=== PATIENT | male | born 1960 | race Caucasian/White ===

== ENCOUNTER 2017-03-21 18:12 | Emergency (ER) | payer MEDICARE, MEDICAID ==
[2017-03-21] MEDS ORDERED: IPRATROPIUM/ALBUTEROL 0.5-2.5 MG/3 ML AMPUL NEB SCH (19:45)
--- NOTE | 2017-03-21 19:45 | ER Document Report ---
ED Medical Screen (RME) - General Chief Complaint: Breathing Difficulty Stated Complaint: DIFFICULTY BREATHING Time Seen by Provider: 03/21/17 19:42 Notes: 57-year-old male with past medical history as recorded who presents today stating 10 days of some shortness of breath, mostly with exertion. Patient states some "congestion" in the chest. Patient states some chest discomfort over the last week and a half. He states baseline 1+ pitting edema to the legs. He denies any nausea, vomiting, or fevers. Patient does have a history of COPD. Patient states the shortness of breath is actually improved over the last 24 hours. Patient no longer smokes and is not on any home oxygen TRAVEL OUTSIDE OF THE [place] IN LAST 30 DAYS: No - Related Data Allergies/Adverse Reactions: Penicillins Allergy (Verified 03/21/17 19:21) Past Medical History Pulmonary Medical History: Reports: Hx COPD Denies: Hx Tuberculosis Renal/ Medical History: Denies: Hx Peritoneal Dialysis Past Surgical History: Reports: Hx Tonsillectomy - Immunizations Hx Diphtheria, Pertussis, Tetanus Vaccination: No - unk Physical Exam - Vital signs Vitals: Temp Pulse Resp BP Pulse Ox 97.5 F 104 H 20 113/86 H 99 03/21/17 18:46 03/21/17 18:46 03/21/17 18:46 03/21/17 18:46 03/21/17 18:46 Course - Vital Signs Vital signs: Temp Pulse Resp BP Pulse Ox 97.5 F 104 H 20 113/86 H 99 03/21/17 18:46 03/21/17 18:46 03/21/17 18:46 03/21/17 18:46 03/21/17 18:46
[2017-03-21 20:31] LABS: ABSOLUTE BASOPHILS # (AUTO) 0.1 10^3/uL (0.0-0.2); ABSOLUTE EOSINOPHILS # (AUTO) 0.1 10^3/uL (0.0-0.6); ABSOLUTE LYMPHOCYTES (AUTO) 1.3 10^3/uL (0.5-4.7); ABSOLUTE MONOCYTES (AUTO) 0.3 10^3/uL (0.1-1.4); ABSOLUTE NEUT (AUTO) 4.7 10^3/uL (1.7-8.2); BASOPHILS % (AUTO) 1.3 % (0-2); EOSINOPHILS % (AUTO) 1.8 % (0-6); HEMATOCRIT 39.7 % (37.9-51.0); HGB HCT DIFFERENCE -0.7; MEAN CORPUSCULAR HEMOGLOBIN 28.6 pg (27.0-33.4); MEAN CORPUSCULAR HGB CONC 32.7 g/dL (32.0-36.0); MEAN CORPUSCULAR VOLUME 88 fl (80-97); MONOCYTES % (AUTO) 5.1 % (3-13); RED BLOOD COUNT 4.54 10^6/uL (4.35-5.55); RED CELL DISTRIBUTION WIDTH 15.1 % (11.5-14.0); SEGMENTED NEUTROPHILS % (AUTO) 71.8 % (42-78); WHITE BLOOD COUNT 6.6 10^3/uL (4.0-10.5)
[2017-03-21 20:53] LABS: ANION GAP 15 (5-19); BLOOD UREA NITROGEN 16 mg/dL (7-20); CALCIUM 10.1 mg/dL (8.4-10.2); CARBON DIOXIDE 24 mmol/L (22-30); CHLORIDE 104 mmol/L (98-107); CREATININE RESULT 1.23 mg/dL (0.52-1.25); GLUCOSE 109 mg/dL (75-110); POTASSIUM 4.5 mmol/L (3.6-5.0)
[2017-03-21 21:03] LABS: TROPONIN I < 0.012 ng/mL
[2017-03-21] MEDS ORDERED: IPRATROPIUM/ALBUTEROL 0.5-2.5 MG/3 ML AMPUL NEB ONE (23:20)
[2017-03-21] MEDS ORDERED: PREDNISONE 20 MG TABLET PO ONE (23:43)
--- NOTE | 2017-03-21 23:49 | ER Document Report ---
ED General - General Chief Complaint: Breathing Difficulty Stated Complaint: DIFFICULTY BREATHING Time Seen by Provider: 03/21/17 19:42 Notes: Patient is a 57-year-old male with past medical history of COPD who presents with 3 days of shortness of breath. States that the symptoms of action been better today than they were 2 days ago. He has been using his inhalers at home with moderate improvement of symptoms. He notes that exertion tends to worsen his symptoms. He denies any associated chest pain, nausea, vomiting, diaphoresis or pain radiating into the arms, jaw or back. He has a history of similar symptoms in the past and has had COPD exacerbations. He has not seen his primary care doctor regarding today's concerns. He denies any increased sputum production, fever, chills or altered mental status. He denies any prior history of CHF although notes that he has chronic lower extremity edema. TRAVEL OUTSIDE OF THE [place] IN LAST 30 DAYS: No - Related Data Allergies/Adverse Reactions: Penicillins Allergy (Verified 03/21/17 19:21) Past Medical History - General Information source: Patient - Social History Smoking Status: Former Smoker Frequency of alcohol use: None Drug Abuse: None Lives with: Alone Family History: CAD, DM, Malignancy Patient has suicidal ideation: No Patient has homicidal ideation: No Pulmonary Medical History: Reports: Hx COPD Denies: Hx Tuberculosis Renal/ Medical History: Denies: Hx Peritoneal Dialysis Past Surgical History: Reports: Hx Tonsillectomy - Immunizations Hx Diphtheria, Pertussis, Tetanus Vaccination: No - unk Review of Systems - Review of Systems Notes: Constitutional: Negative for fever. HENT: Negative for sore throat. Eyes: Negative for visual changes. Cardiovascular: Negative for chest pain. Respiratory: Positive for shortness of breath. Gastrointestinal: Negative for abdominal pain, vomiting or diarrhea. Genitourinary: Negative for dysuria. Musculoskeletal: Negative for back pain. Skin: Negative for rash. Neurological: Negative for headaches, weakness or numbness. 10 point ROS negative except as marked above and in HPI. Physical Exam - Vital signs Vitals: Temp Pulse Resp BP Pulse Ox 97.5 F 104 H 20 113/86 H 99 03/21/17 18:46 03/21/17 18:46 03/21/17 18:46 03/21/17 18:46 03/21/17 18:46 Interpretation: Tachycardic Notes: PHYSICAL EXAMINATION: GENERAL: Well-appearing, well-nourished and in no acute distress. HEAD: Atraumatic, normocephalic. EYES: Pupils equal round and reactive to light, extraocular movements intact, sclera anicteric, conjunctiva are normal. ENT: nares patent, oropharynx clear without exudates. Moist mucous membranes. NECK: Normal range of motion, supple without lymphadenopathy LUNGS: Breath sounds clear to auscultation bilaterally and equal. No wheezes rales or rhonchi. HEART: Regular rate and rhythm without murmurs ABDOMEN: Soft, nontender, normoactive bowel sounds. No guarding, no rebound. No masses appreciated. EXTREMITIES: Normal range of motion, trace edema in the bilateral lower extremity as well as equal and symmetric. No cyanosis. NEUROLOGICAL: No focal neurological deficits. Moves all extremities spontaneously and on command. PSYCH: Normal mood, normal affect. SKIN: Warm, Dry, normal turgor, no rashes or lesions noted. Course - Re-evaluation Re-evalutation: 03/21/17 23:43 Patient presents with a mild exacerbation of their baseline COPD. Mild wheezing at time of presentation but vitals do not show significant hypoxemia or tachypnea. No retractions. Patient did clinically improve after receiving nebulizers here in the emergency department. Chest x-ray without evidence of an acute pneumonia. Laboratories do not show acute kidney injury or significant leukocytosis. Patient able to ambulate without any respiratory distress. Based on patient's overall reassuring assessment, I believe they are stable for outpatient management with steroids. Patient has nebulizers at home. I do not suspect an acute alternative pathology at this time based on history and exam including acute pulmonary embolus, ACS, pneumothorax, or aortic dissection. Patient did have appropriate BMP sent in triage which is elevated without an old for comparison. Do not believe that this is the cause of his symptoms today as he has no evidence of pulmonary edema or significant cardiac enlargement on chest x-ray, has no diminished breath sounds, no significant peripheral edema. He has also had complete resolution of his symptoms after receiving a nebulizer. However, I will refer to cardiology for an outpatient echocardiogram as patient has no known prior history of congestive failure. At this time will discharge with return precautions and follow-up recommendations. Verbal discharge instructions given a the bedside and opportunity for questions given. Medication warnings reviewed. Patient is in agreement with this plan and has verbalized understanding of return precautions and the need for primary care follow-up in the next 24-72 hours. - Vital Signs Vital signs: Temp Pulse Resp BP Pulse Ox 97.5 F 104 H 20 113/86 H 99 03/21/17 18:46 03/21/17 18:46 03/21/17 18:46 03/21/17 18:46 03/21/17 18:46 - Laboratory Result Diagrams: 03/21/17 19:50 03/21/17 19:50 Laboratory results interpreted by me: 03/21/17 03/21/17 19:50 19:50 Hgb 13.0 L RDW 15.1 H NT-Pro-B Natriuret Pep 6260 H - Diagnostic Test Radiology reviewed: Image reviewed, Reports reviewed Radiology results interpreted by me: 03/21/17 23:44 Chest x-ray: No pulmonary edema Discharge - Discharge Clinical Impression: Shortness of breath, COPD exacerbation Condition: Good Disposition: HOME, SELF-CARE Additional Instructions: You were seen for a COPD exacerbation. Your symptoms improved with treatment here in the emergency department. However, it is very important that you return to the emergency department immediately if you began to have worsening difficulty breathing that does not respond to your normal home nebulizers. You are also being sent home on a five-day course of steroids that you should start taking tomorrow. Please also follow closely with your primary care physician. You should return to emergency department if you develop fever greater than 101, persistent cough, persistent vomiting, pass out, or any other symptoms that are concerning to you. Please also follow up with the bread racker for an outpatient ultrasound of the heart as one of your laboratories today suggest you may have a component of heart failure. Prescriptions: Prednisone [Deltasone 20 mg Tablet] 3 tab PO DAILY 5 Days Referrals: EMMANUEL PEREZ MD [ACTIVE STAFF] - Follow up as needed
[2017-03-22 00:27] VITALS: BP 117/99
== END 2017-03-22 00:36 | disposition home or self-care (01) ==
LOC: ER 18:12
DX: R06.02 Shortness of breath (principal); J44.1 Chronic obstructive pulmonary disease with (acute) exacerbation; Z87.891 Personal history of nicotine dependence
CPT/HCPCS: 99285; 36415; 85025; 80048; 84484; 83880; 71020; A9270; J7512

== ENCOUNTER 2017-04-07 12:45 | Emergency (ER) | payer MEDICARE, MEDICAID ==
[2017-04-07] MEDS ORDERED: ALBUTEROL SULFATE 0.083% NEB 2.5 MG/3 ML AMPUL NEB SCH (13:30)
--- NOTE | 2017-04-07 13:35 | ER Document Report ---
ED Medical Screen (E) - General Chief Complaint: Shortness Of Breath Stated Complaint: SHORTNESS OF BREATH Time Seen by Provider: 04/07/17 13:27 Mode of Arrival: Ambulatory Notes: 57 yo male presents to ed for shortness of breath, weakness, insomnia since he ran out of his medication from his last visit. States he is not able to sleep more than an hour at a times. He states he is tired and weak all the time. States he has not follow up with primary md yet because he was getting the run around, but has [facility] Monday at 13 :15. I examined this patient in [facility] and started treatment. He will be seen by another provide in the ed for his treatment. TRAVEL OUTSIDE OF THE [place] IN LAST 30 DAYS: No - Related Data Allergies/Adverse Reactions: Penicillins Allergy (Verified 04/07/17 12:49) Past Medical History Pulmonary Medical History: Reports: Hx COPD Denies: Hx Tuberculosis Renal/ Medical History: Denies: Hx Peritoneal Dialysis Past Surgical History: Reports: Hx Tonsillectomy - Immunizations Hx Diphtheria, Pertussis, Tetanus Vaccination: No - unk Physical Exam - Vital signs Vitals: Temp Pulse Resp BP Pulse Ox 97.8 F 114 H 22 H 132/97 H 97 04/07/17 12:49 04/07/17 12:49 04/07/17 12:49 04/07/17 12:49 04/07/17 12:49 Course - Vital Signs Vital signs: Temp Pulse Resp BP Pulse Ox 97.8 F 114 H 22 H 132/97 H 97 04/07/17 12:49 04/07/17 12:49 04/07/17 12:49 04/07/17 12:49 04/07/17 12:49
--- NOTE | 2017-04-07 14:17 | RADIOLOGY REPORT (SQ) ---
EXAM DESCRIPTION: CHEST PA/LAT COMPLETED DATE/TIME: 04/07/2017 1:49 pm REASON FOR STUDY: short of breath pale diaphoretic hx copd COMPARISON: 03/21/2017 EXAM PARAMETERS: NUMBER OF VIEWS: two views TECHNIQUE: Digital Frontal and Lateral radiographic views of the chest acquired. RADIATION DOSE: NA LIMITATIONS: none FINDINGS: LUNGS AND PLEURA: Interstitial changes are present. The perihilar markings are prominent. No localized pneumonia is present. There is mild blunting of the right costophrenic angle. MEDIASTINUM AND HILAR STRUCTURES: No masses or contour abnormalities. HEART AND VASCULAR STRUCTURES: Heart normal size. No evidence for failure. BONES: No acute findings. HARDWARE: None in the chest. OTHER: No other significant finding. IMPRESSION: Chronic lung changes versus viral syndrome. No localized pneumonia is present. TECHNICAL DOCUMENTATION: JOB ID: [id number] [employer]- All Rights Reserved
[2017-04-07] MEDS ORDERED: IPRATROPIUM/ALBUTEROL 0.5-2.5 MG/3 ML AMPUL NEB ONE (14:21)
[2017-04-07 14:32] LABS: ABSOLUTE BASOPHILS # (AUTO) 0.1 10^3/uL (0.0-0.2); ABSOLUTE LYMPHOCYTES (AUTO) 1.5 10^3/uL (0.5-4.7); ABSOLUTE MONOCYTES (AUTO) 0.5 10^3/uL (0.1-1.4); ABSOLUTE NEUT (AUTO) 4.7 10^3/uL (1.7-8.2); EOSINOPHILS % (AUTO) 0.6 % (0-6); HEMATOCRIT 39.3 % (37.9-51.0); HEMOGLOBIN 12.8 g/dL (13.5-17.0); HGB HCT DIFFERENCE -0.9; LYMPHOCYTES % (AUTO) 21.4 % (13-45); MEAN CORPUSCULAR HEMOGLOBIN 27.7 pg (27.0-33.4); MEAN CORPUSCULAR HGB CONC 32.5 g/dL (32.0-36.0); MEAN CORPUSCULAR VOLUME 85 fl (80-97); MONOCYTES % (AUTO) 7.4 % (3-13); RED CELL DISTRIBUTION WIDTH 15.7 % (11.5-14.0); SEGMENTED NEUTROPHILS % (AUTO) 68.6 % (42-78); WHITE BLOOD COUNT 6.9 10^3/uL (4.0-10.5)
[2017-04-07 14:56] LABS: ALANINE AMINOTRANSFERASE 65 U/L (21-72); ALBUMIN 3.8 g/dL (3.5-5.0); ALKALINE PHOSPHATASE 98 U/L (38-126); ANION GAP 14 (5-19); ASPARTATE AMINO TRANSFERASE 47 U/L (17-59); BILIRUBIN,DIRECT 0.5 mg/dL (0.0-0.4); BILIRUBIN,TOTAL 1.6 mg/dL (0.2-1.3); BLOOD UREA NITROGEN 19 mg/dL (7-20); CALCIUM 10.5 mg/dL (8.4-10.2); CARBON DIOXIDE 20 mmol/L (22-30); CHLORIDE 108 mmol/L (98-107); CREATINE KINASE 50 U/L (55-170); CREATININE RESULT 1.14 mg/dL (0.52-1.25); GLUCOSE 102 mg/dL (75-110); SODIUM 141.8 mmol/L (137-145); TOTAL PROTEIN 7.1 g/dL (6.3-8.2)
--- NOTE | 2017-04-07 14:57 | ER Document Report ---
ED General - General Chief Complaint: Shortness Of Breath Stated Complaint: SHORTNESS OF BREATH Time Seen by Provider: 04/07/17 13:27 Mode of Arrival: Ambulatory Information source: Patient Notes: 57-year-old male history of COPD who is run out of his medications presents with complaints of generalized weakness. Denies any chest pain, notes that he has had insomnia ever since running out of his medications. Patient has not been able to follow-up with primary care physician but states she will do so shortly. Patient denies any fevers or chills denies any change in his shortness of breath notes that has been constant for months TRAVEL OUTSIDE OF THE [place] IN LAST 30 DAYS: No - HPI Onset: Other Onset/Duration: Persistent Quality of pain: No pain Severity: Mild Pain Level: Denies Associated symptoms: Shortness of breath, Weakness Exacerbated by: Denies Relieved by: Denies Similar symptoms previously: Yes Recently seen / treated by doctor: Yes - Related Data Allergies/Adverse Reactions: Penicillins Allergy (Verified 04/07/17 12:49) Past Medical History - Social History Smoking Status: Former Smoker Cigarette use (# per day): No Chew tobacco use (# tins/day): No Smoking Education Provided: No Frequency of alcohol use: Rare Drug Abuse: None Family History: CAD, DM, Malignancy Patient has suicidal ideation: No Patient has homicidal ideation: No Pulmonary Medical History: Reports: Hx COPD Denies: Hx Tuberculosis Renal/ Medical History: Denies: Hx Peritoneal Dialysis Past Surgical History: Reports: Hx Tonsillectomy - Immunizations Hx Diphtheria, Pertussis, Tetanus Vaccination: No - unk Review of Systems - Review of Systems Notes: REVIEW OF SYSTEMS: CONSTITUTIONAL : Denies fever, chills, or sweats. Denies recent illness. EENT: Denies eye, ear, throat, or mouth pain or symptoms. Denies nasal or sinus congestion or discharge. Denies throat, tongue, or mouth swelling or difficulty swallowing. CARDIOVASCULAR: Denies chest pain. Denies palpitations or racing or irregular heart beat. Denies ankle edema. RESPIRATORY: Shortness of breath GASTROINTESTINAL: Denies abdominal pain or distention. Denies nausea, vomiting , or diarrhea. Denies blood in vomitus, stools, or per rectum. Denies black, tarry stools. Denies constipation. GENITOURINARY: Denies difficulty urinating, painful urination, burning, frequency, blood in urine, or discharge. MUSCULOSKELETAL: Denies back or neck pain or stiffness. Denies joint pain or swelling. SKIN: Denies rash, lesions or sores. HEMATOLOGIC : Denies easy bruising or bleeding. LYMPHATIC: Denies swollen, enlarged glands. NEUROLOGICAL: Generalized weakness PSYCHIATRIC: Denies anxiety or stress. Denies depression, suicidal ideation, or homicidal ideation. Admits to insomnia ALL OTHER SYSTEMS REVIEWED AND NEGATIVE. Dictation was performed using [employer] voice recognition software PHYSICAL EXAMINATION: GENERAL: Well-appearing, well-nourished and in no acute distress. Poor hygiene HEAD: Atraumatic, normocephalic. EYES: Pupils equal round and reactive to light, extraocular movements intact, sclera anicteric, conjunctiva are normal. ENT: Nares patent, oropharynx clear without exudates. Moist mucous membranes. NECK: Normal range of motion, supple without lymphadenopathy LUNGS: Breath sounds clear to auscultation bilaterally and equal. No wheezes rales or rhonchi. HEART: Regular rate and rhythm without murmurs ABDOMEN: Soft, nontender, nondistended abdomen. No guarding, no rebound. No masses appreciated. Musculoskeletal: Normal range of motion, no pitting or edema. No cyanosis. NEUROLOGICAL: Cranial nerves grossly intact. Normal speech, normal gait. Normal sensory, motor exams PSYCH: Normal mood, normal affect. SKIN: Warm, Dry, normal turgor, no rashes or lesions noted. Physical Exam - Vital signs Vitals: Temp Pulse Resp BP Pulse Ox 97.8 F 114 H 22 H 132/97 H 97 04/07/17 12:49 04/07/17 12:49 04/07/17 12:49 04/07/17 12:49 04/07/17 12:49 Course - Re-evaluation Re-evalutation: 04/07/17 14:56 It appears no significant distress, he is currently receiving breathing treatments which is making him slightly tachycardic and tachypneic, lab work imaging is pending at this time patient otherwise has no specific complaints 04/07/17 16:18 04/07/17 16:34 CTA of the chest notes only a small effusion, patient was made aware of this. Otherwise he appears well, does require follow-up with pulmonology and cardiology After performing a Medical Screening Examination, I estimate there is LOW risk for RUPTURED ESOPHAGUS, PNEUMOTHORAX, PULMONARY EMBOLISM, ACUTE CORONARY SYNDROME, OR THORACIC AORTIC DISSECTION, thus I consider the discharge disposition reasonable. I have reevaluated this patient multiple times and no significant life threatening changes are noted. The patient and I have discussed the diagnosis and risks, and we agree with discharging home with close follow-up. We also discussed returning to the Emergency Department immediately if new or worsening symptoms occur. We have discussed the symptoms which are most concerning (e.g., bloody sputum, worsening pain or shortness of breath) that necessitate immediate return. - Vital Signs Vital signs: Temp Pulse Resp BP Pulse Ox 97.8 F 114 H 28 H 136/114 H 85 L 04/07/17 12:49 04/07/17 12:49 04/07/17 16:00 04/07/17 16:01 04/07/17 16:01 - Laboratory Result Diagrams: 04/07/17 14:15 04/07/17 14:15 Laboratory results interpreted by me: 04/07/17 04/07/17 14:15 14:15 Hgb 12.8 L RDW 15.7 H Chloride 108 H Carbon Dioxide 20 L Calcium 10.5 H Total Bilirubin 1.6 H Direct Bilirubin 0.5 H Creatine Kinase 50 L - Diagnostic Test Radiology reviewed: Image reviewed, Reports reviewed - Fusion noted - EKG Interpretation by Me EKG shows normal: Sinus rhythm, [place], Intervals, QRS Complexes, ST-T Waves - not specific st changed in V3-V5 Discharge - Discharge Clinical Impression: COPD exacerbation, Pleural effusion Condition: Stable Disposition: HOME, SELF-CARE Instructions: Chronic Obstructive Lung Disease ([facility]), Pleural Effusion ([facility]) Prescriptions: Prednisone [Deltasone 20 mg Tablet] 3 tab PO DAILY 5 Days Referrals: CECE MASON MD [Primary Care Provider] - Follow up as needed JAY ESTH MD [ACTIVE STAFF] - Follow up tomorrow JODIE PAUL MD [ACTIVE STAFF] - Follow up tomorrow
[2017-04-07 15:08] LABS: CREATINE KINASE MB 0.65 ng/mL (<4.55)
[2017-04-07 15:19] LABS: TROPONIN I < 0.012 ng/mL
--- NOTE | 2017-04-07 16:06 | RADIOLOGY REPORT (SQ) ---
EXAM DESCRIPTION: CTA CHEST COMPLETED DATE/TIME: 04/07/2017 3:42 pm REASON FOR STUDY: sob COMPARISON: None. TECHNIQUE: CT scan of the chest performed using helical scanning technique with dynamic intravenous contrast injection. Images reviewed with lung, soft tissue and bone windows. Reconstructed coronal and sagittal MPR images reviewed. Additional 3 dimensional post-processing performed to develop Maximal Intensity Projection images (ID P). All images stored on PACS. All CT scanners at this facility use dose modulation, iterative reconstruction, and/or weight based d osing when appropriate to reduce radiation dose to as low as reasonably achievable (ALARA). [facility]: Dose Right [facility]: CareDose [facility]: Dose Right [facility]: Teradose 4D [facility]: Verastem CONTRAST TYPE AND DOSE: 78 mL Isovue 370- low osmolar. RENAL FUNCTION: BUN 19 creatinine 1.1 RADIATION DOSE: 36.19 mGy. LIMITATIONS: Motion. FINDINGS: LUNGS AND PLEURA: Diffuse interlobular septal thickening. Ground-glass attenuation in the lower lungs. No focal airspace disease. Trace right pleural effusion volume estimated less than 50 0 cc. AORTA AND GREAT VESSELS: No aneurysm or dissection. HEART: Cardiomegaly. No pericardial effusion. PULMONARY ARTERIES: No emboli visualized in the main pulmonary arteries or the segmental branches. HILAR AND MEDIASTINAL STRUCTURES: Small mediastinal nodes measuring up to about [address]. HARDWARE: None in the chest. UPPER ABDOMEN: No significant findings. Limited exam. THYROID AND OTHER SOFT TISSUES: No masses. No adenopathy. BONES: Compression fracture T11 approximately 50% height loss appears chronic. No significant retrop ulsion. 3D MIPS: Confirm above findings. OTHER: No other significant finding. IMPRESSION: 1. No PE. 2. Diffuse interstitial changes. Small right pleural effusion. Etiology could be inflammatory, card iogenic or noncardiogenic edema, or atypical infection. Clinical correlation is needed. TECHNICAL DOCUMENTATION: JOB ID: [id number] Quality ID # [id number]: Final reports with documentation of one or more dose reduction techniques (e.g., Au tomated exposure control, adjustment of the mA and/or kV according to patient size, use of iterative reconstruction technique) 2010 [employer]- All Rights Reserved
[2017-04-07 16:37] VITALS: BP 128/88
--- NOTE | 2017-04-07 17:02 | EKG REPORT ---
SEVERITY:- ABNORMAL ECG - SINUS TACHYCARDIA LEFT ATRIAL ABNORMALITY LEFT AXIS DEVIATION CONSIDER ANTEROSEPTAL INFARCT BORDERLINE PROLONGED QT INTERVAL LVH : Confirmed by: Argelia Dodge 07-Apr-2017 17:02:29
== END 2017-04-07 16:37 | disposition home or self-care (01) ==
LOC: ER 12:45
DX: J44.1 Chronic obstructive pulmonary disease with (acute) exacerbation (principal); J90 Pleural effusion, not elsewhere classified; R06.02 Shortness of breath; Z87.891 Personal history of nicotine dependence
CPT/HCPCS: 93005; 94640; 99285; 36415; 82553; 82550; 85025; 80053; 84484; 71020; 71275; 93010; A9270 ×2; J7620

== ENCOUNTER 2017-04-26 11:23 | Inpatient (IN) | payer MEDICARE, MEDICAID ==
[2017-04-26 12:16] LABS: ABSOLUTE LYMPHOCYTES (AUTO) 0.9 10^3/uL (0.5-4.7); ABSOLUTE MONOCYTES (AUTO) 1.1 10^3/uL (0.1-1.4); ABSOLUTE NEUT (AUTO) 11.4 10^3/uL (1.7-8.2); BASOPHILS % (AUTO) 0.4 % (0-2); HEMATOCRIT 40.6 % (37.9-51.0); HEMOGLOBIN 12.9 g/dL (13.5-17.0); HGB HCT DIFFERENCE -1.9; LYMPHOCYTES % (AUTO) 6.8 % (13-45); MEAN CORPUSCULAR HEMOGLOBIN 26.6 pg (27.0-33.4); MEAN CORPUSCULAR HGB CONC 31.9 g/dL (32.0-36.0); MEAN CORPUSCULAR VOLUME 84 fl (80-97); MONOCYTES % (AUTO) 8.4 % (3-13); RED BLOOD COUNT 4.86 10^6/uL (4.35-5.55); RED CELL DISTRIBUTION WIDTH 17.3 % (11.5-14.0); SEGMENTED NEUTROPHILS % (AUTO) 84.4 % (42-78); WHITE BLOOD COUNT 13.5 10^3/uL (4.0-10.5)
[2017-04-26 12:17] LABS: VENOUS BLOOD BASE EXCESS -0.8 mmol/L; VENOUS BLOOD HCO3 22.6 mmol/L (20-32); VENOUS BLOOD PCO2 33.6 mmHg (35-63); VENOUS BLOOD PH 7.45 (7.30-7.42)
[2017-04-26 12:22] LABS: AMORPHOUS SEDIMENT,URINE TRACE /HPF; APPEARANCE,URINE CLOUDY; BILIRUBIN,URINE SMALL (NEGATIVE); GLUCOSE, URINE NEGATIVE (NEGATIVE); KETONES,URINE TRACE mg/dL (NEGATIVE); LEUKOCYTE ESTERASE,URINE NEGATIVE (NEGATIVE); NITRITE,URINE NEGATIVE (NEGATIVE); PROTEIN,URINE >=500 mg/dL (NEGATIVE); URINE SPECIFIC GRAVITY 1.027
[2017-04-26] MEDS ORDERED: NORMAL SALINE 1000 ML 1,000 ML IV ONE (12:24)
[2017-04-26 12:36] LABS: PROTHROMBIN TIME 16.7 SEC (11.4-15.4)
[2017-04-26 12:40] LABS: ALANINE AMINOTRANSFERASE 79 U/L (21-72); ALBUMIN 3.3 g/dL (3.5-5.0); ALKALINE PHOSPHATASE 154 U/L (38-126); ANION GAP 17 (5-19); ASPARTATE AMINO TRANSFERASE 28 U/L (17-59); BILIRUBIN,DIRECT 1.1 mg/dL (0.0-0.4); BILIRUBIN,TOTAL 2.7 mg/dL (0.2-1.3); BLOOD UREA NITROGEN 15 mg/dL (7-20); CALCIUM 8.5 mg/dL (8.4-10.2); CARBON DIOXIDE 21 mmol/L (22-30); CHLORIDE 102 mmol/L (98-107); CREATININE RESULT 1.26 mg/dL (0.52-1.25); GLUCOSE 104 mg/dL (75-110); POTASSIUM 3.6 mmol/L (3.6-5.0); SODIUM 139.7 mmol/L (137-145); TOTAL PROTEIN 6.7 g/dL (6.3-8.2)
[2017-04-26] MEDS ORDERED: CEFTRIAXONE 1 GM/D5W RTU 50 ML IV ONE (12:40)
--- NOTE | 2017-04-26 12:54 | RADIOLOGY REPORT (SQ) ---
EXAM DESCRIPTION: CHEST PA/LAT COMPLETED DATE/TIME: 04/26/2017 12:25 pm REASON FOR STUDY: pna COMPARISON: 04/07/2017 EXAM PARAMETERS: NUMBER OF VIEWS: two views TECHNIQUE: Digital Frontal and Lateral radiographic views of the chest acquired. RADIATION DOSE: NA LIMITATIONS: none FINDINGS: LUNGS AND PLEURA: There is increased opacification in the right lower lobe. There is a ri ght pleural effusion. MEDIASTINUM AND HILAR STRUCTURES: No masses or contour abnormalities. HEART AND VASCULAR STRUCTURES: Cardiomegaly. No evidence of failure. BONES: No acute findings. HARDWARE: None in the chest. OTHER: No other significant finding. IMPRESSION: 1. Right lower lobe pneumonia with a small right pleural effusion. 2. Cardiomegaly without CHF. TECHNICAL DOCUMENTATION: JOB ID: [id number] [employer]- All Rights Reserved
[2017-04-26] MEDS ORDERED: AZITHROMYCIN INJ 500 MG VIAL IV ONE (13:12)
[2017-04-26] MEDS ORDERED: FUROSEMIDE INJ/PF 40 MG/4 ML SDV IV ONE (13:17)
[2017-04-26] MEDS ORDERED: ALBUTEROL SULFATE 0.083% NEB 2.5 MG/3 ML AMPUL NEB ONE (13:27)
--- NOTE | 2017-04-26 13:29 | ER Document Report ---
ED General - General Chief Complaint: Shortness Of Breath Stated Complaint: SHORTNESS OF BREATH Time Seen by Provider: 04/26/17 11:29 TRAVEL OUTSIDE OF THE [place] IN LAST 30 DAYS: No - HPI Patient complains to provider of: Shortness of breath Notes: Patient coming in for shortness of breath. Patient states for the last 5 week he has not felt very well. Patient was seen proximal and 5 weeks ago had CTA at that time showed pleural effusion concern for possible atypical infection. Patient was given steroids no antibiotics. Patient states history of COPD that denies a history of CHF. Patient states productive cough patient went to urgent care was found to have a fever greater than 100.4 and is transferred to the ER for further evaluation. Denies any recent travel denies any PE history. Denies any chest pain abdominal pain. - Related Data Allergies/Adverse Reactions: Penicillins Allergy (Verified 04/07/17 12:49) Home Medications: Current Home Medications Albuterol Sulfate [Proair HFA] 1 puff IH ASDIR PRN 04/26/17 [History] Budesonide/Formoterol Fumarate [Symbicort Hfa 160-4.5 Mcg Inhaler 6 gm] 2 puff IH Q12 04/26/17 [History] Guaifenesin [Mucinex] 600 mg PO DAILY 04/26/17 [History] Tiotropium [place] [Spiriva Handihaler 18 mcg/dose (30 Dose)] 1 cap IH DAILY [History] Past Medical History - Social History Smoking Status: Never Smoker Chew tobacco use (# tins/day): No Frequency of alcohol use: None Drug Abuse: None Family History: CAD, DM, Malignancy Pulmonary Medical History: Reports: Hx COPD Denies: Hx Tuberculosis Renal/ Medical History: Denies: Hx Peritoneal Dialysis Past Surgical History: Reports: Hx Tonsillectomy - Immunizations Hx Diphtheria, Pertussis, Tetanus Vaccination: No - unk Review of Systems - Review of Systems Constitutional: No symptoms reported EENT: No symptoms reported Cardiovascular: No symptoms reported Respiratory: Short of breath, Sputum Gastrointestinal: No symptoms reported Genitourinary: No symptoms reported Male Genitourinary: No symptoms reported Musculoskeletal: No symptoms reported Skin: No symptoms reported Hematologic/Lymphatic: No symptoms reported Neurological/Psychological: No symptoms reported -: Yes All other systems reviewed and negative Physical Exam - Vital signs Vitals: Temp Pulse Resp BP Pulse Ox 98.2 F 118 H 18 120/83 99 04/26/17 11:31 04/26/17 11:31 04/26/17 11:31 04/26/17 11:31 04/26/17 11:31 Interpretation: Tachycardic, Tachypneic, Febrile - General General appearance: Appears well, Alert - HEENT Head: Normocephalic, Atraumatic Eyes: Normal Pupils: PERRL - Respiratory Respiratory status: Respiratory distress - Mild tachypnea, Tachypnea Chest status: Nontender Breath sounds: Rhonchi Chest palpation: Normal - Cardiovascular Rhythm: Tachycardia Heart sounds: Normal auscultation Murmur: No - Abdominal Inspection: Normal Distension: No distension Bowel sounds: Normal Tenderness: Nontender Organomegaly: No organomegaly - Back Back: Normal, Nontender - Extremities General upper extremity: Normal inspection, Nontender, Normal color, Normal ROM , Normal temperature General lower extremity: Normal inspection, Nontender, Normal color, Normal ROM , Normal temperature, Normal weight bearing. No: Hugo's sign - Neurological Neuro grossly intact: Yes Cognition: Normal Orientation: AAOx4 Jay Coma Scale Eye Opening: Spontaneous Yunior Coma Scale Verbal: Oriented Yunior Coma Scale Motor: Obeys Commands Jay Coma Scale Total: 15 Speech: Normal Motor strength normal: LUE, RUE, LLE, RLE Sensory: Normal - Psychological Associated symptoms: Normal affect, Normal mood - Skin Skin Temperature: Warm Skin Moisture: Dry Skin Color: Normal Course - Re-evaluation Re-evalutation: 04/26/17 15:03 Patient coming in for evaluation shortness of breath. Chest x-ray shows pleural effusion right lower lobe pneumonia. Due to the past CTA showing atypical infection of the start patient on Rocephin and azithromycin. Patient also has bilateral 2+ pitting edema in his legs although still denies a history of CHF. Patient's BNP is elevated from previous visit from 6000 to about 10, 000. Patient continued to have difficulty breathing after breathing treatment was found sleeping no signs of hypoxia for the past the patient on oxygen Lasix was also given. More likely patient is having acute COPD exacerbation more likely underlying CHF possible right-sided failure along with pneumonia. Discussed with the hospitalist will place the patient IMCU. - Vital Signs Vital signs: Temp Pulse Resp BP Pulse Ox 98.2 F 118 H 18 120/83 99 04/26/17 11:31 04/26/17 11:31 04/26/17 11:35 04/26/17 11:31 04/26/17 11:31 - Laboratory Result Diagrams: 04/26/17 12:00 04/26/17 12:00 Laboratory results interpreted by me: 04/26/17 04/26/17 04/26/17 12:00 12:00 12:00 WBC 13.5 H Hgb 12.9 L MCH 26.6 L MCHC 31.9 L RDW 17.3 H Seg Neutrophils % 84.4 H Lymphocytes % 6.8 L Absolute Neutrophils 11.4 H PT 16.7 H VBG pH VBG pCO2 Carbon Dioxide 21 L Creatinine 1.26 H Est GFR (Non-Af Amer) 59 L Total Bilirubin 2.7 H Direct Bilirubin 1.1 H ALT 79 H Alkaline Phosphatase 154 H NT-Pro-B Natriuret Pep Albumin 3.3 L Urine Protein Urine Ketones Urine Blood Urine Bilirubin Urine Urobilinogen 04/26/17 04/26/17 04/26/17 12:00 12:00 12:00 WBC Hgb MCH MCHC RDW Seg Neutrophils % Lymphocytes % Absolute Neutrophils PT VBG pH 7.45 H VBG pCO2 33.6 L Carbon Dioxide Creatinine Est GFR (Non-Af Amer) Total Bilirubin Direct Bilirubin ALT Alkaline Phosphatase NT-Pro-B Natriuret Pep 21707 H Albumin Urine Protein >=500 H Urine Ketones TRACE H Urine Blood SMALL H Urine Bilirubin SMALL H Urine Urobilinogen 4.0 H Critical Care Note - Critical Care Note Total time excluding time spent on procedures (mins): 35 Comments: Multiple evaluations due to mild to moderate respiratory distress. Discharge - Discharge Clinical Impression: Pleural effusion, COPD exacerbation, SIRS (systemic inflammatory response syndrome) Pneumonia Qualifiers: Pneumonia type: due to unspecified organism Laterality: right Lung location: lower lobe of lung Qualified Code(s): J18.1 - Lobar pneumonia, unspecified organism Congestive heart failure Qualifiers: Congestive heart failure type: unspecified congestive heart failure type Congestive heart failure chronicity: unspecified congestive heart failure chronicity Qualified Code(s): I50.9 - Heart failure, unspecified Condition: Good Disposition: ADMITTED INPATIENT Admitting Provider: Hospitalist - [facility] Unit Admitted: [facility]
[2017-04-26] MEDS ORDERED: ACETAMINOPHEN 325 MG TABLET PO PRN (14:15)
[2017-04-26] MEDS ORDERED: ONDANSETRON HCL INJ/PF 4 MG/2 ML SDV IV PRN (14:15)
[2017-04-26] MEDS ORDERED: ONDANSETRON 4 MG TAB.RAPDIS PO PRN (14:15)
--- NOTE | 2017-04-26 14:47 | PDOC H&P ---
History of Present Illness Admission Date/PCP: 04/26/17 13:45 CECE MASON MD Patient complains of: Cough and shortness of breath History of Present Illness: ZEENAT MENDES JR is a 57 year old male presents with a 5 week history of cough and shortness of breath. He had a nonproductive cough. He also over the last several weeks has had increasing weight, orthopnea, PND as well as some low -grade fevers. The patient is found to have a right lower lobe pneumonia today on chest x-ray and has an acute COPD on exam with expiratory wheezes. Denies any chest pain. He denies having any previous cardiac history although he does have a family history of cardiac disease. Past Medical History Cardiac Medical History: Reports: None Pulmonary Medical History: Reports: Chronic Obstructive Pulmonary Disease (COPD) Denies: Tuberculosis EENT Medical History: Reports: None Neurological Medical History: Reports: None Endocrine Medical History: Reports: None Renal/ Medical History: Reports: None Malignancy Medical History: Reports: None GI Medical History: Reports: None Musculoskeltal Medical History: Reports: None Psychiatric Medical History: Reports: None Infectious Medical History: Reports: None Past Surgical History Past Surgical History: Reports: Tonsillectomy Social History Information Source: Patient Lives with: Alone Smoking Status: Former Smoker - Quit 4 years ago Frequency of Alcohol Use: Rare Hx Recreational Drug Use: Yes - Last used 2 1/2 mos ago Drugs: Marijuana Hx Prescription Drug Abuse: No - Advance Directive Resuscitation Status: Do Not Resuscitate Surrogate healthcare decision maker:: Does not identify anyone to be a surrogate Family History Family History: CAD, DM, Malignancy Family History: Mother had brain cancer and diabetes. Father at age 42 from a brain aneurysm as well as coronary artery disease Parental Family History Reviewed: Yes Children Family History Reviewed: No Sibling(s) Family History Reviewed.: No Medication/Allergy Allergies/Adverse Reactions: Penicillins Allergy (Verified 04/07/17 12:49) Review of Systems Constitutional: PRESENT: fever(s), weight gain. ABSENT: chills, headache(s) Eyes: ABSENT: visual disturbances Ears: ABSENT: hearing changes Cardiovascular: PRESENT: dyspnea on exertion, edema, orthropnea. ABSENT: chest pain, palpitations Respiratory: PRESENT: cough, dyspnea. ABSENT: hemoptysis, sputum Gastrointestinal: ABSENT: abdominal pain, constipation, diarrhea, hematemesis, hematochezia, nausea, vomiting Genitourinary: ABSENT: dysuria, hematuria Musculoskeletal: ABSENT: joint swelling Integumentary: ABSENT: rash, wounds Neurological: ABSENT: abnormal gait, abnormal speech, confusion, dizziness, focal weakness, syncope Psychiatric: ABSENT: anxiety, depression Endocrine: ABSENT: cold intolerance, heat intolerance, polydipsia, polyuria Hematologic/Lymphatic: ABSENT: easy bleeding, easy bruising Physical Exam Vital Signs: Temp Pulse Resp BP Pulse Ox 98.2 F 118 H 18 120/83 99 04/26/17 11:31 04/26/17 11:31 04/26/17 11:35 04/26/17 11:31 04/26/17 11:31 General appearance: PRESENT: no acute distress, well-developed, well-nourished Head exam: PRESENT: atraumatic, normocephalic Eye exam: PRESENT: conjunctiva pink, EOMI, PERRLA. ABSENT: scleral icterus Ear exam: PRESENT: normal external ear exam Mouth exam: PRESENT: moist, tongue midline Neck exam: ABSENT: carotid bruit, JVD, lymphadenopathy, thyromegaly Respiratory exam: PRESENT: wheezes - Expiratory wheeze. ABSENT: rales, rhonchi Cardiovascular exam: PRESENT: tachycardia. ABSENT: diastolic murmur, rubs, systolic murmur Vascular exam: PRESENT: normal capillary refill GI/Abdominal exam: PRESENT: normal bowel sounds, soft. ABSENT: distended, guarding, mass, organolmegaly, rebound, tenderness Rectal exam: PRESENT: deferred Extremities exam: PRESENT: pedal edema, +1 edema. ABSENT: calf tenderness, clubbing Neurological exam: PRESENT: alert, awake, oriented to person, oriented to place , oriented to time, oriented to situation, CN II-XII grossly intact. ABSENT: motor sensory deficit Psychiatric exam: PRESENT: appropriate affect Skin exam: PRESENT: dry, intact, warm. ABSENT: cyanosis, rash Results Impressions: Chest X-Ray 04/26/17 11:32 IMPRESSION: 1. Right lower lobe pneumonia with a small right pleural effusion. 2. Cardiomegaly without CHF. Assessment & Plan - Diagnosis (1) Pneumonia Qualifiers: Pneumonia type: due to unspecified organism Laterality: right Lung location: lower lobe of lung Qualified Code(s): J18.1 - Lobar pneumonia, unspecified organism Is this a current diagnosis for this admission?: YesPlan: Has community-acquired pneumonia probable gram-positive cocci. Will treat with Rocephin and Zithromax. Sputum and blood cultures have been obtained. (2) COPD exacerbation Is this a current diagnosis for this admission?: YesPlan: Quit smoking 4 years ago. He has a COPD exacerbation made worse with pneumonia. Will give IV Solu-Medrol, nebulizers and antibiotics. (3) Congestive heart failure Is this a current diagnosis for this admission?: YesPlan: Patient has no previous history of congestive heart failure however he has orthopnea, PND, weight gain and lower extremity edema. All of this is suggestive of congestive heart failure and we will check an echocardiogram to confirm. - Time Time Spent: 50 to 70 Minutes - Inpatient Certification Medical Necessity: Need Close Monitoring Due to Risk of Patient Decompensation, Need for IV Antibiotics - Plan Summary Plan Summary: Admit as a regular inpatient as I anticipate this will require greater than 2 midnight stay because of his need for IV antibiotics and IV steroids.
[2017-04-26] MEDS ORDERED: ENOXAPARIN SODIUM INJ 40 MG/0.4 ML DISP.SYRIN SUBCUT ONE (16:30)
--- NOTE | 2017-04-26 17:02 | EKG REPORT ---
SEVERITY:- ABNORMAL ECG - SINUS TACHYCARDIA PROBABLE LEFT ATRIAL ABNORMALITY LEFT ANTERIOR FASCICULAR BLOCK CONSIDER ANTEROSEPTAL INFARCT NONSPECIFIC T ABNORMALITIES, LATERAL LEADS : Confirmed by: Sandi Alan MD 26-Apr-2017 17:01:41
[2017-04-26] MEDS: METHYLPREDNISOLONE INJ 40 MG/1 ML SDV IV SCH (22:48)
[2017-04-26] MEDS: IPRATROPIUM/ALBUTEROL 0.5-2.5 MG/3 ML AMPUL NEB PRN (23:42)
[2017-04-27] MEDS: METHYLPREDNISOLONE INJ 40 MG/1 ML SDV IV SCH ×3 (05:26→22:38)
[2017-04-27 05:28] LABS: HEMATOCRIT 36.2 % (37.9-51.0); HEMOGLOBIN 11.4 g/dL (13.5-17.0); MEAN CORPUSCULAR HEMOGLOBIN 26.3 pg (27.0-33.4); MEAN CORPUSCULAR HGB CONC 31.6 g/dL (32.0-36.0); MEAN CORPUSCULAR VOLUME 83 fl (80-97); RED BLOOD COUNT 4.35 10^6/uL (4.35-5.55); RED CELL DISTRIBUTION WIDTH 16.6 % (11.5-14.0); WHITE BLOOD COUNT 13.7 10^3/uL (4.0-10.5)
[2017-04-27 05:36] LABS: ANION GAP 13 (5-19); BLOOD UREA NITROGEN 21 mg/dL (7-20); CALCIUM 8.3 mg/dL (8.4-10.2); CARBON DIOXIDE 24 mmol/L (22-30); CHLORIDE 105 mmol/L (98-107); CREATININE RESULT 1.22 mg/dL (0.52-1.25); GLUCOSE 183 mg/dL (75-110); MAGNESIUM 2.1 mg/dL (1.6-2.3); POTASSIUM 3.7 mmol/L (3.6-5.0); SODIUM 141.7 mmol/L (137-145)
[2017-04-27 05:49] LABS: BAND NEUTROPHILS % (MANUAL) 1 % (3-5); BASOPHILS % (MANUAL) 0 % (0-2); EOSINOPHILS % (MANUAL) 0 % (0-6); LYMPHOCYTES % (MANUAL) 5 % (13-45); TOTAL CELLS COUNTED 100
[2017-04-27 05:50] LABS: TOXIC GRANULATION SLIGHT
[2017-04-27 05:51] LABS: ANISOCYTOSIS SLIGHT; BURR CELLS SLIGHT; HYPOCHROMASIA SLIGHT; OVALOCYTES SLIGHT; POIKILOCYTOSIS SLIGHT; POLYCHROMASIA SLIGHT; TEAR DROP CELLS SLIGHT; TOXIC VACUOLATION PRESENT
[2017-04-27] MEDS: ENOXAPARIN SODIUM INJ 40 MG/0.4 ML DISP.SYRIN SUBCUT SCH (09:46)
--- NOTE | 2017-04-27 12:53 | PDOC PROGRESS REPORT ---
Subjective Progress Note for:: 04/27/17 Subjective:: Reports that his breathing is much better today. Physical Exam Vital Signs: Temp Pulse Resp BP Pulse Ox 98.1 F 116 H 18 100/81 96 04/27/17 11:52 04/27/17 11:52 04/27/17 11:52 04/27/17 11:52 04/27/17 11:52 Intake & Output 04/26/17 04/27/17 04/28/17 06:59 06:59 06:59 Intake Total 2 618 Output Total 250 Balance -248 618 Weight 93 kg General appearance: PRESENT: no acute distress Eye exam: PRESENT: conjunctiva pink. ABSENT: scleral icterus Mouth exam: PRESENT: moist, tongue midline Neck exam: ABSENT: JVD Respiratory exam: PRESENT: clear to auscultation flex. ABSENT: rales, rhonchi, wheezes Cardiovascular exam: PRESENT: RRR. ABSENT: diastolic murmur, rubs, systolic murmur GI/Abdominal exam: PRESENT: normal bowel sounds, soft. ABSENT: distended, guarding, mass, organolmegaly, rebound, tenderness Extremities exam: ABSENT: calf tenderness, clubbing, pedal edema Neurological exam: PRESENT: alert, awake, oriented to person, oriented to place , oriented to time, oriented to situation, CN II-XII grossly intact. ABSENT: motor sensory deficit Psychiatric exam: PRESENT: appropriate affect Skin exam: PRESENT: dry, intact, warm. ABSENT: cyanosis, rash Results Laboratory Results: 04/27/17 04:32 04/27/17 04:32 04/27/17 04/27/17 04:32 04:32 WBC 13.7 H RBC 4.35 Hgb 11.4 L Hct 36.2 L MCV 83 MCH 26.3 L MCHC 31.6 L RDW 16.6 H Plt Count 293 Seg Neutrophils % Not Reportable Lymphocytes % Not Reportable Monocytes % Not Reportable Eosinophils % Not Reportable Basophils % Not Reportable Absolute Neutrophils Not Reportable Absolute Lymphocytes Not Reportable Absolute Monocytes Not Reportable Absolute Eosinophils Not Reportable Absolute Basophils Not Reportable Sodium 141.7 Potassium 3.7 Chloride 105 Carbon Dioxide 24 Anion Gap 13 BUN 21 H Creatinine 1.22 Est GFR ( Amer) > 60 Est GFR (Non-Af Amer) > 60 Glucose 183 H Calcium 8.3 L Magnesium 2.1 Impressions: Chest X-Ray 04/26/17 11:32 IMPRESSION: 1. Right lower lobe pneumonia with a small right pleural effusion. 2. Cardiomegaly without CHF. Assessment & Plan - Diagnosis (1) Pneumonia Qualifiers: Pneumonia type: due to unspecified organism Laterality: right Lung location: lower lobe of lung Qualified Code(s): J18.1 - Lobar pneumonia, unspecified organism Is this a current diagnosis for this admission?: YesPlan: Has community-acquired pneumonia probable gram-positive cocci. Will treat with Rocephin and Zithromax. Sputum and blood cultures have been obtained. (2) COPD exacerbation Is this a current diagnosis for this admission?: YesPlan: Quit smoking 4 years ago. He has a COPD exacerbation made worse with pneumonia. Will give IV Solu-Medrol, nebulizers and antibiotics. (3) Congestive heart failure Qualifiers: Congestive heart failure type: unspecified congestive heart failure type Congestive heart failure chronicity: unspecified congestive heart failure chronicity Qualified Code(s): I50.9 - Heart failure, unspecified Is this a current diagnosis for this admission?: YesPlan: Patient has no previous history of congestive heart failure however he has orthopnea, PND, weight gain and lower extremity edema. All of this is suggestive of congestive heart failure. Echocardiogram was done earlier today and we are awaiting the results - Time Time Spent with patient: 25-34 minutes - Inpatient Certification Medical Necessity: Need for IV Antibiotics - Plan Summary Plan Summary: If he continues to improve we can hopefully discharge home tomorrow.
--- NOTE | 2017-04-27 13:31 | XCELERA REPORT ---
[address] [address] Transthoracic Echocardiogram Report Name: ZEENAT MENDES JR Age: 57 yrs Gender: Male : 1960 Patient Status: Inpatient Patient Location: [id number] Study Date: 04/27/2017 08:49 AM Height: 68 in Weight: 204 lb BSA: 2.1 m2 Procedure: A complete two-dimensional transthoracic echocardiogram was performed (2D, M-mode, spectral and color flow Doppler). The study was technically difficult with many images being suboptimal in quality. Reason For Study: chf Ordering Physician: HILLARY COTTON Performed By: Laureen Ignacio Interpretation Summary The study was technically difficult with many images being suboptimal in quality. Left ventricular systolic function is severely reduced. The Ejection Fraction estimate is 30-35% Doppler measurements suggest pseudonormalized left ventricular relaxation, which is associated with grade II/IV or mild to moderate diastolic dysfunction There is borderline concentric left ventricular hypertrophy. The left ventricle is mildly dilated. There is moderate to severe global hypokinesis of the left ventricle. The right ventricular systolic function is mildly reduced. The right ventricle is mildly dilated. The right atrium is borderline dilated. The left atrium is mildly dilated. There is a moderate amount of mitral regurgitation There is no mitral valve stenosis. There is a trace amount of aortic regurgitation There is no aortic valve stenosis There is a mild amount of tricuspid regurgitation There is mild pulmonary hypertension by echo Right ventricular systolic pressure is estimated to be elevated at 30- 40mmHg. The aortic root is not well visualized but is probably normal size. The inferior vena cava appeared normal and decreased > 50% with respiration (RAP 5-10 mmHg) There is no pericardial effusion. MMode/2D Measurements \T\ Calculations RVDd: 2.8 cm LVIDd: 5.6 cm FS: -4.0 % Ao root diam: 3.0 cm IVSd: 0.97 cm LVIDs: 5.8 cm EDV(Teich): 155.0 ml LVPWd: 1.00 cmESV(Teich): 169.7 mlAo root area: 7.0 cm2 EF(Teich): -9.5 % LA dimension: 4.1 cm LVOT diam: 2.0 cm LVOT area: 3.3 cm2 Doppler Measurements \T\ Calculations MV E max andrés: MV P1/2t max andrés: Ao V2 max: LV V1 max P.3 cm/sec 95.3 cm/sec 91.7 cm/sec 1.9 mmHg MV P1/2t: 42.1 msec Ao max PG: LV V1 max: MVA(P1/2t): 5.2 cm2 3.4 mmHg 69.4 cm/sec MV dec slope: PATTI(V,D): 2.5 cm2 LV dP/dt: 662.4 cm/sec2 454.0 mmHg/s TV V2 max: PA V2 max: TR max andrés: 298.7 cm/sec 44.4 cm/sec 256.5 cm/sec TV max PG: PA max P.79 mmHg TR max P.3 mmHg 26.3 mmHg Left Ventricle The left ventricle is mildly dilated. There is borderline concentric left ventricular hypertrophy. Left ventricular systolic function is severely reduced. The Ejection Fraction estimate is 30-35%. Doppler measurements suggest pseudonormalized left ventricular relaxation, which is associated with grade II/IV or mild to moderate diastolic dysfunction. There is moderate to severe global hypokinesis of the left ventricle. Right Ventricle The right ventricle is mildly dilated. The right ventricular systolic function is mildly reduced. Atria The right atrium is borderline dilated. The left atrium is mildly dilated. Interarterial septum not well visualized and not well dopplered. Cannot comment on ASD/PFO presence. Mitral Valve The mitral valve leaflets are sclerotic and show some degree of functional abnormality. There is mild mitral annular calcification. There is no mitral valve stenosis. There is a moderate amount of mitral regurgitation. Aortic Valve The aortic valve is not well visualized secondary to technical limitations. There is no aortic valve stenosis. There is a trace amount of aortic regurgitation. Tricuspid Valve The tricuspid valve is not well visualized, but is grossly normal. There is no tricuspid stenosis. There is a mild amount of tricuspid regurgitation. There is mild pulmonary hypertension by echo. Right ventricular systolic pressure is estimated to be elevated at 30-40mmHg. Pulmonic Valve The pulmonic valve is not well visualized. Great Vessels The aortic root is not well visualized but is probably normal size. The inferior vena cava appeared normal and decreased > 50% with respiration (RAP 5-10 mmHg). Effusions There is no pericardial effusion. : HILLARY COTTON Shyamal
[2017-04-27] MEDS: CEFTRIAXONE 1 GM/D5W RTU 50 ML IV SCH (14:52)
[2017-04-27] MEDS: AZITHROMYCIN 500 MG in DEXTROSE 5%-WATER 250 ML IV SCH (15:30)
[2017-04-27] MEDS: IPRATROPIUM/ALBUTEROL 0.5-2.5 MG/3 ML AMPUL NEB PRN (19:59)
[2017-04-28 05:06] LABS: HEMATOCRIT 35.5 % (37.9-51.0); HEMOGLOBIN 11.4 g/dL (13.5-17.0); HGB HCT DIFFERENCE -1.3; MEAN CORPUSCULAR HEMOGLOBIN 26.7 pg (27.0-33.4); MEAN CORPUSCULAR VOLUME 83 fl (80-97); RED BLOOD COUNT 4.27 10^6/uL (4.35-5.55); WHITE BLOOD COUNT 18.7 10^3/uL (4.0-10.5)
[2017-04-28 05:27] LABS: ANION GAP 15 (5-19); BLOOD UREA NITROGEN 32 mg/dL (7-20); CALCIUM 8.7 mg/dL (8.4-10.2); CARBON DIOXIDE 21 mmol/L (22-30); CHLORIDE 105 mmol/L (98-107); CREATININE RESULT 1.12 mg/dL (0.52-1.25); GLUCOSE 189 mg/dL (75-110); POTASSIUM 3.6 mmol/L (3.6-5.0)
[2017-04-28 05:31] LABS: BAND NEUTROPHILS % (MANUAL) 1 % (3-5); BASOPHILS % (MANUAL) 0 % (0-2); EOSINOPHILS % (MANUAL) 0 % (0-6); LYMPHOCYTES % (MANUAL) 5 % (13-45); TOTAL CELLS COUNTED 100
[2017-04-28 05:32] LABS: OVALOCYTES SLIGHT
[2017-04-28 05:33] LABS: ANISOCYTOSIS 1+; POIKILOCYTOSIS SLIGHT
[2017-04-28] MEDS: METHYLPREDNISOLONE INJ 40 MG/1 ML SDV IV SCH ×3 (06:23→21:34)
[2017-04-28] MEDS: ENOXAPARIN SODIUM INJ 40 MG/0.4 ML DISP.SYRIN SUBCUT SCH (10:39)
[2017-04-28] MEDS: IPRATROPIUM/ALBUTEROL 0.5-2.5 MG/3 ML AMPUL NEB PRN (12:18)
[2017-04-28] MEDS: CEFTRIAXONE 1 GM/D5W RTU 50 ML IV SCH (12:36)
[2017-04-28] MEDS: AZITHROMYCIN 500 MG in DEXTROSE 5%-WATER 250 ML IV SCH (13:20)
--- NOTE | 2017-04-28 13:46 | PDOC PROGRESS REPORT ---
Subjective Progress Note for:: 04/28/17 Subjective:: Complains of wheezing this morning Physical Exam Vital Signs: Temp Pulse Resp BP Pulse Ox 97.7 F 116 H 18 114/88 H 97 04/28/17 03:16 04/28/17 12:18 04/28/17 12:18 04/28/17 03:16 04/28/17 12:18 Intake & Output 04/27/17 04/28/17 04/29/17 06:59 06:59 06:59 Intake Total 2 2163 400 Output Total 250 500 Balance -248 1663 400 Weight 93 kg 94.3 kg General appearance: PRESENT: no acute distress Eye exam: PRESENT: conjunctiva pink. ABSENT: scleral icterus Mouth exam: PRESENT: moist, tongue midline Neck exam: ABSENT: JVD Respiratory exam: PRESENT: wheezes - Scattered bilateral expiratory wheezes. ABSENT: rales, rhonchi Cardiovascular exam: PRESENT: RRR. ABSENT: diastolic murmur, rubs, systolic murmur GI/Abdominal exam: PRESENT: normal bowel sounds, soft. ABSENT: distended, guarding, mass, organolmegaly, rebound, tenderness Extremities exam: ABSENT: calf tenderness, clubbing, pedal edema Neurological exam: PRESENT: alert, awake, oriented to person, oriented to place , oriented to time, oriented to situation, CN II-XII grossly intact. ABSENT: motor sensory deficit Psychiatric exam: PRESENT: appropriate affect Skin exam: PRESENT: dry, intact, warm. ABSENT: cyanosis, rash Results Laboratory Results: 04/28/17 04:37 04/28/17 04:37 04/28/17 04/28/17 04:37 04:37 WBC 18.7 H RBC 4.27 L Hgb 11.4 L Hct 35.5 L MCV 83 MCH 26.7 L MCHC 32.0 RDW 17.0 H Plt Count 344 Seg Neutrophils % Not Reportable Lymphocytes % Not Reportable Monocytes % Not Reportable Eosinophils % Not Reportable Basophils % Not Reportable Absolute Neutrophils Not Reportable Absolute Lymphocytes Not Reportable Absolute Monocytes Not Reportable Absolute Eosinophils Not Reportable Absolute Basophils Not Reportable Sodium 141.0 Potassium 3.6 Chloride 105 Carbon Dioxide 21 L Anion Gap 15 BUN 32 H Creatinine 1.12 Est GFR ( Amer) > 60 Est GFR (Non-Af Amer) > 60 Glucose 189 H Calcium 8.7 Impressions: Chest X-Ray 04/26/17 11:32 IMPRESSION: 1. Right lower lobe pneumonia with a small right pleural effusion. 2. Cardiomegaly without CHF. Assessment & Plan - Diagnosis (1) Pneumonia Qualifiers: Pneumonia type: due to unspecified organism Laterality: right Lung location: lower lobe of lung Qualified Code(s): J18.1 - Lobar pneumonia, unspecified organism Is this a current diagnosis for this admission?: YesPlan: Has community-acquired pneumonia probable gram-positive cocci. Will treat with Rocephin and Zithromax. Sputum and blood cultures have been obtained. And blood cultures are growing out gram-positive cocci (2) COPD exacerbation Is this a current diagnosis for this admission?: YesPlan: Quit smoking 4 years ago. He has a COPD exacerbation made worse with pneumonia. Will continue IV Solu-Medrol, nebulizers and antibiotics. (3) Congestive heart failure Qualifiers: Congestive heart failure type: unspecified congestive heart failure type Congestive heart failure chronicity: unspecified congestive heart failure chronicity Qualified Code(s): I50.9 - Heart failure, unspecified Is this a current diagnosis for this admission?: YesPlan: Patient has no previous history of congestive heart failure however he has orthopnea, PND, weight gain and lower extremity edema. All of this is suggestive of congestive heart failure. Echocardiogram was done a systolic ejection fraction of 35% - Time Time Spent with patient: 25-34 minutes - Inpatient Certification Medical Necessity: Need Close Monitoring Due to Risk of Patient Decompensation
[2017-04-29 05:01] LABS: ANION GAP 13 (5-19); BLOOD UREA NITROGEN 31 mg/dL (7-20); CALCIUM 8.9 mg/dL (8.4-10.2); CARBON DIOXIDE 23 mmol/L (22-30); CHLORIDE 106 mmol/L (98-107); CREATININE RESULT 0.96 mg/dL (0.52-1.25); GLUCOSE 138 mg/dL (75-110); SODIUM 142.2 mmol/L (137-145)
[2017-04-29 05:08] LABS: HEMOGLOBIN 11.5 g/dL (13.5-17.0); HGB HCT DIFFERENCE -1.5; MEAN CORPUSCULAR HEMOGLOBIN 26.2 pg (27.0-33.4); MEAN CORPUSCULAR HGB CONC 31.9 g/dL (32.0-36.0); MEAN CORPUSCULAR VOLUME 82 fl (80-97); RED BLOOD COUNT 4.38 10^6/uL (4.35-5.55); RED CELL DISTRIBUTION WIDTH 17.2 % (11.5-14.0); WHITE BLOOD COUNT 15.7 10^3/uL (4.0-10.5)
[2017-04-29] MEDS: METHYLPREDNISOLONE INJ 40 MG/1 ML SDV IV SCH (05:11)
[2017-04-29 06:25] LABS: BASOPHILS % (MANUAL) 0 % (0-2); EOSINOPHILS % (MANUAL) 0 % (0-6); LYMPHOCYTES % (MANUAL) 4 % (13-45); TOTAL CELLS COUNTED 100
[2017-04-29 06:28] LABS: ANISOCYTOSIS 1+; OVALOCYTES 1+; POIKILOCYTOSIS 1+; TARGET CELLS 1+; TOXIC GRANULATION SLIGHT
[2017-04-29] MEDS: ENOXAPARIN SODIUM INJ 40 MG/0.4 ML DISP.SYRIN SUBCUT SCH (09:15)
[2017-04-29] MEDS ORDERED: METOPROLOL SUCCINATE 25 MG TAB.SR.24H PO SCH (10:00)
[2017-04-29 10:59] VITALS: BP 105/77
--- NOTE | 2017-04-29 11:31 | PDOC DISCHARGE SUMMARY ---
General - Admit/Disc Date/PCP Admission Date/Primary Care Provider: 04/26/17 14:16 CECE MASON MD Discharge Date: 04/29/17 - Discharge Diagnosis (1) Pneumonia Is this a current diagnosis for this admission?: Yes (2) COPD exacerbation Is this a current diagnosis for this admission?: Yes (3) Congestive heart failure Is this a current diagnosis for this admission?: YesSummary: chronic systolic congestive heart failure - Additional Information Resuscitation Status: Do Not Resuscitate Discharge Diet: Cardiac Discharge Activity: Activity As Tolerated, Balance Activity w/Rest, Weigh Daily Home Medications: Albuterol Sulfate [Proair HFA] 1 puff IH ASDIR PRN 04/26/17 Budesonide/Formoterol Fumarate [Symbicort HFA 160-4.5 mcg Inhaler 6 gm] 2 puff IH Q12 04/26/17 Guaifenesin [Mucinex] 600 mg PO DAILY 04/26/17 Tiotropium [place] [Spiriva Handihaler 18 mcg/dose (30 Dose)] 1 cap IH DAILY Cefuroxime Axetil [Ceftin 500 mg Tablet] 1 tab PO BID #14 tablet 04/29/17 Furosemide [Lasix 20 mg Tablet] 20 mg PO QAM #30 tablet 04/29/17 Metoprolol Succinate [Toprol Xl 25 mg Tab.sr] 25 mg PO DAILY #30 tab.sr.24h Prednisone 10 mg PO DAILY #39 tablet 04/29/17 History of Present Illness History of Present Illness: ZEENAT MENDES JR is a 57 year old male presents with a 5 week history of cough and shortness of breath. He had a nonproductive cough. He also over the last several weeks has had increasing weight, orthopnea, PND as well as some low -grade fevers. The patient is found to have a right lower lobe pneumonia today on chest x-ray and has an acute COPD on exam with expiratory wheezes. Denies any chest pain. He denies having any previous cardiac history although he does have a family history of cardiac disease. Hospital Course Hospital Course: 57-year-old gentleman who presented with shortness of breath as well as productive cough and wheezing consistent with an acute COPD exacerbation and pneumonia. Patient also had symptoms that were suggestive of congestive heart failure with along with orthopnea and PND. The patient had an echocardiogram that did show him to have an ejection fraction of 35%. The patient was treated for the acute COPD exacerbation and pneumonia with Rocephin and Zithromax. Patient also received IV steroids. Patient had complete resolution of his shortness of breath and did not receive any IV diuretics. [place] that his congestive heart failure most likely is more chronic in nature although he has no recollection of any cardiac history. The patient improved well enough that he was changed to p.o. antibiotics. He is sent home on a beta-evie because he has had some problems with tachycardia. He also has been started on Lasix. He is not started on an DIAMOND inhibitor yet since his beta-evie is new and will need to see how his blood pressure will tolerated. He can be started on an DIAMOND inhibitor as an outpatient if his pressure remains high enough. Physical Exam Vital Signs: Temp Pulse Resp BP Pulse Ox 97.9 F 122 H 19 105/77 98 04/29/17 10:58 04/29/17 10:58 04/29/17 10:58 04/29/17 10:58 04/29/17 10:58 Intake & Output 04/28/17 04/29/17 04/30/17 06:59 06:59 06:59 Intake Total 2163 1769 Output Total 500 Balance 1663 1769 Weight 94.3 kg 94.5 kg General appearance: PRESENT: no acute distress Eye exam: PRESENT: conjunctiva pink. ABSENT: scleral icterus Mouth exam: PRESENT: moist, tongue midline Neck exam: ABSENT: JVD Respiratory exam: PRESENT: clear to auscultation flex. ABSENT: rales, rhonchi, wheezes Cardiovascular exam: PRESENT: RRR. ABSENT: diastolic murmur, rubs, systolic murmur GI/Abdominal exam: PRESENT: normal bowel sounds, soft. ABSENT: distended, guarding, mass, organolmegaly, rebound, tenderness Extremities exam: ABSENT: calf tenderness, clubbing, pedal edema Neurological exam: PRESENT: alert, awake, oriented to person, oriented to place , oriented to time, oriented to situation, CN II-XII grossly intact. ABSENT: motor sensory deficit Psychiatric exam: PRESENT: appropriate affect Skin exam: PRESENT: dry, intact, warm. ABSENT: cyanosis, rash Results Laboratory Results: 04/29/17 03:56 04/29/17 03:56 04/29/17 04/29/17 03:56 03:56 WBC 15.7 H RBC 4.38 Hgb 11.5 L Hct 36.0 L MCV 82 MCH 26.2 L MCHC 31.9 L RDW 17.2 H Plt Count 384 Seg Neutrophils % Not Reportable Lymphocytes % Not Reportable Monocytes % Not Reportable Eosinophils % Not Reportable Basophils % Not Reportable Absolute Neutrophils Not Reportable Absolute Lymphocytes Not Reportable Absolute Monocytes Not Reportable Absolute Eosinophils Not Reportable Absolute Basophils Not Reportable Sodium 142.2 Potassium 4.0 Chloride 106 Carbon Dioxide 23 Anion Gap 13 BUN 31 H Creatinine 0.96 Est GFR ( Amer) > 60 Est GFR (Non-Af Amer) > 60 Glucose 138 H Calcium 8.9 Impressions: Chest X-Ray 04/26/17 11:32 IMPRESSION: 1. Right lower lobe pneumonia with a small right pleural effusion. 2. Cardiomegaly without CHF. Qualifiers PATEINT BEING DISCHARGED WITH ANY OF THE FOLLOWING DIAGNOSIS?: Heart Failure HF Pt being discharged on ACEI for LVEF less than 40%?: No Reason(s) for not prescribing ACEI:: Procedure Contraindicated HF Pt being discharged on ARBS for LVEF less than 40%?: No Reason(s) for not prescribing ARBS:: Procedure Contraindicated HF Pt discharged on evidence-based Beta Evie:: Yes Plan Discharge Plan: Patient is discharged home. Will follow up with primary care in 2 weeks. Need to follow-up with cardiology in 1-2 weeks Time Spent: Greater than 30 Minutes
== END 2017-04-29 11:32 | disposition home or self-care (01) | DRG 190 ==
LOC: ER 11:23 → UNDOADMIN 13:45 → EH 13:45 → 3W 22:22
PROVIDERS: ADMIT Internal Medicine; ATTEND Internal Medicine
DX: J44.0 Chronic obstructive pulmonary disease with (acute) lower respiratory infection (principal); J18.9 Pneumonia, unspecified organism; I50.32 Chronic diastolic (congestive) heart failure; J44.1 Chronic obstructive pulmonary disease with (acute) exacerbation; Z66 Do not resuscitate; Z82.49 Family history of ischemic heart disease and other diseases of the circulatory system; Z83.3 Family history of diabetes mellitus; Z87.891 Personal history of nicotine dependence; Z80.8 Family history of malignant neoplasm of other organs or systems
CPT/HCPCS: 36415; 71020; 80048; 80053; 81001; 82803; 83605; 83690; 83735; 83880; 85025; 85610; 87040; 87070; 87077; 87086; 87186; 87205; 93005; 93010; 93306; 94640; 96360; 99291; J0456; J0696; J1650; J1940; J2920; J7060; J7620

== ENCOUNTER 2017-05-03 09:22 | Inpatient (IN) | payer MEDICARE, MEDICAID ==
[2017-05-03] MEDS ORDERED: PREDNISONE 20 MG TABLET PO ONE (10:16)
[2017-05-03] MEDS ORDERED: IPRATROPIUM/ALBUTEROL 0.5-2.5 MG/3 ML AMPUL NEB ONE (10:16)
--- NOTE | 2017-05-03 10:18 | ER Document Report ---
ED Medical Screen (RME) - General Chief Complaint: Shortness Of Breath Stated Complaint: SHORTNESS OF BREATH Time Seen by Provider: 05/03/17 10:16 Notes: Patient is a 57-year-old male, PMHx CHF, COPD, presents with increasing shortness of breath over the past 4 days since he was discharged from the the hospital after a COPD exacerbation. He is also noticing increased bilateral leg swelling since then. He took 20 mg prednisone and 20 mg Lasix this morning. Shortness of breath is worse on exertion. Patient with mild intermittent chest tightness also during exertion. Denies cough, fevers, hemoptysis, calf tenderness, numbness, tingling, back pain, nausea or vomiting. PE: Tachypneic, mild wheezing, tachycardic, 2+ B/L pitting edema in calves ( limited leg exam in Triage due to tight jeans) I have greeted and performed a rapid initial assessment of this patient. A comprehensive ED assessment and evaluation of the patient, analysis of test results and completion of the medical decision making process will be conducted by additional ED providers. TRAVEL OUTSIDE OF THE [place] IN LAST 30 DAYS: No - Related Data Allergies/Adverse Reactions: Penicillins Allergy (Verified 05/03/17 09:29) Past Medical History Pulmonary Medical History: Reports: Hx COPD Denies: Hx Tuberculosis Renal/ Medical History: Denies: Hx Peritoneal Dialysis Past Surgical History: Reports: Hx Tonsillectomy - Immunizations Hx Diphtheria, Pertussis, Tetanus Vaccination: No - unk Physical Exam - Vital signs Vitals: Temp Pulse Resp BP Pulse Ox 97.9 F 109 H 30 H 118/90 H 98 05/03/17 09:29 05/03/17 09:29 05/03/17 09:29 05/03/17 09:29 05/03/17 09:29 Course - Vital Signs Vital signs: Temp Pulse Resp BP Pulse Ox 97.9 F 109 H 30 H 118/90 H 98 05/03/17 09:29 05/03/17 09:29 05/03/17 09:29 05/03/17 09:29 05/03/17 09:29
--- NOTE | 2017-05-03 11:04 | RADIOLOGY REPORT (SQ) ---
EXAM DESCRIPTION: CHEST PA/LAT COMPLETED DATE/TIME: 05/03/2017 10:53 am REASON FOR STUDY: SOB COMPARISON: 04/26/2017 EXAM PARAMETERS: NUMBER OF VIEWS: two views TECHNIQUE: Digital Frontal and Lateral radiographic views of the chest acquired. RADIATION DOSE: NA LIMITATIONS: none FINDINGS: LUNGS AND PLEURA: There is a slightly improved appearance to the right base with slightly improved aeration. There is a dense infiltrate in the right upper lobe. The left lung is clear. MEDIASTINUM AND HILAR STRUCTURES: No masses or contour abnormalities. HEART AND VASCULAR STRUCTURES: Heart size is borderline. No evidence of shanthi CHF. BONES: No acute findings. HARDWARE: None in the chest. OTHER: No other significant finding. IMPRESSION: Right upper lobe pneumonia and residual right lower lobe pneumonia with apparent small r ight pleural effusion. TECHNICAL DOCUMENTATION: JOB ID: [id number] [employer]- All Rights Reserved
--- NOTE | 2017-05-03 11:16 | ER Document Report ---
ED General - General Chief Complaint: Shortness Of Breath Stated Complaint: SHORTNESS OF BREATH Time Seen by Provider: 05/03/17 10:16 TRAVEL OUTSIDE OF THE [place] IN LAST 30 DAYS: No - HPI Notes: Patient is a 57-year-old male with a history of COPD CHF who presents to the ED complaining of increased shortness of breath, chest heaviness, and lower extremity swelling along with dyspnea on exertion since his discharge from the hospital 4 days ago. Patient was admitted 1 week ago for right lower lobe pneumonia and acute exacerbation COPD. While in the hospital he was found to have an echocardiogram with 35% ejection fraction. He was given Rocephin and Zithromax along with IV steroids. He was discharged with Toprol 25 mg, Lasix 20 mg, cefuroxime 500 mg twice daily 1 week, and a prednisone taper. Yesterday he picked up scripts for Ventolin, Symbicort, Spiriva. He also received a prescription for ipratropium bromide via nebulizer. He was not started on DIAMOND inhibitor as they wanted a gradual addition pending his blood pressure over the next couple weeks. He was scheduled to see his primary care doctor today ([facility]) but came to the ED due to his worsening shortness of breath and lower extremity swelling. Patient states that he has corresponding PND, cough, and orthopnea. Denies any fever, nasal congestion/ discharge, sore throat, headaches, chest pain, syncope, palpitations, abdominal pain, nausea, vomiting, diarrhea, dysuria, hematuria, urinary retention, rash. - Related Data Allergies/Adverse Reactions: Penicillins Allergy (Verified 05/03/17 09:29) Past Medical History - Social History Smoking Status: Unknown if Ever Smoked Family History: CAD, DM, Malignancy Patient has suicidal ideation: No Patient has homicidal ideation: No Pulmonary Medical History: Reports: Hx COPD Denies: Hx Tuberculosis Renal/ Medical History: Denies: Hx Peritoneal Dialysis Past Surgical History: Reports: Hx Tonsillectomy - Immunizations Hx Diphtheria, Pertussis, Tetanus Vaccination: No - unk Review of Systems - Review of Systems Notes: REVIEW OF SYSTEMS: CONSTITUTIONAL : Denies fever, chills, or sweats. EENT: Denies eye, ear, throat, or mouth pain or symptoms. Denies nasal or sinus congestion or discharge. Denies throat, tongue, or mouth swelling or difficulty swallowing. CARDIOVASCULAR: see hpi RESPIRATORY: see hpi GASTROINTESTINAL: Denies abdominal pain or distention. Denies nausea, vomiting , or diarrhea. Denies blood in vomitus, stools, or per rectum. Denies black, tarry stools. Denies constipation. GENITOURINARY: Denies difficulty urinating, painful urination, burning, frequency, blood in urine, or discharge. MUSCULOSKELETAL: Denies back or neck pain or stiffness. Denies joint pain or swelling. SKIN: Denies rash, lesions or sores. NEUROLOGICAL: Denies confusion or altered mental status. Denies passing out or loss of consciousness. Denies dizziness or lightheadedness. Denies headache. Denies weakness or paralysis or loss of use of either side. Denies problems with gait or speech. Denies sensory loss, numbness, or tingling. Denies seizures. ALL OTHER SYSTEMS REVIEWED AND NEGATIVE. Dictation was performed using [employer] voice recognition software Physical Exam - Vital signs Vitals: Temp Pulse Resp BP Pulse Ox 97.9 F 109 H 30 H 118/90 H 98 05/03/17 09:29 05/03/17 09:29 05/03/17 09:29 05/03/17 09:29 05/03/17 09:29 Notes: PHYSICAL EXAMINATION: GENERAL: Well-appearing, well-nourished and in mild-mod respiratory distress. HEAD: Atraumatic, normocephalic. EYES: Pupils equal round and reactive to light, extraocular movements intact, sclera anicteric, conjunctiva are normal. ENT: EAC clear b/l. TM's intact b/l without erythema, fluid, or perforation. Nares patent and without discharge. oropharynx clear without exudates. No tonsilar hypertrophy or erythema. Moist mucous membranes. No sinus tenderness. NECK: Normal range of motion, supple without lymphadenopathy. No rigidity/ meningismus. LUNGS: Rhonchi b/l with min. wheezes throughout. Short breaths, 4-5 words at a time. Tachypneic. HEART: Tachycardic, regular rhythm without obvious murmurs, rubs, gallops. ABDOMEN: Soft, nontender, nondistended abdomen. No guarding, no rebound. No masses appreciated. Normal bowel sounds present. No CVA tenderness bilaterally. Musculoskeletal: FROM to passive/active. Strength 5+/5. Extremities: No cyanosis, clubbing. 2-3+ periph edema to LE's b/l prox to knees. Capillary refill less than 3 seconds. NEUROLOGICAL: Cranial nerves grossly intact. Normal speech, normal gait. Normal sensory, motor exams PSYCH: Normal mood, normal affect. SKIN: Warm, Dry, normal turgor, no rashes or lesions noted. Course - Re-evaluation Re-evalutation: 05/03/17 13:39 Pt is an afebrile, well-hydrated, 57yo male with h/o COPD, CHF, recent pneumonia , who presents with, via CXR, new onset RUL pneumonia with residual RLL with continued small rt pleural effusion. Pt is tachycardic, tachypneic, and in mild -mod respiratory distress. Pulse ox is 100% on 2L via NC. Duoneb provided today. He was given a total of 60mg Prednisone since this morning with 20mg prior to arrival. He also took Lasix 20mg this morning. Pt reports improvement in breathing s/p Duoneb, but continues to be tachypneic. lasix 20mg IV given today. CBC showed 17.1 WBC with left shift. Lactic acid 2.7H. BNP increased [place] March 2017 [place] 6260 [place] [address]. Vancomycin 1g given IV along with Levaquin 750mg PO. Reviewed case with Dr. Carmona who is in agreement and plan to admit. Reviewed case with Dr. Escamilla (Hospitalist) who accepted patient. Pt in agreement with being admitted. Low suspicion for ACS, Pneumothorax, pericarditis, PE, or dissection based on work up today. - Vital Signs Vital signs: Temp Pulse Resp BP Pulse Ox 97.9 F 109 H 34 H 135/115 H 100 05/03/17 09:29 05/03/17 09:29 05/03/17 12:01 05/03/17 12:01 05/03/17 12:01 - Laboratory Result Diagrams: 05/03/17 11:29 05/03/17 11:29 Laboratory results interpreted by me: 05/03/17 05/03/17 05/03/17 11:29 11:29 11:29 WBC 17.1 H Hgb 12.7 L MCH 25.8 L MCHC 30.9 L RDW 17.5 H Plt Count 588 H Seg Neuts % (Manual) 87 H Lymphocytes % (Manual) 6 L Abs Neuts (Manual) 14.9 H VBG pH BUN 31 H Glucose 176 H Lactic Acid Direct Bilirubin 0.7 H ALT 99 H Alkaline Phosphatase 213 H NT-Pro-B Natriuret Pep 75694 H Albumin 3.2 L Urine Protein Urine Blood 05/03/17 05/03/17 05/03/17 11:29 11:29 12:42 WBC Hgb MCH MCHC RDW Plt Count Seg Neuts % (Manual) Lymphocytes % (Manual) Abs Neuts (Manual) VBG pH 7.49 H BUN Glucose Lactic Acid 2.7 H Direct Bilirubin ALT Alkaline Phosphatase NT-Pro-B Natriuret Pep Albumin Urine Protein 100 H Urine Blood SMALL H Discharge - Discharge Clinical Impression: Pneumonia Qualifiers: Pneumonia type: due to unspecified organism Laterality: right Lung location: lower lobe of lung Qualified Code(s): J18.1 - Lobar pneumonia, unspecified organism Congestive heart failure Qualifiers: Congestive heart failure type: unspecified congestive heart failure type Congestive heart failure chronicity: unspecified congestive heart failure chronicity Qualified Code(s): I50.9 - Heart failure, unspecified COPD (chronic obstructive pulmonary disease) Qualifiers: COPD type: unspecified COPD Qualified Code(s): J44.9 - Chronic obstructive pulmonary disease, unspecified Admitting Provider: Hospitalist - Dr. Escamilla Unit Admitted: IMCU Referrals: SULTANA SOLOMON DO [Primary Care Provider] - Follow up as needed
[2017-05-03 11:57] LABS: HEMATOCRIT 41.2 % (37.9-51.0); HEMOGLOBIN 12.7 g/dL (13.5-17.0); HGB HCT DIFFERENCE -3.1; MEAN CORPUSCULAR HEMOGLOBIN 25.8 pg (27.0-33.4); MEAN CORPUSCULAR HGB CONC 30.9 g/dL (32.0-36.0); MEAN CORPUSCULAR VOLUME 84 fl (80-97); RED BLOOD COUNT 4.92 10^6/uL (4.35-5.55); RED CELL DISTRIBUTION WIDTH 17.5 % (11.5-14.0); WHITE BLOOD COUNT 17.1 10^3/uL (4.0-10.5)
[2017-05-03 11:58] LABS: VENOUS BLOOD BASE EXCESS 3.4 mmol/L; VENOUS BLOOD HCO3 26.5 mmol/L (20-32); VENOUS BLOOD PCO2 35.7 mmHg (35-63); VENOUS BLOOD PH 7.49 (7.30-7.42)
[2017-05-03 12:20] LABS: ALANINE AMINOTRANSFERASE 99 U/L (21-72); ALBUMIN 3.2 g/dL (3.5-5.0); ALKALINE PHOSPHATASE 213 U/L (38-126); ANION GAP 15 (5-19); ASPARTATE AMINO TRANSFERASE 50 U/L (17-59); BILIRUBIN,DIRECT 0.7 mg/dL (0.0-0.4); BILIRUBIN,TOTAL 1.2 mg/dL (0.2-1.3); BLOOD UREA NITROGEN 31 mg/dL (7-20); CALCIUM 9.2 mg/dL (8.4-10.2); CARBON DIOXIDE 25 mmol/L (22-30); CHLORIDE 103 mmol/L (98-107); CREATINE KINASE 74 U/L (55-170); CREATININE RESULT 0.93 mg/dL (0.52-1.25); GLUCOSE 176 mg/dL (75-110); POTASSIUM 4.7 mmol/L (3.6-5.0); SODIUM 143.3 mmol/L (137-145); TOTAL PROTEIN 6.8 g/dL (6.3-8.2)
[2017-05-03 12:26] LABS: BASOPHILS % (MANUAL) 0 % (0-2); EOSINOPHILS % (MANUAL) 0 % (0-6); LYMPHOCYTES % (MANUAL) 6 % (13-45); NUCLEATED RED BLOOD CELLS 3 /100 WBC (0); TOTAL CELLS COUNTED 100
[2017-05-03 12:27] LABS: ANISOCYTOSIS 1+; OVALOCYTES 1+; POIKILOCYTOSIS 1+; POLYCHROMASIA 1+; TARGET CELLS 1+
[2017-05-03] MEDS ORDERED: FUROSEMIDE INJ/PF 20 MG/2 ML SDV IV ONE (12:30)
[2017-05-03 12:31] LABS: TROPONIN I 0.025 ng/mL
[2017-05-03 13:26] LABS: APPEARANCE,URINE CLOUDY; BILIRUBIN,URINE NEGATIVE (NEGATIVE); GLUCOSE, URINE NEGATIVE (NEGATIVE); KETONES,URINE NEGATIVE (NEGATIVE); LEUKOCYTE ESTERASE,URINE NEGATIVE (NEGATIVE); NITRITE,URINE NEGATIVE (NEGATIVE); PROTEIN,URINE 100 mg/dL (NEGATIVE); URIC ACID CRYSTALS,URINE FEW /HPF; URINE SPECIFIC GRAVITY 1.019; UROBILINOGEN,URINE NEGATIVE mg/dL (<2.0)
[2017-05-03] MEDS ORDERED: LEVOFLOXACIN 750 MG TABLET PO ONE (13:30)
[2017-05-03] MEDS ORDERED: VANCOMYCIN HCL INJ 1000 MG VIAL IV ONE (13:30)
[2017-05-03] MEDS ORDERED: ONDANSETRON HCL INJ/PF 4 MG/2 ML SDV IV PRN (14:24)
[2017-05-03] MEDS ORDERED: ACETAMINOPHEN 325 MG TABLET PO PRN (14:24)
--- NOTE | 2017-05-03 14:45 | PDOC H&P ---
History of Present Illness Admission Date/PCP: 05/03/17 13:57 SULTANA SOLOMON DO Patient complains of: Shortness of breath History of Present Illness: ZEENAT MENDES JR is a 57 year old male, with history of CHF systolic dysfunction with ejection fraction of 30%, recently discharged from the hospital 4 days ago for a pneumonia and COPD exacerbation. Patient was discharged home on prednisone and antibiotic orally. Was doing fine up until about the night after discharge when the patient reports that the air conditioning at home was too cold, patient started to develop chills with associated shortness of breath and increasing cough and chest congestion. There is likewise associated wheezing. There is no chest pain or definite fever. No nausea or vomiting or sweating. Symptoms lingered on until earlier today symptoms seems to get worse together with increasing lower extremity edema. There is associated paroxysmal nocturnal dyspnea and the patient is unable to sleep well last night. He reports that he only slept for 3 hours. He went to the emergency room for evaluation. Chest x-ray shows infiltrate on the upper lobe. Patient was given antibiotics in the emergency room. Brain natruretic peptide was also noted to be high and 20 mg of intravenous Lasix was administered. Patient was then referred for admission. Past Medical History Past Medical History: Medication reconciliation pending verification from the patient's pharmacist Cardiac Medical History: Reports: Congestive Heart Failure Pulmonary Medical History: Reports: Chronic Obstructive Pulmonary Disease (COPD) Denies: Tuberculosis Past Surgical History Past Surgical History: Reports: Tonsillectomy Social History Information Source: Patient Smoking Status: Former Smoker Frequency of Alcohol Use: None Hx Recreational Drug Use: No Drugs: None Hx Prescription Drug Abuse: No Family History Family History: CAD, DM, Malignancy Parental Family History Reviewed: Yes Children Family History Reviewed: Yes Sibling(s) Family History Reviewed.: Yes Medication/Allergy Home Medications: Albuterol Sulfate [Proair HFA] 1 puff IH ASDIR PRN 04/26/17 Budesonide/Formoterol Fumarate [Symbicort HFA 160-4.5 mcg Inhaler 6 gm] 2 puff IH Q12 04/26/17 Guaifenesin [Mucinex] 600 mg PO DAILY 04/26/17 Tiotropium [place] [Spiriva Handihaler 18 mcg/dose (30 Dose)] 1 cap IH DAILY Cefuroxime Axetil [Ceftin 500 mg Tablet] 1 tab PO BID #14 tablet 04/29/17 Furosemide [Lasix 20 mg Tablet] 20 mg PO QAM #30 tablet 04/29/17 Metoprolol Succinate [Toprol Xl 25 mg Tab.sr] 25 mg PO DAILY #30 tab.sr.24h Prednisone 10 mg PO DAILY #39 tablet 04/29/17 Allergies/Adverse Reactions: Penicillins Allergy (Verified 05/03/17 09:29) Review of Systems Constitutional: PRESENT: chills, weight gain - Unquantified. ABSENT: fever(s), headache(s), night sweats, weight loss Eyes: ABSENT: visual disturbances Ears: ABSENT: hearing changes Nose, Mouth, and Throat: ABSENT: mouth pain, sore throat Cardiovascular: PRESENT: dyspnea on exertion, edema, orthropnea. ABSENT: chest pain, palpitations Respiratory: PRESENT: cough, dyspnea, sputum - [place]. ABSENT: hemoptysis Gastrointestinal: ABSENT: abdominal pain, constipation, diarrhea, hematemesis, hematochezia, melena, nausea, vomiting Genitourinary: ABSENT: difficulty urinating, dysuria, hematuria Musculoskeletal: ABSENT: joint swelling Integumentary: ABSENT: pruritus, rash, wounds Neurological: ABSENT: abnormal gait, abnormal speech, confusion, dizziness, focal weakness, syncope Psychiatric: ABSENT: anxiety, depression, homidical ideation, suicidal ideation Endocrine: ABSENT: cold intolerance, heat intolerance, polydipsia, polyuria Hematologic/Lymphatic: ABSENT: easy bleeding, easy bruising Physical Exam Vital Signs: Temp Pulse Resp BP Pulse Ox 97.9 F 109 H 16 124/112 H 96 05/03/17 09:29 05/03/17 09:29 05/03/17 14:01 05/03/17 14:01 05/03/17 14:01 General appearance: PRESENT: no acute distress, obese, other - On nasal cannula oxygen, speaks in complete sentences with minimal interruption Head exam: PRESENT: atraumatic, normocephalic Eye exam: PRESENT: conjunctiva pink, EOMI, PERRLA. ABSENT: scleral icterus Ear exam: PRESENT: normal external ear exam. ABSENT: drainage Mouth exam: PRESENT: moist, neck supple, tongue midline Throat exam: ABSENT: post pharyngeal erythema, tonsillar erythema Neck exam: PRESENT: JVD. ABSENT: carotid bruit, lymphadenopathy, thyromegaly Respiratory exam: PRESENT: rales - Lower lung funk bilateral more on the right. ABSENT: rhonchi, wheezes Cardiovascular exam: PRESENT: RRR, +S1, +S2. ABSENT: diastolic murmur, gallop, rubs, systolic murmur Pulses: PRESENT: normal dorsalis pedis pul Vascular exam: PRESENT: normal capillary refill GI/Abdominal exam: PRESENT: normal bowel sounds, soft. ABSENT: distended, guarding, mass, organolmegaly, rebound, tenderness Rectal exam: PRESENT: deferred Extremities exam: PRESENT: +2 edema. ABSENT: calf tenderness, clubbing Neurological exam: PRESENT: alert, awake, oriented to person, oriented to place , oriented to time, oriented to situation, CN II-XII grossly intact. ABSENT: motor sensory deficit Psychiatric exam: PRESENT: appropriate affect, normal mood. ABSENT: homicidal ideation, suicidal ideation Skin exam: PRESENT: dry, intact, warm. ABSENT: cyanosis, rash Results Impressions: Chest X-Ray 05/03/17 10:01 IMPRESSION: Right upper lobe pneumonia and residual right lower lobe pneumonia with apparent small right pleural effusion. Assessment & Plan - Diagnosis (1) Congestive heart failure Qualifiers: Congestive heart failure type: systolic Congestive heart failure chronicity: acute on chronic Qualified Code(s): I50.23 - Acute on chronic systolic (congestive) heart failure Is this a current diagnosis for this admission?: Yes (2) COPD (chronic obstructive pulmonary disease) Qualifiers: COPD type: unspecified COPD Qualified Code(s): J44.9 - Chronic obstructive pulmonary disease, unspecified Is this a current diagnosis for this admission?: Yes (3) Pneumonia Qualifiers: Pneumonia type: due to unspecified organism Laterality: right Lung location: lower lobe of lung Qualified Code(s): J18.1 - Lobar pneumonia, unspecified organism Is this a current diagnosis for this admission?: Yes (4) Elevated lactic acid level Is this a current diagnosis for this admission?: Yes (5) Abnormal liver function test Is this a current diagnosis for this admission?: Yes - Time Time Spent: 50 to 70 Minutes - Inpatient Certification Based on my medical assessment, after consideration of the patient's comorbidities, presenting symptoms, or acuity I expect that the services needed warrant INPATIENT care.: Yes I certify that my determination is in accordance with my understanding of Medicare's requirements for reasonable and necessary INPATIENT services [42 CFR 412.3e].: Yes Medical Necessity: Significant Comorbidiites Make Outpatient Treatment Too Risky , Need Close Monitoring Due to Risk of Patient Decompensation, Need For Continuous Telemetry Monitoring, Risk of Complication if Not Cared For in Hospital, Risk of Diagnosis Which Will Require Inpatient Eval/Care/Monitoring Post Hospital Care: D/C Food Service Coordinator Documentation - Plan Summary Plan Summary: The patient will be admitted to [facility]. We will monitor input and output as well as electrolytes. In the meantime I will continue the patient's steroids and antibiotic. We will recheck lactic acid level in the morning. In the meantime I think the patient has heart failure more than increasing pneumonia. We will begin intravenous diuretic with Lasix with addition of Zaroxolyn. He already had a recent echocardiogram showing an ejection fraction of 30%. I will begin low-dose DIAMOND inhibitor and continue beta-quirino. DVT prophylaxis with Lovenox will be placed. Further testing depends on the initial evaluations outlined above.
[2017-05-03] MEDS ORDERED: ENOXAPARIN SODIUM INJ 40 MG/0.4 ML DISP.SYRIN SUBCUT ONE ×2 (15:00→19:00)
[2017-05-03 15:44] LABS: THYROID STIMULATING HORMONE 0.47 uIU/mL (0.47-4.68)
[2017-05-03] MEDS: FUROSEMIDE INJ/PF 40 MG/4 ML SDV IV SCH (18:05)
[2017-05-03] MEDS: METOLAZONE 2.5 MG TABLET PO SCH (18:05)
[2017-05-03 18:53] LABS: CREATINE KINASE MB 0.82 ng/mL (<4.55); TROPONIN I 0.026 ng/mL
--- NOTE | 2017-05-03 21:21 | EKG REPORT ---
SEVERITY:- ABNORMAL ECG - SINUS TACHYCARDIA LEFT ATRIAL ABNORMALITY BORDERLINE LEFT AXIS DEVIATION CONSIDER ANTEROSEPTAL INFARCT NONSPECIFIC T ABNORMALITIES, LATERAL LEADS BORDERLINE PROLONGED QT INTERVAL : Confirmed by: Argelia Dodge 03-May-2017 21:21:02
[2017-05-03] MEDS: BUDESONIDE/FORMOTEROL 160-4.5 MCG 60 PUFF/6 GM MDI IH SCH (22:00)
[2017-05-04 00:12] LABS: CREATINE KINASE MB 1.01 ng/mL (<4.55); TROPONIN I 0.03 ng/mL
[2017-05-04] MEDS: FUROSEMIDE INJ/PF 40 MG/4 ML SDV IV SCH ×2 (05:54→18:44)
[2017-05-04] MEDS: METOLAZONE 2.5 MG TABLET PO SCH ×2 (05:54→18:44)
[2017-05-04] MEDS: LANSOPRAZOLE 30 MG TAB.RAP.DR PO SCH (05:54)
[2017-05-04 05:58] LABS: ANION GAP 12 (5-19); BLOOD UREA NITROGEN 31 mg/dL (7-20); CALCIUM 8.7 mg/dL (8.4-10.2); CARBON DIOXIDE 26 mmol/L (22-30); CHLORIDE 103 mmol/L (98-107); CREATINE KINASE 41 U/L (55-170); CREATININE RESULT 0.91 mg/dL (0.52-1.25); GLUCOSE 164 mg/dL (75-110); POTASSIUM 4.1 mmol/L (3.6-5.0)
[2017-05-04 05:59] LABS: ABSOLUTE LYMPHOCYTES (AUTO) 1.1 10^3/uL (0.5-4.7); ABSOLUTE MONOCYTES (AUTO) 1.3 10^3/uL (0.1-1.4); ABSOLUTE NEUT (AUTO) 16.2 10^3/uL (1.7-8.2); BASOPHILS % (AUTO) 0.1 % (0-2); EOSINOPHILS % (AUTO) 0.1 % (0-6); HEMATOCRIT 37.1 % (37.9-51.0); HEMOGLOBIN 11.9 g/dL (13.5-17.0); HGB HCT DIFFERENCE -1.4; LYMPHOCYTES % (AUTO) 6.1 % (13-45); MEAN CORPUSCULAR HEMOGLOBIN 26.3 pg (27.0-33.4); MEAN CORPUSCULAR HGB CONC 32.2 g/dL (32.0-36.0); MEAN CORPUSCULAR VOLUME 82 fl (80-97); MONOCYTES % (AUTO) 6.9 % (3-13); RED BLOOD COUNT 4.54 10^6/uL (4.35-5.55); RED CELL DISTRIBUTION WIDTH 17.8 % (11.5-14.0); SEGMENTED NEUTROPHILS % (AUTO) 86.8 % (42-78)
[2017-05-04 06:05] LABS: WHITE BLOOD COUNT 18.7 10^3/uL (4.0-10.5)
[2017-05-04 06:10] LABS: CREATINE KINASE MB 0.99 ng/mL (<4.55); TROPONIN I 0.032 ng/mL
[2017-05-04] MEDS ORDERED: METOPROLOL SUCCINATE 25 MG TAB.SR.24H PO SCH (10:00)
[2017-05-04] MEDS: DOCUSATE SODIUM 100 MG CAPSULE PO SCH (10:07)
[2017-05-04] MEDS: LISINOPRIL 5 MG TABLET PO SCH (10:07)
[2017-05-04] MEDS: PREDNISONE 20 MG TABLET PO SCH (10:08)
[2017-05-04] MEDS: ASPIRIN 81 MG TABLET, ENT COATED PO SCH (10:08)
[2017-05-04] MEDS: LEVOFLOXACIN 750 MG TABLET PO SCH (10:09)
[2017-05-04] MEDS: BUDESONIDE/FORMOTEROL 160-4.5 MCG 60 PUFF/6 GM MDI IH SCH ×2 (10:11→23:08)
[2017-05-04] MEDS: TIOTROPIUM BROMIDE DPI 5 CAP/KIT (18 MCG/CAP) IH SCH (10:11)
[2017-05-04] MEDS: ENOXAPARIN SODIUM INJ 40 MG/0.4 ML DISP.SYRIN SUBCUT SCH (10:11)
--- NOTE | 2017-05-04 12:33 | PDOC PROGRESS REPORT ---
Subjective Progress Note for:: 05/04/17 Subjective:: Feeling much better this morning. No paroxysmal nocturnal dyspnea nor orthopnea. Minimal coughing. No chest pain, nausea or vomiting, chills or fever. Denies any diarrhea. Denies any pleurisy. Physical Exam Vital Signs: Temp Pulse Resp BP Pulse Ox 98.1 F 107 H 16 128/86 H 97 05/04/17 11:44 05/04/17 11:44 05/04/17 11:44 05/04/17 11:44 05/04/17 11:44 Pulse Oximeter Continuous Start: 05/03/17 14: 25 Freq: RTQ4 Status: Active Document 05/04/17 08:48 JDR (Rec: 05/04/17 08:48 [email or web address] [email or web address]) Pulse Oximetry Assessment Oxygen Saturation (92-100) 95 Oxygen Flow Rate (L/min) 2 Oxygen Delivery Method Nasal Cannula Equipment Usage Equipment in Use Continuous SpO2 Machine # 7 Intake & Output 05/03/17 05/04/17 05/05/17 06:59 06:59 06:59 Intake Total 753 Output Total 1750 Balance -997 Weight 92.7 kg General appearance: PRESENT: no acute distress, cooperative Head exam: PRESENT: normocephalic Eye exam: PRESENT: EOMI Mouth exam: PRESENT: moist, neck supple Neck exam: ABSENT: JVD Respiratory exam: PRESENT: clear to auscultation flex - Anteriorly, rales - Posteriorly in the lower lung funk. ABSENT: rhonchi, wheezes Cardiovascular exam: PRESENT: RRR. ABSENT: gallop GI/Abdominal exam: PRESENT: soft. ABSENT: distended, tenderness Extremities exam: PRESENT: other - Trace edema Neurological exam: PRESENT: alert, awake, oriented to situation Skin exam: PRESENT: dry, warm. ABSENT: cyanosis Results Laboratory Results: 05/04/17 05:32 05/04/17 05:32 05/04/17 05/04/17 05/04/17 05:32 05:32 05:32 WBC 18.7 H RBC 4.54 Hgb 11.9 L Hct 37.1 L MCV 82 MCH 26.3 L MCHC 32.2 RDW 17.8 H Plt Count 634 H Seg Neutrophils % 86.8 H Lymphocytes % 6.1 L Monocytes % 6.9 Eosinophils % 0.1 Basophils % 0.1 Absolute Neutrophils 16.2 H Absolute Lymphocytes 1.1 Absolute Monocytes 1.3 Absolute Eosinophils 0.0 Absolute Basophils 0.0 Sodium 141.0 Potassium 4.1 Chloride 103 Carbon Dioxide 26 Anion Gap 12 BUN 31 H Creatinine 0.91 Est GFR ( Amer) > 60 Est GFR (Non-Af Amer) > 60 Glucose 164 H Lactic Acid 1.6 Calcium 8.7 05/03/17 05/03/17 05/03/17 17:28 17:28 23:37 Creatine Kinase 58 48 L CK-MB (CK-2) 0.82 Troponin I 0.026 05/03/17 05/04/17 05/04/17 23:37 05:32 05:32 Creatine Kinase 41 L CK-MB (CK-2) 1.01 0.99 Troponin I 0.030 0.032 Impressions: Chest X-Ray 05/03/17 10:01 IMPRESSION: Right upper lobe pneumonia and residual right lower lobe pneumonia with apparent small right pleural effusion. Assessment & Plan - Diagnosis (1) Congestive heart failure Qualifiers: Congestive heart failure type: systolic Congestive heart failure chronicity: acute on chronic Qualified Code(s): I50.23 - Acute on chronic systolic (congestive) heart failure Is this a current diagnosis for this admission?: Yes (2) COPD (chronic obstructive pulmonary disease) Qualifiers: COPD type: unspecified COPD Qualified Code(s): J44.9 - Chronic obstructive pulmonary disease, unspecified Is this a current diagnosis for this admission?: Yes (3) Pneumonia Qualifiers: Pneumonia type: due to unspecified organism Laterality: right Lung location: lower lobe of lung Qualified Code(s): J18.1 - Lobar pneumonia, unspecified organism Is this a current diagnosis for this admission?: Yes (4) Elevated lactic acid level Is this a current diagnosis for this admission?: Yes (5) Abnormal liver function test Is this a current diagnosis for this admission?: Yes - Time Time Spent with patient: 25-34 minutes - Plan Summary Plan Summary: We are going to repeat chest x-ray in the morning. Elevated WBC likely steroid- induced. I will keep the patient on oral antibiotic. Begin physical therapy. Continue intravenous Lasix. Recheck electrolytes and creatinine in the morning.
[2017-05-04] MEDS ORDERED: METOPROLOL SUCCINATE 25 MG TAB.SR.24H PO ONE (12:45)
[2017-05-05] MEDS: METOLAZONE 2.5 MG TABLET PO SCH (05:11)
[2017-05-05] MEDS: LANSOPRAZOLE 30 MG TAB.RAP.DR PO SCH (05:11)
[2017-05-05] MEDS: FUROSEMIDE INJ/PF 40 MG/4 ML SDV IV SCH ×2 (05:11→17:14)
[2017-05-05 07:13] LABS: HEMATOCRIT 40.6 % (37.9-51.0); HEMOGLOBIN 12.4 g/dL (13.5-17.0); HGB HCT DIFFERENCE -3.4; MEAN CORPUSCULAR HEMOGLOBIN 25.3 pg (27.0-33.4); MEAN CORPUSCULAR HGB CONC 30.6 g/dL (32.0-36.0); MEAN CORPUSCULAR VOLUME 82 fl (80-97); RED BLOOD COUNT 4.93 10^6/uL (4.35-5.55); WHITE BLOOD COUNT 18.2 10^3/uL (4.0-10.5)
[2017-05-05 07:35] LABS: ANION GAP 12 (5-19); BLOOD UREA NITROGEN 34 mg/dL (7-20); CALCIUM 9.6 mg/dL (8.4-10.2); CARBON DIOXIDE 34 mmol/L (22-30); CHLORIDE 94 mmol/L (98-107); GLUCOSE 108 mg/dL (75-110); POTASSIUM 4.1 mmol/L (3.6-5.0); SODIUM 139.9 mmol/L (137-145)
--- NOTE | 2017-05-05 09:17 | RADIOLOGY REPORT (SQ) ---
EXAM DESCRIPTION: CHEST SINGLE VIEW COMPLETED DATE/TIME: 05/05/2017 8:42 am REASON FOR STUDY: CHF COMPARISON: CT angio chest 04/07/2017 Chest films 03/21/2017, 05/03/2017 EXAM PARAMETERS: NUMBER OF VIEWS: One view. TECHNIQUE: Single frontal radiographic view of the chest acquired. RADIATION DOSE: NA LIMITATIONS: None. FINDINGS: LUNGS AND PLEURA: Dense masslike consolidation of right upper lobe. Dense right middle/lower lobe consolidation worrisome for pneumonia. Small parapneumonic pleural eff usion on the right. Left lung clear. No left pleural effusion. No right or left pneumothorax MEDIASTINUM AND HILAR STRUCTURES: No masses. Contour normal. HEART AND VASCULAR STRUCTURES: Heart normal in size. Normal vasculature. BONES: No acute findings. HARDWARE: None in the chest. OTHER: No other significant finding. IMPRESSION: No change in dense right upper lobe and right middle/lower lobe consolidation. TECHNICAL DOCUMENTATION: JOB ID: [id number]
[2017-05-05] MEDS: TIOTROPIUM BROMIDE DPI 5 CAP/KIT (18 MCG/CAP) IH SCH (10:44)
[2017-05-05] MEDS: DOCUSATE SODIUM 100 MG CAPSULE PO SCH (10:45)
[2017-05-05] MEDS: LISINOPRIL 5 MG TABLET PO SCH (10:45)
[2017-05-05] MEDS: PREDNISONE 20 MG TABLET PO SCH (10:45)
[2017-05-05] MEDS: METOPROLOL SUCCINATE 50 MG TAB.SR.24H PO SCH (10:45)
[2017-05-05] MEDS: LEVOFLOXACIN 750 MG TABLET PO SCH (10:45)
[2017-05-05] MEDS: BUDESONIDE/FORMOTEROL 160-4.5 MCG 60 PUFF/6 GM MDI IH SCH ×2 (10:46→21:12)
[2017-05-05] MEDS: ASPIRIN 81 MG TABLET, ENT COATED PO SCH (10:46)
[2017-05-05] MEDS: ENOXAPARIN SODIUM INJ 40 MG/0.4 ML DISP.SYRIN SUBCUT SCH (10:47)
--- NOTE | 2017-05-05 13:07 | PDOC PROGRESS REPORT ---
Subjective Progress Note for:: 05/05/17 Subjective:: Patient continues to feel better. No PND orthopnea. No nausea vomiting chills or fever. No diarrhea. Lower extremity edema much better as well. Physical Exam Vital Signs: Temp Pulse Resp BP Pulse Ox 97.3 F 97 20 98/72 L 97 05/05/17 11:36 05/05/17 11:36 05/05/17 11:36 05/05/17 11:36 05/05/17 12:00 Pulse Oximeter Continuous Start: 05/03/17 14: 25 Freq: RTQ4 Status: Active Document 05/05/17 12:00 [facility] (Rec: 05/05/17 12:07 CW [email or web address]) Pulse Oximetry Assessment Oxygen Saturation (92-100) 97 Oxygen Flow Rate (L/min) 3 Oxygen Delivery Method Nasal Cannula Equipment Usage Equipment in Use Continuous SpO2 Machine # [id number] Intake & Output 05/04/17 05/05/17 05/06/17 06:59 06:59 06:59 Intake Total 753 539 Output Total 1750 900 Balance -997 -361 Weight 92.7 kg 92.7 kg General appearance: PRESENT: no acute distress, cooperative Head exam: PRESENT: normocephalic Eye exam: PRESENT: EOMI Mouth exam: PRESENT: moist, neck supple Neck exam: ABSENT: JVD Respiratory exam: PRESENT: crackles - Lower lung funk, unlabored. ABSENT: rhonchi, wheezes Cardiovascular exam: PRESENT: RRR. ABSENT: gallop GI/Abdominal exam: PRESENT: normal bowel sounds, soft. ABSENT: distended Extremities exam: PRESENT: +1 edema - Improved Neurological exam: PRESENT: alert, awake, oriented to situation Skin exam: PRESENT: dry, warm. ABSENT: cyanosis Results Laboratory Results: 05/05/17 05:50 05/05/17 05:50 05/05/17 05/05/17 05:50 05:50 WBC 18.2 H RBC 4.93 Hgb 12.4 L Hct 40.6 MCV 82 MCH 25.3 L MCHC 30.6 L RDW 18.0 H Plt Count 564 H Sodium 139.9 Potassium 4.1 Chloride 94 L Carbon Dioxide 34 H Anion Gap 12 BUN 34 H Creatinine 1.10 Est GFR ( Amer) > 60 Est GFR (Non-Af Amer) > 60 Glucose 108 Calcium 9.6 05/03/17 05/03/17 05/03/17 17:28 17:28 23:37 Creatine Kinase 58 48 L CK-MB (CK-2) 0.82 Troponin I 0.026 05/03/17 05/04/17 05/04/17 23:37 05:32 05:32 Creatine Kinase 41 L CK-MB (CK-2) 1.01 0.99 Troponin I 0.030 0.032 Impressions: Chest X-Ray 05/05/17 06:00 IMPRESSION: No change in dense right upper lobe and right middle/lower lobe consolidation. Assessment & Plan - Diagnosis (1) Congestive heart failure Qualifiers: Congestive heart failure type: systolic Congestive heart failure chronicity: acute on chronic Qualified Code(s): I50.23 - Acute on chronic systolic (congestive) heart failure Is this a current diagnosis for this admission?: Yes (2) COPD (chronic obstructive pulmonary disease) Qualifiers: COPD type: unspecified COPD Qualified Code(s): J44.9 - Chronic obstructive pulmonary disease, unspecified Is this a current diagnosis for this admission?: Yes (3) Pneumonia Qualifiers: Pneumonia type: due to unspecified organism Laterality: right Lung location: lower lobe of lung Qualified Code(s): J18.1 - Lobar pneumonia, unspecified organism Is this a current diagnosis for this admission?: Yes (4) Elevated lactic acid level Is this a current diagnosis for this admission?: Yes (5) Abnormal liver function test Is this a current diagnosis for this admission?: Yes - Time Time Spent with patient: 25-34 minutes - Plan Summary Plan Summary: Patient clinically improved. Chest x-ray revealed unchanged infiltrate. We will add clindamycin and check CT scan of the chest to check for loculation. In the meantime, we will decrease steroids and discontinue Zaroxolyn. Continue Lasix for now intravenously.
--- NOTE | 2017-05-05 14:26 | RADIOLOGY REPORT (SQ) ---
EXAM DESCRIPTION: CT CHEST WITH COMPLETED DATE/TIME: 05/05/2017 2:09 pm REASON FOR STUDY: Abnormal chest xray. Loculated effusion. COMPARISON: 04/07/2017 TECHNIQUE: CT scan of the chest performed using helical scanning technique with dynamic intravenous contrast injection. Images reviewed with lung, soft tissue and bone windows. Reconstructed coronal and sagittal MPR images reviewed. All images stored on PACS. All CT scanners at this facility use dose modulation, iterative reconstruction, and/or weight based d osing when appropriate to reduce radiation dose to as low as reasonably achievable (ALARA). [facility]: Dose Right [facility]: CareDose [facility]: Dose Right [facility]: Teradose 4D [facility]: Alekto CONTRAST TYPE AND DOSE: contrast/concentration: Isovue 370.00 mg/ml; Total Contrast Delivered: 80.0 ml; Total Saline Delivered: 34.8 ml RENAL FUNCTION: Creatinine 1.1 BUN 34 RADIATION DOSE: Up-to-date CT equipment and radiation dose reduction techniques were employed. CTDIv ol: 9.5 mGy. DLP: 395 mGy-cm. . LIMITATIONS: None. FINDINGS: LUNGS AND PLEURA: Dense right upper lobe and middle lobe infiltrates are present. There i s a large right pleural effusion. Compressive atelectasis is present in the right lower lobe. Infil trate versus atelectasis in the right lower lobe. HILAR AND MEDIASTINAL STRUCTURES: No identified masses or abnormal nodes. HEART AND VASCULAR STRUCTURES: No aneurysm or dissection. No central pulmonary emboli. No pericardi al effusion. HARDWARE: None in the chest. UPPER ABDOMEN: No significant findings. Limited exam. THYROID AND OTHER SOFT TISSUES: No masses. No adenopathy. BONES: Compression changes are present at T11 OTHER: No other significant finding. IMPRESSION: 1. Multicentric pneumonia in the right lung. 2. Large right pleural effusion. 3. Old compression changes are present at T11. TECHNICAL DOCUMENTATION: JOB ID: [id number] Quality ID # [id number]: Final reports with documentation of one or more dose reduction techniques (e.g., Au tomated exposure control, adjustment of the mA and/or kV according to patient size, use of iterative reconstruction technique) 2010 [employer]- All Rights Reserved
[2017-05-05] MEDS: CLINDAMYCIN HCL 150 MG CAPSULE PO SCH (17:13)
[2017-05-06] MEDS: CLINDAMYCIN HCL 150 MG CAPSULE PO SCH ×4 (00:47→17:46)
[2017-05-06] MEDS: FUROSEMIDE INJ/PF 40 MG/4 ML SDV IV SCH (05:30)
[2017-05-06] MEDS: LANSOPRAZOLE 30 MG TAB.RAP.DR PO SCH (05:30)
[2017-05-06 06:41] LABS: PROTHROMBIN TIME 14.8 SEC (11.4-15.4)
[2017-05-06 06:42] LABS: PARTIAL THROMBOPLASTIN TIME 27.7 SEC (23.5-35.8)
[2017-05-06] MEDS: BUDESONIDE/FORMOTEROL 160-4.5 MCG 60 PUFF/6 GM MDI IH SCH ×2 (09:27→21:52)
[2017-05-06] MEDS: LEVOFLOXACIN 750 MG TABLET PO SCH (09:28)
[2017-05-06] MEDS: LISINOPRIL 5 MG TABLET PO SCH (09:28)
[2017-05-06] MEDS: METOPROLOL SUCCINATE 50 MG TAB.SR.24H PO SCH (09:28)
[2017-05-06] MEDS: PREDNISONE 20 MG TABLET PO SCH (09:28)
[2017-05-06] MEDS: TIOTROPIUM BROMIDE DPI 5 CAP/KIT (18 MCG/CAP) IH SCH (09:29)
[2017-05-06] MEDS: DOCUSATE SODIUM 100 MG CAPSULE PO SCH (09:31)
[2017-05-06] MEDS: ENOXAPARIN SODIUM INJ 40 MG/0.4 ML DISP.SYRIN SUBCUT SCH (09:35)
[2017-05-06] MEDS: ASPIRIN 81 MG TABLET, ENT COATED PO SCH (09:35)
[2017-05-06] MEDS ORDERED: DIGOXIN INJ 0.5 MG/2 ML AMPULE ONE (10:08)
--- NOTE | 2017-05-06 11:41 | PDOC PROGRESS REPORT ---
Subjective Progress Note for:: 05/06/17 Subjective:: Patient feels a little lightheaded but denies having any chest pain or shortness of breath. No PND orthopnea. No nausea or vomiting. Patient has palpitation. There is no diarrhea no abdominal pain, no chills or fever. This morning staff reports atrial fibrillation with RVR and eventually the blood pressure dropped below 90 systolic. Physical Exam Vital Signs: Temp Pulse Resp BP Pulse Ox 97.9 F 67 18 88/62 L 96 05/06/17 09:55 05/06/17 09:55 05/06/17 09:55 05/06/17 09:55 05/06/17 09:55 Pulse Oximeter Continuous Start: 05/03/17 14: 25 Freq: RTQ4 Status: Active Document 05/06/17 03:38 STI (Rec: 05/06/17 03:38 STI [email or web address]) Pulse Oximetry Assessment Oxygen Saturation (92-100) 97 Oxygen Flow Rate (L/min) 3.0 Oxygen Delivery Method Nasal Cannula Fraction of Inspired Oxygen (FIO2) 32 Equipment Usage Equipment in Use Continuous SpO2 Machine # N-[id number] Intake & Output 05/05/17 05/06/17 05/07/17 06:59 06:59 06:59 Intake Total 539 719 Output Total 900 1650 Balance -361 -931 Weight 92.7 kg 82.8 kg General appearance: PRESENT: no acute distress, cooperative Eye exam: PRESENT: EOMI Mouth exam: PRESENT: moist, neck supple Neck exam: ABSENT: JVD Respiratory exam: PRESENT: clear to auscultation flex - Anteriorly bilateral. ABSENT: rhonchi, wheezes Cardiovascular exam: PRESENT: irregular rhythm, tachycardia GI/Abdominal exam: PRESENT: soft. ABSENT: distended, tenderness Extremities exam: PRESENT: other - Trace lower extremity edema bilateral Neurological exam: PRESENT: alert, awake, oriented to situation Skin exam: PRESENT: dry, warm. ABSENT: cyanosis Results Laboratory Results: 05/05/17 05:50 05/05/17 05:50 05/03/17 05/03/17 05/03/17 17:28 17:28 23:37 Creatine Kinase 58 48 L CK-MB (CK-2) 0.82 Troponin I 0.026 05/03/17 05/04/17 05/04/17 23:37 05:32 05:32 Creatine Kinase 41 L CK-MB (CK-2) 1.01 0.99 Troponin I 0.030 0.032 Impressions: Chest CT 05/05/17 00:00 IMPRESSION: 1. Multicentric pneumonia in the right lung. 2. Large right pleural effusion. 3. Old compression changes are present at T11. Chest X-Ray 05/05/17 06:00 IMPRESSION: No change in dense right upper lobe and right middle/lower lobe consolidation. Assessment & Plan - Diagnosis (1) Congestive heart failure Qualifiers: Congestive heart failure type: systolic Congestive heart failure chronicity: acute on chronic Qualified Code(s): I50.23 - Acute on chronic systolic (congestive) heart failure Is this a current diagnosis for this admission?: Yes (2) COPD (chronic obstructive pulmonary disease) Qualifiers: COPD type: unspecified COPD Qualified Code(s): J44.9 - Chronic obstructive pulmonary disease, unspecified Is this a current diagnosis for this admission?: Yes (3) Pneumonia Qualifiers: Pneumonia type: due to unspecified organism Laterality: right Lung location: lower lobe of lung Qualified Code(s): J18.1 - Lobar pneumonia, unspecified organism Is this a current diagnosis for this admission?: Yes (4) Elevated lactic acid level Is this a current diagnosis for this admission?: Yes (5) Abnormal liver function test Is this a current diagnosis for this admission?: Yes - Time Time Spent with patient: 25-34 minutes - Plan Summary Plan Summary: Normal saline bolus total of a liter, digoxin 0.25 mg IV once, continue beta- quirino. Consult cardiology for further evaluation and management. Continue inhaler and antibiotics. DC intravenous Lasix and switched to oral.
[2017-05-06] MEDS ORDERED: VERAPAMIL HCL INJ/PF 5 MG/2 ML SDV IV ONE ×2 (12:29→14:00)
[2017-05-06] MEDS ORDERED: DILTIAZEM HCL/D5W 125 ML IV PRN (12:38)
[2017-05-06] MEDS ORDERED: DILTIAZEM HCL/D5W 125 MG/125 ML RTUINJ IV ONE (12:40)
[2017-05-06] MEDS ORDERED: NORMAL SALINE 500 ML IV ONE (13:00)
--- NOTE | 2017-05-06 13:39 | EKG REPORT ---
SEVERITY:- ABNORMAL ECG - ATRIAL FIBRILLATION, V-RATE 101-188 PROBABLE RIGHT VENTRICULAR HYPERTROPHY LVH BY VOLTAGE : Confirmed by: Argelia Dodge 06-May-2017 13:38:53
--- NOTE | 2017-05-06 13:40 | EKG REPORT ---
SEVERITY:- ABNORMAL ECG - ATRIAL FIBRILLATION WITH RAPID V-RATE LEFT ANTERIOR FASCICULAR BLOCK CONSIDER LEFT VENTRICULAR HYPERTROPHY ANTERIOR Q WAVES, POSSIBLY DUE TO LVH : Confirmed by: Argelia Dodge 06-May-2017 13:39:10
[2017-05-06] MEDS ORDERED: MIDODRINE HCL 5 MG TABLET PO ONE (19:21)
--- NOTE | 2017-05-06 22:20 | EKG REPORT ---
SEVERITY:- ABNORMAL ECG - SINUS TACHYCARDIA LEFT ATRIAL ABNORMALITY PROBABLE ANTEROSEPTAL INFARCT, OLD LOW VOLTAGE QRS COMPLEX : Confirmed by: Argelia Dodge 06-May-2017 22:19:43
--- NOTE | 2017-05-06 22:28 | CONSULTATION REPORT E ---
Consultation Report NAME: ZEENAT MENDES : 1960 AGE: 57Y DATE: 05/06/2017 ROOM: 331 A TO: EMMANUEL PEREZ M.D. FROM: NADEEM CRUZ Requesting Physician REASON FOR CONSULTATION: The patient with supraventricular tachycardia with a narrow complex and irregular heart rate. The question is whether this is atrial fibrillation with a rapid ventricular response versus multifocal atrial tachycardia. Since the patient's prior rhythm strip chronic atrial mechanism. Also the consult is for the patient's hypotension. HISTORY OF PRESENT ILLNESS: The patient is a 57-year-old male with a history of congestive heart failure with acute on chronic systolic heart failure episodes with LV ejection fraction of 30% who was recently discharged from the hospital on 04/29, after being treated for pneumonia. He was discharged home on prednisone and antibiotics. The patient states since the day after he went home he started having increasing shortness of breath with PND, orthopnea, and with some mild leg edema. He had no chest pain. He said he was very weak. He was having cough and some wheezing but he was not able to cough up any sputum because he was very weak. He also had fever, chills, and rigors. The patient was admitted as acute exacerbation of COPD and pneumonia since the chest x-ray showed pneumonia on the right lung. The patient today went into a rapid irregular narrow complex SVT. The differential diagnosis as mentioned earlier is atrial fibrillation with rapid ventricular response versus multifocal atrial tachycardia. The patient was also hypotensive with a blood pressure of 88. He was given a fluid bolus and also given digoxin and subsequently the patient's blood pressure came up to 100. I gave the patient 5 mg of verapamil which did bring the heart rate down and it seemed that although I am not very sure that this was multifocal atrial tachycardia rather than atrial fibrillation. Subsequently a 12-lead EKG was very suspicious but could not be sure. I also started the patient on Cardizem at 2.5 mg per hour. The patient states at present he is much better but still has orthopnea and still has some episodes of PND. There are no chest pains, palpitations, or syncope or dizziness. He has no TIA or CVA symptoms. PAST MEDICAL HISTORY: Negative for hypertension. The patient states he has a history of coronary artery disease, history of remote [place] with no recent anginal symptoms. His cardiac workup is unknown, as the patient does not seem to know. He has no history of diabetes mellitus. He has a history of COPD. The patient quit smoking many years ago. Recent symptoms suggestive of pneumonia and also symptoms of acute on chronic systolic heart failure. He has no history of sleep apnea. No history of pulmonary embolism. The patient does have a cough but he is not able to bring up sputum due to weakness. The patient denies any chronic kidney disease. There is no history of thyroid disease. There is no history of GI bleed. PAST SURGICAL HISTORY: Positive for tonsillectomy when young. He also had his upper teeth removed. REVIEW OF SYSTEMS: CONSTITUTIONAL: Complains of generalized fatigue, malaise, and fever, chills, and rigors but the temperature is not exactly known, although the patient says that he had fever. HEAD: Denies any headaches, does have some lightheadedness but no syncope. No history of head injury. EYES: No history of amblyopia or diplopia. No history of amaurosis fugax. EARS: Hearing loss of the left ear. No vertigo. No tinnitus. No recurrent ear infections. NOSE: No history of nosebleeds. No history of nasal polyps. No history of deviated nasal septum. No history of hay fever. MOUTH: No history of altered taste sensation. No history of ulcers in the mouth. No bleeding from the gums. THROAT: No history of odynophagia or dysphagia. No history of recurrent sore throats. SKIN: No history of pruritus. No history of yellowish discoloration of the skin. No history of psoriasis. No history of skin cancer. NECK: No history symptoms of C-spine arthritis. No swelling in the neck. No history of goiter. LUNGS: History of COPD with acute exacerbation. Recently treated for pneumonia and sent home on antibiotics and prednisone. Has come back with right upper lobe and right lower lobe pneumonia with also an effusion in the right lower lobe. Does have cough but is not able to bring up any sputum. He has no history of sleep apnea. No history of pulmonary embolism. No history of pleuritic chest pain. No hemoptysis. CARDIAC: History of cardiomyopathy. History of coronary artery disease. History of old [place] as per patient, no anginal symptoms in a long time. Cardiac workup is not known. He has a history of PND, orthopnea, and some leg swelling suggestive of acute on chronic systolic heart failure. The patient has cardiomyopathy with an LV ejection fraction of 30% by recent echo. The patient does feel palpitations even though his heart rate was very fast, went up in the 150s. The patient has lightheadedness and hypotension, but no syncope. The patient has some leg edema and PND and orthopnea as mentioned earlier. GASTROINTESTINAL: History of hiatal hernia present. GERD present. No history of GI bleed. No history of fatty food intolerance. No history of cirrhosis. No history of hepatitis. No history of altered bowel movements. No abdominal pain. MUSCULOSKELETAL: Denies arthritis or collagen vascular disease. RENAL: No history of chronic kidney disease. No symptom of UTI. No history of hematuria, pyuria, or dysuria. CENTRAL NERVOUS SYSTEM: No history of TIA or CVA. No history of headaches, migraines, or seizures. No history of gait imbalance. PSYCHIATRIC: No history of anxiety or depression. No history of suicidal ideation. No history of homicidal ideation. VASCULAR: No history of calf or buttock claudication. No history of DVT. HEMATOLOGICAL: No history of bleeding diathesis. No history of clotting disorders. The rest of the review of symptoms is negative. MEDICATIONS: 1. Tylenol 650 mg p.o. q.4 hours p.r.n. 2. Aspirin 81 mg p.o. daily. 3. Symbicort HFA 160-4.5 mcg inhaler 2 puffs q.12 hours. 4. Clindamycin 300 mg p.o. q.6 hours. 5. He did get digoxin 2.5 mg IV push x1. 6. Lovenox 40 mg subcutaneously daily. 7. Lasix 40 mg p.o. daily. 8. Prevacid 30 mg p.o. at 6 a.m. 9. Levaquin 750 mg p.o. daily. 10. Toprol (metoprolol) XL 50 mg p.o. daily. 11. Normal saline 500 mL IV bolus due to hypotension. 12. Zofran 4 mg IV q.6 hours p.r.n. 13. Deltasone (prednisone) 40 mg p.o. daily. 14. Spiriva inhaler 1 capsule inhalation daily. ALLERGIES: PENICILLIN. SOCIAL HISTORY: The patient quit smoking many years ago. There is no history of EtOH abuse. CODE STATUS: The patient is a full code. Although he has children, he has named is 2 friends as his surrogate healthcare decision maker. One of them is Elio *------*. PHYSICAL EXAMINATION: GENERAL: On examination the patient at present does have orthopnea. He is well built but appears to be chronically ill. He does not seem to be in any major distress. There are no accessory muscles of respiration in use. VITAL SIGNS: He is afebrile with a temperature of 97.9 degrees Fahrenheit, pulse is 67 beats per minute, respirations are 18 per minute, O2 saturations are 96% on 3 L nasal cannula. Earlier his blood pressure was 88/62 and subsequently came up to 100/62. HEENT: Head is atraumatic, normocephalic. Eyes: Pupils are equal, round and regular, reactive to light and accommodation. Extraocular movements are normal. There is no conjunctival pallor. There is no scleral icterus. Ears: Tympanic membranes are intact. External auditory canals are clear. There are no lesions of the pinnae. Nose: There is no deviated nasal septum. There is no inflammation of the nasal mucous membrane. There are no nasal polyps. Mouth: Mucous membranes of the mouth are moist. Tongue is moist. There is no ulcer. There is no bleeding from the gums. Throat: There is no redness of the oropharynx. There are no exudates. SKIN: There are no skin rashes. There are no skin lesions. There is no petechiae or ecchymosis. NECK: Supple. There is mild JVD present. There is no lymphadenopathy. There is no goiter. Carotids are equal. There is no bruit. Trachea is central. LUNGS: Show dullness in the right base. There is bronchial breath sounds about the area of dullness in the right base and also there is bronchial breath sound in the right upper lobe. The rest of the lungs show diminished air entry, prolonged expiration. There are also bibasilar rales and some congestive heart failure. There is no chest wall tenderness. HEART: S1 and S2 is heard. S1 is of normal intensity. There is no S3 gallop or S4 gallop. There is a systolic murmur in the left sternal border and the apex. There is no rub. ABDOMEN: Soft, nontender. There is no hepatosplenomegaly. Bowel sounds are well heard. There are no tender areas of masses. EXTREMITIES: Femorals are diminished. There are no femoral bruits. Leg pulses are diminished. There is trace pedal edema bilaterally. There is no cyanosis or clubbing. There is no DVT or cellulitis. Capillary refill is normal. CENTRAL NERVOUS SYSTEM: The patient is conscious, awake, alert and oriented x3 with no focal deficits. PSYCHIATRIC: The patient's judgment and insight are intact. His affect is normal. INTAKE/OUTPUT: The patient's 24 hour intake is 719 mL in, output is 1650 mL. DIAGNOSTIC STUDIES: The patient's EKG on admission shows a sinus tachycardia. There seems to be evidence of 3 different P-wave morphologies suggestive of multifocal atrial tachycardia. Left atrial abnormality, probable left axis deviation. Consider anteroseptal infarct secondary to poor R-wave progression V1 to V4. Nonspecific T-wave abnormalities lateral leads. The patient's chest x-ray done on admission shows right upper lobe pneumonia and residual right lower lobe pneumonia with apparent small right pleural effusion. Shows multicentric pneumonia in the right lung, large pleural effusion, old compression changes. I also feel that there is some element of congestive heart failure, at least clinically. The patient's chest x-ray done yesterday; no change in dense right upper lobe and right middle/lower lobe consolidation. The patient's EKG shows rapid SVT with narrow complex with irregular rhythm. The differential diagnosis is atrial fibrillation with rapid ventricular response versus multifocal atrial tachycardia. The patient's sodium is 139.9, potassium 4.1, chloride is 94, CO2 is 34, BUN is 34, creatinine 1.10, GFR is greater than 60. His magnesium was 1.6, calcium 9.6. His cardiac enzymes have been negative x3. The patient's NT-proBNP is 90,400. His liver function test show an elevated ALT of 99 and elevated alk-phos of 230. His albumin is low at 3.2. His total protein 6.8. His free T4 is 1.07. His TSH is 0.47. The patient's ProTime is 14.8, INR is 1.08, PTT is 27.7. The patient's white count is 18,200; hemoglobin 12.4; hematocrit 40.6; the patient's platelet count is 164,000. IMPRESSION: 1. SVT which is irregular and with narrow complexes. The differential diagnosis is atrial fibrillation with rapid ventricular response versus multifocal atrial tachycardia. veneer manufacturer strips showed 3 different P-wave morphologies, hence this is most likely multifocal atrial tachycardia, but cannot be sure. 2. Hypotension secondary to pump failure and the patient being in atrial fibrillation/multifocal atrial tachycardia/SVT with a rapid ventricular response. 3. Congestive heart failure due to acute on chronic systolic heart failure. 4. Pneumonia, multicentric in the right upper lobe and right middle and right lower lobe with a small right pleural effusion. 5. COPD with acute exacerbation. 6. Cardiomyopathy with severely reduced LV ejection fraction. 7. History of coronary artery disease, history of [place]. No definite cardiac workup done and the patient has no anginal symptoms. RECOMMENDATIONS: Would continue the patient on Cardizem at 2.5 mg. We will try to avoid the patient being treated with digoxin IV. Continue metoprolol. Continue antibiotics. Continue respiratory treatments. Continue steroids. Note that the patient was seen at 10 a.m. this morning. Forty minutes spent on this patient with more than 50% of the time spent on direct patient care. The patient's medications were reviewed and medications added and medications adjusted. Also discussed with the attending physician and coordination of care done. This is a case which required highly complex medical decision making. Will follow with you. More than 50% of the time spent on direct patient care. DICTATING PHYSICIAN: EMMANUEL PEREZ M.D. [id number] PHY#: [id number] ID: [id number] JOB#: [id number] ACCT: [id number] cc:EMMANUEL PEREZ M.D. >
[2017-05-07] MEDS: CLINDAMYCIN HCL 150 MG CAPSULE PO SCH ×4 (00:48→17:03)
[2017-05-07] MEDS: LANSOPRAZOLE 30 MG TAB.RAP.DR PO SCH (05:43)
[2017-05-07] MEDS ORDERED: MIDODRINE HCL 5 MG TABLET PO SCH ×3 (06:00→15:00)
[2017-05-07 06:39] LABS: HEMATOCRIT 40.9 % (37.9-51.0); HEMOGLOBIN 12.8 g/dL (13.5-17.0); HGB HCT DIFFERENCE -2.5; MEAN CORPUSCULAR HEMOGLOBIN 25.7 pg (27.0-33.4); MEAN CORPUSCULAR HGB CONC 31.2 g/dL (32.0-36.0); MEAN CORPUSCULAR VOLUME 83 fl (80-97); RED BLOOD COUNT 4.95 10^6/uL (4.35-5.55); WHITE BLOOD COUNT 18.8 10^3/uL (4.0-10.5)
[2017-05-07] MEDS: MIDODRINE HCL 5 MG TABLET PO SCH ×3 (06:43→15:02)
[2017-05-07 06:58] LABS: ANION GAP 10 (5-19); BLOOD UREA NITROGEN 42 mg/dL (7-20); CALCIUM 9.5 mg/dL (8.4-10.2); CARBON DIOXIDE 35 mmol/L (22-30); CHLORIDE 93 mmol/L (98-107); CREATININE RESULT 0.96 mg/dL (0.52-1.25); GLUCOSE 129 mg/dL (75-110); MAGNESIUM 1.9 mg/dL (1.6-2.3); POTASSIUM 4.3 mmol/L (3.6-5.0); SODIUM 137.9 mmol/L (137-145)
[2017-05-07] MEDS: LEVOFLOXACIN 750 MG TABLET PO SCH (10:02)
[2017-05-07] MEDS: LISINOPRIL 5 MG TABLET PO SCH (10:03)
[2017-05-07] MEDS: ASPIRIN 81 MG TABLET, ENT COATED PO SCH (10:04)
[2017-05-07] MEDS: FUROSEMIDE 40 MG TABLET PO SCH (10:04)
[2017-05-07] MEDS: ENOXAPARIN SODIUM INJ 40 MG/0.4 ML DISP.SYRIN SUBCUT SCH (10:05)
[2017-05-07] MEDS: PREDNISONE 20 MG TABLET PO SCH (10:05)
[2017-05-07] MEDS: DOCUSATE SODIUM 100 MG CAPSULE PO SCH (10:10)
[2017-05-07] MEDS: METOPROLOL SUCCINATE 50 MG TAB.SR.24H PO SCH (10:45)
[2017-05-07] MEDS: TIOTROPIUM BROMIDE DPI 5 CAP/KIT (18 MCG/CAP) IH SCH (10:46)
[2017-05-07] MEDS: BUDESONIDE/FORMOTEROL 160-4.5 MCG 60 PUFF/6 GM MDI IH SCH ×2 (10:47→21:19)
--- NOTE | 2017-05-07 11:27 | PDOC PROGRESS REPORT ---
Subjective Progress Note for:: 05/07/17 Subjective:: Patient continues to improve however heart rate still uncontrolled at times. Patient is now in sinus rhythm. Patient reports no respiratory distress nor chest pain. No PND orthopnea. Denies diarrhea. No nausea or vomiting. Patient is on Cardizem drip and was placed on midodrine by cardiology service. Physical Exam Vital Signs: Temp Pulse Resp BP Pulse Ox 98.1 F 97 18 107/86 H 100 05/07/17 07:57 05/07/17 07:57 05/07/17 07:57 05/07/17 07:00 05/07/17 07:57 Pulse Oximeter Continuous Start: 05/03/17 14: 25 Freq: RTQ4 Status: Active Document 05/07/17 07:55 [facility] (Rec: 05/07/17 09:45 [facility] [email or web address]) Pulse Oximetry Assessment Oxygen Saturation (92-100) 96 Oxygen Flow Rate (L/min) 2 Oxygen Delivery Method Nasal Cannula Equipment Usage Equipment in Use Continuous SpO2 Machine # [id number] Intake & Output 05/06/17 05/07/17 05/08/17 06:59 06:59 06:59 Intake Total 719 2692 Output Total 1650 1800 Balance -931 892 Weight 82.8 kg 82.5 kg General appearance: PRESENT: no acute distress, cooperative Head exam: PRESENT: normocephalic Eye exam: PRESENT: EOMI, PERRLA Mouth exam: PRESENT: moist, neck supple Respiratory exam: ABSENT: rhonchi, wheezes Cardiovascular exam: PRESENT: irregular rhythm. ABSENT: gallop GI/Abdominal exam: PRESENT: soft. ABSENT: distended, tenderness Extremities exam: PRESENT: +1 edema Neurological exam: PRESENT: alert, awake, oriented to situation Skin exam: PRESENT: dry, warm. ABSENT: cyanosis Results Laboratory Results: 05/07/17 05:56 05/07/17 05:56 05/07/17 05/07/17 05:56 05:56 WBC 18.8 H RBC 4.95 Hgb 12.8 L Hct 40.9 MCV 83 MCH 25.7 L MCHC 31.2 L RDW 18.0 H Plt Count 543 H Sodium 137.9 Potassium 4.3 Chloride 93 L Carbon Dioxide 35 H Anion Gap 10 BUN 42 H Creatinine 0.96 Est GFR ( Amer) > 60 Est GFR (Non-Af Amer) > 60 Glucose 129 H Calcium 9.5 Magnesium 1.9 05/03/17 05/03/17 05/03/17 17:28 17:28 23:37 Creatine Kinase 58 48 L CK-MB (CK-2) 0.82 Troponin I 0.026 05/03/17 05/04/17 05/04/17 23:37 05:32 05:32 Creatine Kinase 41 L CK-MB (CK-2) 1.01 0.99 Troponin I 0.030 0.032 Impressions: Chest CT 05/05/17 00:00 IMPRESSION: 1. Multicentric pneumonia in the right lung. 2. Large right pleural effusion. 3. Old compression changes are present at T11. Chest X-Ray 05/05/17 06:00 IMPRESSION: No change in dense right upper lobe and right middle/lower lobe consolidation. Assessment & Plan - Diagnosis (1) Congestive heart failure Qualifiers: Congestive heart failure type: systolic Congestive heart failure chronicity: acute on chronic Qualified Code(s): I50.23 - Acute on chronic systolic (congestive) heart failure Is this a current diagnosis for this admission?: Yes (2) COPD (chronic obstructive pulmonary disease) Qualifiers: COPD type: unspecified COPD Qualified Code(s): J44.9 - Chronic obstructive pulmonary disease, unspecified Is this a current diagnosis for this admission?: Yes (3) Pneumonia Qualifiers: Pneumonia type: due to unspecified organism Laterality: right Lung location: lower lobe of lung Qualified Code(s): J18.1 - Lobar pneumonia, unspecified organism Is this a current diagnosis for this admission?: Yes (4) Elevated lactic acid level Is this a current diagnosis for this admission?: Yes (5) Abnormal liver function test Is this a current diagnosis for this admission?: Yes - Time Time Spent with patient: 25-34 minutes - Plan Summary Plan Summary: Antibiotics to complete. Continue Cardizem drip. We will decrease prednisone. Continue as needed bronchodilators. Continue current antibiotic. Therapeutic thoracentesis in a.m. Continue supportive care.
[2017-05-07] MEDS ORDERED: PREDNISONE 20 MG TABLET PO ONE (12:30)
[2017-05-07] MEDS ORDERED: METOPROLOL TARTRATE 25 MG TABLET PO ONE ×2 (12:30→20:00)
[2017-05-07] MEDS ORDERED: METOLAZONE 2.5 MG TABLET PO ONE (19:15)
--- NOTE | 2017-05-07 19:33 | PROGRESS NOTE E ---
Progress Note NAME: ZEENAT MENDES : 1960 AGE: 57Y DATE: 05/07/2017 ROOM: 331 SUBJECTIVE: The patient states he feels a little better but still complains of weakness and shortness of breath. He still has some cough but is unable to bring up any sputum. There is orthopnea present but no PND. There is no leg edema. There is no chest pain or discomfort. The patient is in sinus rhythm. At present, he is in sinus tachycardia. OBJECTIVE: GENERAL: On examination the patient appears to be chronically ill. VITAL SIGNS: He is afebrile with a temperature of 97.5 degrees Fahrenheit. His pulse is 102 beats per minute, sinus tachycardia by monitor with a blood pressure of 111/76. Respirations are 18 per minute. O2 saturations are 96% on 2 liters nasal cannula. HEAD: Atraumatic/normocephalic. EYES: Pupils are equal, round, regular, reactive to light and accommodation. Extraocular movements are normal. There is no conjunctival pallor. There is no scleral icterus. EARS, NOSE, AND THROAT: Negative. NECK: Supple. There is no JVD. Carotids are equal. There is no bruit. There is no lymphadenopathy. There is no goiter. Trachea is central. LUNGS: Show dullness in the right base. There are bronchial breath sounds above the area of dullness in the right base, and also there are bronchial breath sounds in the right upper lobe. The rest of the lungs showed diminished air entry and prolonged expiration. There are also bibasilar rales. The rest of the chest shows hyperresonance. There is dullness in the right base. There is no chest wall tenderness. HEART: S1, S2 is heard. S1 is of normal intensity. There is no S3 gallop. There is no S4 gallop. There is a systolic murmur in the left sternal border and the apex. There is no rub. ABDOMEN: Soft, nontender. There is no hepatosplenomegaly. Bowel sounds are well heard. There are no tender areas or masses. EXTREMITIES: Femorals are diminished. There is no femoral bruit. Leg pulses are diminished. There is no pedal edema. There is no cyanosis or clubbing. There is no DVT or cellulitis. Capillary refill is normal. There is no calf tenderness. CENTRAL NERVOUS SYSTEM: The patient is conscious, awake, alert, oriented x3 with no focal deficit. PSYCHIATRIC: The patient's judgement and insight are intact. His affect is normal. FLUID BALANCE: The patient's 24-hour intake is 2695 mL, output is 1800 mL. DIAGNOSTIC DATA: The patient's white count is 18,800, hemoglobin is 12.8, hematocrit is 40.9, platelet count is *------*. The patient's sodium is 137, potassium is 4.3, chloride is 39, CO2 is 35, the patient's BUN is 42, creatinine 0.96, GFR is greater than 60, and his glucose is 120. His calcium is 9.5, and his magnesium is 1.9. IMPRESSION: 1. SUPRAVENTRICULAR TACHYCARDIA WHICH IS IRREGULAR WITH NARROW COMPLEXES WITH *------* WITH ATRIAL FIBRILLATION WITH RAPID VENTRICULAR RESPONSE VERSUS MULTIFOCAL ATRIAL TACHYCARDIA. At present, the patient is in sinus tachycardia. 2. HYPOTENSION. There is some degree of response to midodrine. Continue midodrine. 3. CONGESTIVE HEART FAILURE DUE TO ACUTE ON CHRONIC SYSTOLIC HEART FAILURE. Continue the patient on lisinopril and increase the patient's metoprolol. Would recommend starting the patient on a small dose of diuretics in addition to the Lasix 40 mg p.o. daily. Will start the patient on Zaroxolyn 2.5 mg p.o. daily. 4. CARDIOMYOPATHY WITH SEVERELY REDUCED LV EJECTION FRACTION. 5. PNEUMONIA WITH INFILTRATE IN THE RIGHT UPPER LOBE AND RIGHT MIDDLE AND RIGHT LOWER LOBE WITH A RIGHT PLEURAL EFFUSION. The patient most likely will have a thoracentesis of the right pleural effusion for diagnostic purposes. 6. COPD WITH ACUTE EXACERBATION, SLOWLY IMPROVING. Continue anti-COPD medication and continue antibiotics. 7. HISTORY OF CORONARY ARTERY DISEASE, HISTORY OF [place]. No definite cardiac workup done. The patient has no anginal symptoms. Later, once the patient goes back to baseline, then would recommend the patient to have an IV Lexiscan Cardiolite stress test. RECOMMENDATIONS: Would increase the Cardizem at 2.5 mg. Will increase the patient's metoprolol and later stop the patient's Cardizem drip. Continue the patient's DIAMOND inhibitor. As mentioned earlier, along with the Lasix would add a small dose of Zaroxolyn. Continue Lovenox and DVT prophylaxis doses. Continue the patient on DIAMOND inhibitor and beta quirino. Note, 40 minutes spent on this patient with more than 50% of the time spent in direct patient care, and the patient's medications have been reviewed and adjusted and medications added. Discussed the case with the other caregiving providers on the case and formulated a coordinated plan of care/management of this patient's current morbidities. Note, again this involves again highly complex medical decision making in view of the patient's cardiomyopathy and COPD with pneumonia. As mentioned earlier, the patient is a FULL CODE. Although he has relatives, he states that his friends are his surrogate healthcare decision makers, especially Mr. Elio Downing is his surrogate healthcare decision maker. Note, review of systems has no change. His medications have been reviewed and adjusted and new medications added. DICTATING PHYSICIAN: EMMANUEL PEREZ M.D. [id number] PHY#: [id number] ID: [id number] JOB#: [id number] ACCT: [id number] cc:EMMANUEL PEREZ M.D. >
[2017-05-08] MEDS: CLINDAMYCIN HCL 150 MG CAPSULE PO SCH ×5 (01:24→23:47)
[2017-05-08] MEDS: METOPROLOL TARTRATE 25 MG TABLET PO SCH ×5 (01:25→23:47)
[2017-05-08] MEDS: LANSOPRAZOLE 30 MG TAB.RAP.DR PO SCH (06:20)
[2017-05-08] MEDS: MIDODRINE HCL 5 MG TABLET PO SCH ×3 (06:20→15:01)
--- NOTE | 2017-05-08 08:27 | PDOC PROGRESS REPORT ---
Subjective Progress Note for:: 05/08/17 Subjective:: Patient denies any shortness of breath at rest nor any chest pain, no nausea or vomiting, no diaphoresis. Denies PND orthopnea. Able to sleep well last night. Frustrated this morning due to being hospitalized repeatedly. Otherwise patient voiced no discomfort at this time. Denies having any diarrhea. Physical Exam Vital Signs: Temp Pulse Resp BP Pulse Ox 97.2 F 90 20 114/92 H 99 05/08/17 07:29 05/08/17 07:29 05/08/17 07:29 05/08/17 07:29 05/08/17 07:29 Pulse Oximeter Continuous Start: 05/03/17 14: 25 Freq: RTQ4 Status: Complete Document 05/08/17 08:00 LDA (Rec: 05/08/17 08:19 LDA [email or web address]) Pulse Oximetry Assessment Equipment Usage Equipment Discontinued Continuous SpO2 Machine # 7 Intake & Output 05/07/17 05/08/17 05/09/17 06:59 06:59 06:59 Intake Total 2692 1861 Output Total 1800 2100 Balance 892 -239 Weight 82.5 kg 82.3 kg General appearance: PRESENT: no acute distress, cooperative Head exam: PRESENT: normocephalic Eye exam: PRESENT: EOMI Mouth exam: PRESENT: moist, neck supple Neck exam: ABSENT: JVD Respiratory exam: PRESENT: clear to auscultation flex - Anteriorly, decreased breath sounds - Posteriorly on the lower lung funk. ABSENT: rhonchi, wheezes Cardiovascular exam: PRESENT: irregular rhythm, RRR. ABSENT: gallop GI/Abdominal exam: PRESENT: soft. ABSENT: distended, tenderness Extremities exam: PRESENT: +1 edema Neurological exam: PRESENT: alert, awake, oriented to person, oriented to place , oriented to time, oriented to situation Skin exam: PRESENT: dry, warm. ABSENT: cyanosis Results Laboratory Results: 05/07/17 05:56 05/07/17 05:56 05/03/17 05/03/17 05/03/17 17:28 17:28 23:37 Creatine Kinase 58 48 L CK-MB (CK-2) 0.82 Troponin I 0.026 05/03/17 05/04/17 05/04/17 23:37 05:32 05:32 Creatine Kinase 41 L CK-MB (CK-2) 1.01 0.99 Troponin I 0.030 0.032 Impressions: Chest CT 05/05/17 00:00 IMPRESSION: 1. Multicentric pneumonia in the right lung. 2. Large right pleural effusion. 3. Old compression changes are present at T11. Chest X-Ray 05/05/17 06:00 IMPRESSION: No change in dense right upper lobe and right middle/lower lobe consolidation. Assessment & Plan - Diagnosis (1) Pleural effusion Is this a current diagnosis for this admission?: Yes (2) Congestive heart failure Qualifiers: Congestive heart failure type: systolic Congestive heart failure chronicity: acute on chronic Qualified Code(s): I50.23 - Acute on chronic systolic (congestive) heart failure Is this a current diagnosis for this admission?: Yes (3) Atrial tachycardia, multifocal Is this a current diagnosis for this admission?: Yes (4) COPD (chronic obstructive pulmonary disease) Qualifiers: COPD type: unspecified COPD Qualified Code(s): J44.9 - Chronic obstructive pulmonary disease, unspecified Is this a current diagnosis for this admission?: Yes (5) Pneumonia Qualifiers: Pneumonia type: due to unspecified organism Laterality: right Lung location: lower lobe of lung Qualified Code(s): J18.1 - Lobar pneumonia, unspecified organism Is this a current diagnosis for this admission?: Yes (6) Elevated lactic acid level Is this a current diagnosis for this admission?: Yes (7) Abnormal liver function test Is this a current diagnosis for this admission?: Yes - Time Time Spent with patient: 25-34 minutes - Plan Summary Plan Summary: Patient is off Cardizem drip. Increase metoprolol. Therapeutic thoracentesis today. Continue antibiotics. Continue supportive care. Follow-up chest x-ray in the morning. if patient is stable, likely can be discharged home in the morning.
[2017-05-08] MEDS: LISINOPRIL 5 MG TABLET PO SCH (09:16)
[2017-05-08] MEDS: FUROSEMIDE 40 MG TABLET PO SCH (09:17)
[2017-05-08] MEDS: PREDNISONE 20 MG TABLET PO SCH (09:18)
[2017-05-08] MEDS: LEVOFLOXACIN 750 MG TABLET PO SCH (09:18)
[2017-05-08] MEDS: TIOTROPIUM BROMIDE DPI 5 CAP/KIT (18 MCG/CAP) IH SCH (09:19)
[2017-05-08] MEDS: BUDESONIDE/FORMOTEROL 160-4.5 MCG 60 PUFF/6 GM MDI IH SCH ×2 (09:20→21:15)
[2017-05-08] MEDS: DOCUSATE SODIUM 100 MG CAPSULE PO SCH (09:22)
[2017-05-08] MEDS: ASPIRIN 81 MG TABLET, ENT COATED PO SCH (09:31)
[2017-05-08] MEDS: ENOXAPARIN SODIUM INJ 40 MG/0.4 ML DISP.SYRIN SUBCUT SCH (09:31)
[2017-05-08] MEDS ORDERED: METOLAZONE 2.5 MG TABLET PO SCH (10:00)
--- NOTE | 2017-05-08 10:51 | RADIOLOGY REPORT (SQ) ---
EXAM DESCRIPTION: CHEST SINGLE VIEW COMPLETED DATE/TIME: 05/08/2017 10:23 am REASON FOR STUDY: S/P RT THORACENTESIS COMPARISON: 05/03/2017 NUMBER OF VIEWS: One view. TECHNIQUE: Single frontal radiographic image of the chest acquired. LIMITATIONS: None. FINDINGS: LUNGS AND PLEURA: Interval decrease in right pleural effusion status post thoracentesis. No pneumothorax. MEDIASTINUM AND HEART: Stable heart size and mediastinal structures. BONY STRUCTURES: No acute findings. HARDWARE: None. OTHER: No other significant finding. IMPRESSION: No pneumothorax. TECHNICAL DOCUMENTATION: JOB ID: [id number]
--- NOTE | 2017-05-08 11:06 | RADIOLOGY REPORT (SQ) ---
EXAM DESCRIPTION: U/S THORACENTESIS WITH IMAGING COMPLETED DATE/TIME: 05/08/2017 10:02 am REASON FOR STUDY: Lge R pleural effusion, therapeautic thoracentesis COMPARISON: None. LIMITATIONS: None. PROCEDURE: Procedure, risks, benefit, and alternative explained to patient who then gave written con sent. The posterior right chest wall was marked using ultrasound guidance. A time-out was called fo r correct marking verification. Chest prepped and draped using sterile technique. Local anesthesia a chieved using 5 ml of 1% lidocaine injection. A 6fr Safe-T- Centesis set was introduced into the pos terior right pleural space. Fluid was aspirated. The catheter was removed and the entry site was co renato with sterile bandage. No immediate complications noted. Images acquired during the procedure were stored on PACS. FINDINGS: ENTRY SITE: Posterior right chest. FLUID VOLUME: 1 L FLUID ANALYSIS: Ivet OTHER: Fluid sent to the lab for testing. IMPRESSION: SUCCESSFUL THORACENTESIS USING ULTRASOUND GUIDANCE. COMMENT: Patient medication list reviewed: Yes- Quality ID# [id number]:Eligible professional attests to doc umenting in the medical record they obtained, updated, or reviewed the patient's current medications. Quality ID #[id number]: Final reports for procedures using fluoroscopy that document radiation exposure gina segun, or exposure time and number of fluorographic images (if radiation exposure indices are not avail able) TECHNICAL DOCUMENTATION: JOB ID: [id number] [employer]- All Rights Reserved
--- NOTE | 2017-05-08 13:31 | RADIOLOGY REPORT (SQ) ---
EXAM DESCRIPTION: CHEST SINGLE VIEW COMPLETED DATE/TIME: 05/08/2017 12:16 pm REASON FOR STUDY: 2 HOURS S/P RT THORACENTESIS COMPARISON: 05/08/2017 EXAM PARAMETERS: NUMBER OF VIEWS: One view. TECHNIQUE: Single frontal radiographic view of the chest acquired. RADIATION DOSE: NA LIMITATIONS: None. FINDINGS: LUNGS AND PLEURA: A large mass versus infiltrate is suggested in the right upper lobe late rally. A somewhat loculated pleural effusion is present in the right base. There is no pneumothorax . MEDIASTINUM AND HILAR STRUCTURES: No masses. Contour normal. HEART AND VASCULAR STRUCTURES: Heart size is borderline. No evidence of failure. BONES: No acute findings. HARDWARE: None in the chest. OTHER: No other significant finding. IMPRESSION: 1. There is no pneumothorax. 2. Findings as described. TECHNICAL DOCUMENTATION: JOB ID: [id number]
[2017-05-08 13:55] LABS: FLUID APPEARANCE CLOUDY; FLUID RBC AVERAGE 172.5; FLUID RBC DILUENT USED SALINE; FLUID RBC DILUTION FACTOR 5; FLUID RBC SIDE 1 172; FLUID RBC SIDE 2 173; FLUID TYPE PLEURAL; TOTAL RBC SQUARES COUNTED FLD 50
--- NOTE | 2017-05-08 14:03 | PROGRESS NOTE E ---
Progress Note NAME: ZEENAT MENDES : 1960 AGE: 57Y DATE: 05/08/2017 ROOM: 331 SUBJECTIVE: Note that the patient has thoracentesis and 1000 mL of fluid was removed from the right lung. Pleural fluid analysis is awaited. The patient denies any chest pain or discomfort. There is no cough or sputum production. There is no PND, orthopnea, or leg edema. The patient denies any chest pain or discomfort. There are no TIA or CVA symptoms. OBJECTIVE: GENERAL: On examination, the patient is well built, appears to be chronically ill. VITAL SIGNS: He is afebrile with a temperature of 97.6 degrees Fahrenheit, pulse is 94 beats per minute, blood pressure 102/68, respirations are 18 per minute, O2 saturations are 97% on 2 L nasal cannula. HEAD: Atraumatic, normocephalic. EYES: Pupils are equal, round, regular, reactive to light and accommodation. Extraocular movements are normal. There is no conjunctival pallor. There is no scleral icterus. ENT: Negative. NECK: Supple. There is no JVD. Carotids are equal. There is no bruit. There is no goiter. Trachea is central. There are no accessory muscles of respiration in use. LUNGS: There is better air entry in the right base. There are some decreased breath sounds in the right apex. Rest of the lungs show diminished air entry and prolonged expiration and hyperresonance. There is no dullness. There is no chest wall tenderness. HEART: S1 and S2 are heard. S1 is of normal intensity. There is no S3 gallop. There is no S4 gallop. There is a systolic murmur in the left sternal border of the apex. There is no rub. ABDOMEN: Soft, nontender. There is no hepatosplenomegaly. Bowel sounds are well heard. There are no tender areas or masses. EXTREMITIES: Femorals are diminished. There are no femoral bruits. Leg pulses are diminished. There is no pedal edema. There is no cyanosis or clubbing. There is no DVT or cellulitis. Capillary refill is normal. There is no calf tenderness. CENTRAL NERVOUS SYSTEM: The patient is conscious, awake, alert, oriented x3 with no focal deficit. PSYCHIATRIC: The patient's judgment and insight are intact. His affect is normal. INTAKE/OUTPUT: Apart from 1000 mL of fluid removed by thoracentesis of the right side, the patient's 24 hour intake is 1861 mL, output is 2000 mL. DIAGNOSTIC STUDIES: The patient's chest x-ray done shows interval decrease in right pleural effusion status post thoracentesis. No pneumothorax. IMPRESSION AND RECOMMENDATIONS: 1. SUPRAVENTRICULAR TACHYCARDIA, WHICH IS IRREGULAR WITH NARROW COMPLEXES. THE DIFFERENTIAL DIAGNOSIS IS ATRIAL FIBRILLATION WITH RAPID VENTRICULAR RESPONSE VERSUS MULTIPLE ATRIAL TACHYCARDIA. At present, the patient is in sinus rhythm. Recommendation: Continue Lasix at 40 mg p.o. daily. Continue lisinopril and metoprolol at 25 mg p.o. q. 6 hours. NOTE: Also, the patient is on midodrine for hypotension. The patient's Cardizem drip has been discontinued. 2. HYPOTENSION WITH SOME DEGREE OF RESPONSE TO MIDODRINE. Continue midodrine. 3. CONGESTIVE HEART FAILURE DUE TO ACUTE ON CHRONIC SYSTOLIC HEART FAILURE, AT PRESENT SEEMS TO BE COMPENSATED. The patient is on Lasix, Zaroxolyn, and also on DIAMOND inhibitor and ARB. 4. CARDIOMYOPATHY WITH SEVERELY REDUCED LV EJECTION FRACTION. Treatment as mentioned above. 5. PNEUMONIA WITH INFILTRATE RIGHT UPPER LOBE AND RIGHT MIDDLE LOBE AND RIGHT LOWER LOBE WITH A RIGHT PLEURAL EFFUSION STATUS POST THORACENTESIS. Await pleural fluid analysis. Continue antibiotics and respiratory treatments. 6. COPD WITH ACUTE EXACERBATION. At present, acute exacerbation is resolved, patient's COPD back to baseline. Continue anti-COPD medication and continue antibiotics and steroids. 7. HISTORY OF CORONARY ARTERY DISEASE, HISTORY OF [place]. No definite cardiac workup. The patient has no anginal symptoms. Later would recommend that the patient have an IV Lexiscan Cardiolite stress test. Also, would repeat the patient's echo in about 3 months from the last echo, and if it is still 35% or below, then would recommend the patient for AICD placement. This has been discussed with the patient. NOTE: 30 minutes spent on the patient with more than 50% of the time spent in direct patient care. His medications have been reviewed. Also, discussed with the hospitalist taking care of the patient in coordination of care and management plan *------* after discussions with them. NOTE: More than 50% of the time was spent on this direct patient care. This patient still requires highly complex medical decision making. DICTATING PHYSICIAN: EMMANUEL PEREZ M.D. [id number] PHY#: [id number] ID: [id number] JOB#: [id number] ACCT: [id number] cc: >
[2017-05-09] MEDS: LANSOPRAZOLE 30 MG TAB.RAP.DR PO SCH (05:10)
[2017-05-09] MEDS: MIDODRINE HCL 5 MG TABLET PO SCH ×3 (05:11→15:17)
[2017-05-09] MEDS: METOPROLOL TARTRATE 25 MG TABLET PO SCH ×4 (05:11→23:41)
[2017-05-09] MEDS: CLINDAMYCIN HCL 150 MG CAPSULE PO SCH ×4 (05:11→23:42)
[2017-05-09 06:16] LABS: ANION GAP 9 (5-19); BLOOD UREA NITROGEN 40 mg/dL (7-20); CALCIUM 9.7 mg/dL (8.4-10.2); CARBON DIOXIDE 33 mmol/L (22-30); CHLORIDE 96 mmol/L (98-107); CREATININE RESULT 0.95 mg/dL (0.52-1.25); GLUCOSE 129 mg/dL (75-110); POTASSIUM 3.9 mmol/L (3.6-5.0); SODIUM 138.2 mmol/L (137-145)
[2017-05-09 06:23] LABS: HEMATOCRIT 45.1 % (37.9-51.0); HEMOGLOBIN 14.2 g/dL (13.5-17.0); HGB HCT DIFFERENCE -2.5; MEAN CORPUSCULAR HEMOGLOBIN 25.7 pg (27.0-33.4); MEAN CORPUSCULAR HGB CONC 31.5 g/dL (32.0-36.0); MEAN CORPUSCULAR VOLUME 82 fl (80-97); RED BLOOD COUNT 5.53 10^6/uL (4.35-5.55); RED CELL DISTRIBUTION WIDTH 17.8 % (11.5-14.0); WHITE BLOOD COUNT 17.6 10^3/uL (4.0-10.5)
[2017-05-09] MEDS: ENOXAPARIN SODIUM INJ 40 MG/0.4 ML DISP.SYRIN SUBCUT SCH (09:35)
[2017-05-09] MEDS: PREDNISONE 20 MG TABLET PO SCH (09:37)
[2017-05-09] MEDS: LEVOFLOXACIN 750 MG TABLET PO SCH (09:37)
[2017-05-09] MEDS: ASPIRIN 81 MG TABLET, ENT COATED PO SCH (09:38)
[2017-05-09] MEDS: FUROSEMIDE 40 MG TABLET PO SCH (09:38)
[2017-05-09] MEDS: LISINOPRIL 5 MG TABLET PO SCH (09:39)
[2017-05-09] MEDS: DOCUSATE SODIUM 100 MG CAPSULE PO SCH (09:40)
[2017-05-09] MEDS: BUDESONIDE/FORMOTEROL 160-4.5 MCG 60 PUFF/6 GM MDI IH SCH ×2 (09:40→21:02)
[2017-05-09] MEDS: TIOTROPIUM BROMIDE DPI 5 CAP/KIT (18 MCG/CAP) IH SCH (11:09)
[2017-05-09] MEDS ORDERED: MIDODRINE HCL 5 MG TABLET PO ONE (14:20)
--- NOTE | 2017-05-09 14:44 | PDOC PROGRESS REPORT ---
Subjective Progress Note for:: 05/09/17 Subjective:: Patient denies any complaints Physical Exam Vital Signs: Temp Pulse Resp BP Pulse Ox 98.3 F 101 H 20 86/60 L 91 L 05/09/17 12:00 05/09/17 12:00 05/09/17 12:00 05/09/17 12:00 05/09/17 12:00 Pulse Oximeter Continuous Start: 05/03/17 14: 25 Freq: RTQ4 Status: Complete Document 05/08/17 08:00 LDA (Rec: 05/08/17 08:19 LDA [email or web address]) Pulse Oximetry Assessment Equipment Usage Equipment Discontinued Continuous SpO2 Machine # 7 Intake & Output 05/08/17 05/09/17 05/10/17 06:59 06:59 06:59 Intake Total 1861 1287 340 Output Total 2100 1225 Balance -239 62 340 Weight 82.3 kg 80 kg General appearance: PRESENT: no acute distress Eye exam: PRESENT: conjunctiva pink. ABSENT: scleral icterus Mouth exam: PRESENT: moist, tongue midline Neck exam: ABSENT: JVD Respiratory exam: PRESENT: rales - Left basilar rales. ABSENT: rhonchi, wheezes Cardiovascular exam: PRESENT: RRR. ABSENT: diastolic murmur, rubs, systolic murmur GI/Abdominal exam: PRESENT: normal bowel sounds, soft. ABSENT: distended, guarding, mass, organolmegaly, rebound, tenderness Extremities exam: ABSENT: calf tenderness, clubbing, pedal edema Neurological exam: PRESENT: alert, awake, oriented to person, oriented to place , oriented to time, oriented to situation, CN II-XII grossly intact. ABSENT: motor sensory deficit Psychiatric exam: PRESENT: appropriate affect Skin exam: PRESENT: dry, intact, warm. ABSENT: cyanosis, rash Results Laboratory Results: 05/09/17 05:06 05/09/17 05:06 05/08/17 05/08/17 05/09/17 09:50 09:50 05:06 WBC 17.6 H RBC 5.53 Hgb 14.2 Hct 45.1 MCV 82 MCH 25.7 L MCHC 31.5 L RDW 17.8 H Plt Count 518 H Sodium Potassium Chloride Carbon Dioxide Anion Gap BUN Creatinine Est GFR ( Amer) Est GFR (Non-Af Amer) Glucose Calcium Fluid Total Protein 3.4 Fluid LDH 509 05/09/17 05:06 WBC RBC Hgb Hct MCV MCH MCHC RDW Plt Count Sodium 138.2 Potassium 3.9 Chloride 96 L Carbon Dioxide 33 H Anion Gap 9 BUN 40 H Creatinine 0.95 Est GFR ( Amer) > 60 Est GFR (Non-Af Amer) > 60 Glucose 129 H Calcium 9.7 Fluid Total Protein Fluid LDH 05/03/17 05/03/17 05/03/17 17:28 17:28 23:37 Creatine Kinase 58 48 L CK-MB (CK-2) 0.82 Troponin I 0.026 05/03/17 05/04/17 05/04/17 23:37 05:32 05:32 Creatine Kinase 41 L CK-MB (CK-2) 1.01 0.99 Troponin I 0.030 0.032 Impressions: Chest CT 05/05/17 00:00 IMPRESSION: 1. Multicentric pneumonia in the right lung. 2. Large right pleural effusion. 3. Old compression changes are present at T11. Chest X-Ray 05/08/17 00:00 IMPRESSION: 1. There is no pneumothorax. 2. Findings as described. Thoracentesis Ultrasound 05/08/17 18:18 IMPRESSION: SUCCESSFUL THORACENTESIS USING ULTRASOUND GUIDANCE. Assessment & Plan - Diagnosis (1) Pleural effusion Is this a current diagnosis for this admission?: YesPlan: Patient underwent thoracentesis without difficulty. He reports his breathing is doing much better. He still has some inspiratory rales in the left base. Will watch for an additional 24 hours. Patient has congestive heart failure most likely as the cause. He does have pneumonia as well (2) Congestive heart failure Qualifiers: Congestive heart failure type: systolic Congestive heart failure chronicity: acute on chronic Qualified Code(s): I50.23 - Acute on chronic systolic (congestive) heart failure Is this a current diagnosis for this admission?: Yes (3) Abnormal liver function test Is this a current diagnosis for this admission?: YesPlan: Likely secondary to passive congestion of the liver (4) Atrial tachycardia, multifocal Is this a current diagnosis for this admission?: YesPlan: Is rate controlled at this time. (5) COPD (chronic obstructive pulmonary disease) Qualifiers: COPD type: unspecified COPD Qualified Code(s): J44.9 - Chronic obstructive pulmonary disease, unspecified Is this a current diagnosis for this admission?: YesPlan: No wheezing on exam today. (6) Elevated lactic acid level Is this a current diagnosis for this admission?: Yes (7) Pneumonia Qualifiers: Pneumonia type: due to unspecified organism Laterality: right Lung location: lower lobe of lung Qualified Code(s): J18.1 - Lobar pneumonia, unspecified organism Is this a current diagnosis for this admission?: YesPlan: On Levaquin and clindamycin. Will monitor for 24 more hours and discharge home if he remains stable overnight. - Time Time Spent with patient: 25-34 minutes
--- NOTE | 2017-05-09 19:43 | PROGRESS NOTE E ---
Progress Note NAME: ZEENAT MENDES : 1960 AGE: 57Y DATE: 05/09/2017 ROOM: 331 SUBJECTIVE: The patient denies any chest pain or discomfort. He still has some orthopnea but no PND. There are no anginal symptoms. The patient remains in sinus rhythm. There are no TIA or CVA symptoms. There is no pedal edema, and he is breathing much better. OBJECTIVE: GENERAL: On examination the patient is well built, appears to be chronically ill. VITAL SIGNS: He is afebrile with a temperature of 98 degrees Fahrenheit. Pulse is 95 beats per minute. Blood pressure 97/69. Respirations are 19 per minute. O2 saturations are 96% on 2 liters nasal cannula. HEAD: Atraumatic/normocephalic. EYES: Pupils are equal, round, regular, reactive to light and accommodation. Extraocular movements are normal. There is no conjunctival pallor. There is no scleral icterus. EARS, NOSE, AND THROAT: Negative. NECK: Supple. There is no JVD. Carotids are equal. There is no bruit. There is no goiter. Trachea central. There are no accessory muscles of respiration being used. LUNGS: There is better air entry in the right base but still some area of dullness and absent breath sounds in the lower most right base. There are some decreased breath sounds. The right apex of the lung showed diminished air entry, prolonged expiration, and hyperresonance. There is no chest wall tenderness. HEART: S1, S2 is heard. S1 is of normal intensity. There is no S3 gallop. There is no S4 gallop. There is a systolic murmur in the longstanding and the apex. There is no rub. ABDOMEN: Soft, nontender. There is no hepatosplenomegaly. Bowel sounds are well heard. There are no tender areas or masses. EXTREMITIES: Femorals are diminished. There is no femoral bruit. Leg pulses are diminished. There is no pedal edema. There is no cyanosis or clubbing. There is no DVT or cellulitis. Capillary refill is normal. There is no calf tenderness. CENTRAL NERVOUS SYSTEM: The patient is conscious, awake, alert, oriented x3 with no focal deficits. PSYCHIATRIC: The patient's judgement and insight are intact. His affect is normal. FLUID BALANCE: The patient's 24-hour intake is 1287 mL, output is 1225 mL. DIAGNOSTIC DATA: The patient's white count is elevated at 17,600, hemoglobin is 14.2, hematocrit is 45.5, platelet count is 518,000. The patient's sodium is 138.2, potassium 3.9, chloride is 96, CO2 is 33, the patient's BUN is 40, creatinine is 0.95, GFR is greater than 60, his glucose is 129, calcium is 9.7. IMPRESSION: 1. SUPRAVENTRICULAR TACHYCARDIA WHICH IS IRREGULAR WITH NARROW COMPLEX. Differential diagnosis was atrial fibrillation with rapid ventricular response versus multifocal atrial tachycardia. At present, the patient is in sinus rhythm. Continue the patient on Lasix 40 mg p.o. daily. Continue lisinopril and metoprolol. Will continue the patient's midodrine as the patient's blood pressure is still low. We might have to increase the midodrine to 10 mg p.o. t.i.d. 2. HYPOTENSION. With some degree of response to midodrine but still requires maybe an increase in the midodrine dose. 3. CONGESTIVE HEART FAILURE DUE TO ACUTE ON CHRONIC SYSTOLIC HEART FAILURE, AT PRESENT SEEMS TO BE COMPENSATED. The patient is on Lasix, Zaroxolyn, and also DIAMOND inhibitor. 4. CARDIOMYOPATHY WITH SEVERELY REDUCED LV EJECTION FRACTION. Treatment as mentioned above. Would recommend repeating an echocardiogram 3 months from the time of prior echocardiogram which showed a decreased LV ejection fraction, and if it is still low at 35% or below, then would recommend that the patient be referred for AICD placement, but prior to that the patient said has no anginal symptoms but does have a history of coronary artery disease and old IA. Would recommend having a Lexiscan Cardiolite stress test. Will do that as an outpatient as soon as the patient recovers from pneumonia. 5. PNEUMONIA WITH INFILTRATE RIGHT UPPER LOBE AND RIGHT MIDDLE LOBE AND RIGHT LOWER LOBE, STATUS POST DRAINAGE OF A RIGHT PLEURAL EFFUSION WHICH IS AN EXUDATE AND NOT A TRANSUDATE. Will repeat a chest x-ray in the a.m. Continue antibiotics and respiratory treatments. 6. COPD. At present, acute exacerbation is resolved. Continue anti-COPD medication. 7. HISTORY OF CORONARY ARTERY DISEASE, HISTORY OF [place]. No definite cardiac workup. As mentioned earlier, would recommend that the patient have an IV Lexiscan Cardiolite stress test mentioned earlier. Depending on this, the patient will have a repeat echocardiogram to look for the LV ejection fraction improvement or deterioration or stagnant LV ejection fraction, in which case if the patient has a negative Cardiolite stress test and does not require catheterization, then would recommend that the patient be referred for AICD placement. Note 40 minutes were spent on this patient with more than 50% of the time spent on direct patient care. His medications have been reviewed and adjusted and also discussed with the other caregiving providers, and a management plan was put in place after discussion with other caregiving providers. Note, the patient continues to have conditions that make it imperative that there is highly complex medical decision making necessity. Will follow with you. DICTATING PHYSICIAN: EMMANUEL PEREZ M.D. [id number] PHY#: [id number] ID: [id number] JOB#: [id number] ACCT: [id number] cc:EMMANUEL PEREZ M.D. > MTDD
[2017-05-10] MEDS: METOPROLOL TARTRATE 25 MG TABLET PO SCH ×2 (05:08→12:24)
[2017-05-10] MEDS: CLINDAMYCIN HCL 150 MG CAPSULE PO SCH ×2 (05:09→12:23)
[2017-05-10] MEDS: LANSOPRAZOLE 30 MG TAB.RAP.DR PO SCH (05:10)
[2017-05-10] MEDS ORDERED: MIDODRINE HCL 5 MG TABLET PO SCH ×3 (06:00→15:00)
[2017-05-10 06:14] LABS: ABSOLUTE LYMPHOCYTES (AUTO) 1.3 10^3/uL (0.5-4.7); ABSOLUTE MONOCYTES (AUTO) 1.5 10^3/uL (0.1-1.4); ABSOLUTE NEUT (AUTO) 14.3 10^3/uL (1.7-8.2); BASOPHILS % (AUTO) 0.1 % (0-2); HEMATOCRIT 44.2 % (37.9-51.0); HEMOGLOBIN 14.3 g/dL (13.5-17.0); HGB HCT DIFFERENCE -1.3; LYMPHOCYTES % (AUTO) 7.4 % (13-45); MEAN CORPUSCULAR HGB CONC 32.4 g/dL (32.0-36.0); MEAN CORPUSCULAR VOLUME 80 fl (80-97); MONOCYTES % (AUTO) 8.5 % (3-13); RED BLOOD COUNT 5.51 10^6/uL (4.35-5.55); RED CELL DISTRIBUTION WIDTH 17.9 % (11.5-14.0)
[2017-05-10 06:32] LABS: ANION GAP 12 (5-19); BLOOD UREA NITROGEN 42 mg/dL (7-20); CALCIUM 9.7 mg/dL (8.4-10.2); CARBON DIOXIDE 30 mmol/L (22-30); CHLORIDE 97 mmol/L (98-107); CREATININE RESULT 0.98 mg/dL (0.52-1.25); GLUCOSE 118 mg/dL (75-110); POTASSIUM 4.6 mmol/L (3.6-5.0); SODIUM 139.1 mmol/L (137-145)
[2017-05-10] MEDS: LEVOFLOXACIN 750 MG TABLET PO SCH (10:46)
[2017-05-10] MEDS: ASPIRIN 81 MG TABLET, ENT COATED PO SCH (10:46)
[2017-05-10] MEDS: FUROSEMIDE 40 MG TABLET PO SCH (10:47)
[2017-05-10] MEDS: PREDNISONE 20 MG TABLET PO SCH (10:47)
[2017-05-10] MEDS: DOCUSATE SODIUM 100 MG CAPSULE PO SCH (10:47)
[2017-05-10] MEDS: LISINOPRIL 5 MG TABLET PO SCH (10:48)
[2017-05-10] MEDS: ENOXAPARIN SODIUM INJ 40 MG/0.4 ML DISP.SYRIN SUBCUT SCH (10:49)
[2017-05-10] MEDS: BUDESONIDE/FORMOTEROL 160-4.5 MCG 60 PUFF/6 GM MDI IH SCH (10:51)
[2017-05-10] MEDS: TIOTROPIUM BROMIDE DPI 5 CAP/KIT (18 MCG/CAP) IH SCH (10:52)
[2017-05-10 12:53] VITALS: BP 90/60
--- NOTE | 2017-05-10 13:43 | PROGRESS NOTE E ---
Progress Note NAME: ZEENAT MENDES : 1960 AGE: 57Y DATE: 05/10/2017 ROOM: 331 SUBJECTIVE: The patient denies any chest pain or discomfort. There is no shortness of breath. There is no PND, orthopnea, or leg edema. There is no orthopnea. There are no palpitations. The patient remains in sinus rhythm. His blood pressure is good with the patient's midodrine having been increased to 10 mg p.o. 3 times a day at 6:00 a.m., 11:00 a.m., and 3:00 p.m. daily. The patient has no TIA or CVA symptoms. There is no cough or sputum production. The patient is afebrile. OBJECTIVE: GENERAL: On examination the patient is well built, appears to be chronically ill. VITAL SIGNS: He is afebrile with a temperature of 98.3 degrees Fahrenheit with pulse is 86 beats per minute (regular), blood pressure 106/82, respirations are 20 per minute, O2 sats are 100% on room air. HEAD: Atraumatic/normocephalic. EYES: Pupils are equal, round, regular, reactive to light and accommodation. Extraocular movements are normal. There is no conjunctival pallor. There is no scleral icterus. EARS, NOSE, AND THROAT: Negative. NECK: Supple. There is no JVD. Carotids are equal. There is no bruit. There is no goiter. Trachea central. There are no accessory muscles of respiration in use. LUNGS/CHEST: There is better air entry at the right base, but still some area of dullness and absent breath sounds in the lower-most right base, but these seem to be less and improved since yesterday's exam. The rest of the lungs showed diminished air entry, prolonged expiration on auscultation and on percussion, there is hyperresonance. There is no chest wall tenderness. HEART: S1, S2 is heard. S1 is of normal intensity. There is no S3 gallop. There is no S4 gallop. There is a systolic murmur in the left sternal border and the apex. There is no rub. ABDOMEN: Soft, nontender. There is no hepatosplenomegaly. Bowel sounds are well heard. There are no tender areas or masses. EXTREMITIES: Femorals are diminished. There is no femoral bruit. Leg pulses are diminished. There is no pedal edema. There is no cyanosis or clubbing. CENTRAL NERVOUS SYSTEM: The patient is conscious, awake, alert, oriented x3 with no focal deficits. PSYCHIATRIC: The patient's judgment and insight are intact. His affect is normal. FLUID BALANCE: The patient's 24-hour intake is 1,030 mL; output is 1,275 mL. DIAGNOSTIC DATA: The patient's white count is 17,000; hemoglobin is 14.3; hematocrit is 44.2; platelet count is 578,000. The patient's sodium is 139, potassium 4.6, chloride is 97, CO2 is 30, the patient's BUN is 42, creatinine is 0.98, GFR is greater than 60, his glucose is 118, calcium is 9.7. IMPRESSION: 1. SUPRAVENTRICULAR TACHYCARDIA. THE DIFFERENTIAL DIAGNOSIS IS ATRIAL FIBRILLATION WITH RAPID VENTRICULAR RESPONSE VERSUS MULTIFOCAL ATRIAL TACHYCARDIA. AT PRESENT, THE PATIENT IS IN SINUS RHYTHM. Continue the patient on lisinopril and metoprolol. 2. HYPOTENSION. Blood pressure much improved on midodrine 10 mg 3 times a day as mentioned earlier. Would continue this as well. 3. CONGESTIVE HEART FAILURE DUE TO ACUTE ON CHRONIC SYSTOLIC HEART FAILURE, AT PRESENT SEEMS TO BE COMPENSATED. The patient is on Lasix, Zaroxolyn, and also DIAMOND inhibitor. 4. CARDIOMYOPATHY WITH SEVERELY REDUCED LV EJECTION FRACTION. Would recommend getting a repeat echo in 3 months, and if the EF is 35% or below, then would recommend that the patient have an AICD placement, but that is if the patient does not require revascularization. In view of the history of coronary artery disease and history of AK in the past, would recommend that the patient, once his lung condition resolves and goes back to baseline, then would recommend getting an IV Lexiscan Cardiolite stress test. 5. PNEUMONIA WITH INFILTRATES OF RIGHT UPPER LOBE AND RIGHT MIDDLE LOBE STATUS POST THORACENTESIS, WHICH SHOWED THAT THE PLEURAL FLUID IS AN EXUDATE. Continue antibiotics. Continue respiratory treatments. 6. COPD. AT PRESENT, ACUTE EXACERBATION IS RESOLVED. Continue anti-COPD medication. 7. HISTORY OF CORONARY ARTERY DISEASE, HISTORY OF AK. As mentioned earlier, once the patient's lung condition resolves and the patient's lung condition goes back to baseline, then would recommend that the patient have an IV Lexiscan Cardiolite stress test as an outpatient. Note, 30 minutes spent on this patient with more than 50% of the time spent on direct patient care and also discussions with the patient regarding the stress test and also a repeat echo at 3 months and if the EF is 35% or below, then would require a referral to build automation engineer for possible AICD placement that is if the patient does not end up having revascularization. Note, the patient's medications have been reviewed and also discussed with the other caregiving providers on the case and coordination of care was done. This, at present, involved moderately complex medical decision making. Will follow the patient. The patient desires to follow up with me. Hence, the patient was given my office number and my cell phone number. Discussed with the hospitalist. Will sign off the case. Thanking you. DICTATING PHYSICIAN: EMMANUEL PEREZ M.D. [id number] [id number]#: [id number] ID: [id number] JOB#: [id number] ACCT: [id number] cc: >
--- NOTE | 2017-05-10 14:32 | PDOC DISCHARGE SUMMARY ---
General - Admit/Disc Date/PCP Admission Date/Primary Care Provider: 05/03/17 14:24 SULTANA SOLOMON, Discharge Date: 05/10/17 - Discharge Diagnosis (1) Pleural effusion Is this a current diagnosis for this admission?: YesSummary: Status post thoracentesis. (2) Congestive heart failure Is this a current diagnosis for this admission?: YesSummary: Acute on chronic systolic congestive heart failure. (3) Abnormal liver function test Is this a current diagnosis for this admission?: Yes (4) Atrial tachycardia, multifocal Is this a current diagnosis for this admission?: Yes (5) COPD (chronic obstructive pulmonary disease) Is this a current diagnosis for this admission?: Yes (6) Elevated lactic acid level Is this a current diagnosis for this admission?: Yes (7) Pneumonia Is this a current diagnosis for this admission?: YesSummary: Negative cultures. Being sent home on Levaquin for 7 additional days for a total of 14 days of antibiotics. Treated with a longer course of antibiotics because of the pleural effusion. - Additional Information Discharge Diet: Cardiac Discharge Activity: Activity As Tolerated, Balance Activity w/Rest, Weigh Daily Home Medications: Albuterol Sulfate [Albuterol Sulfate 2.5mg/3 mL] 1 vial IH RTQ6HP PRN 05/04/17 Albuterol Sulfate [Ventolin HFA MDI 18 GM] 2 puff IH Q6HP PRN 05/04/17 Budesonide/Formoterol Fumarate [Symbicort HFA 160-4.5 mcg Inhaler 6 gm] 2 puff IH DAILY 05/04/17 Ipratropium [place] [Atrovent 0.02% Neb 0.5 mg/2.5 ml Ampul] 0.5 mg IH RTQ6HP PRN 05/04/17 Tiotropium [place] [Spiriva Handihaler 18 mcg/dose (30 Dose)] 1 cap IH DAILY Clindamycin HCl [Cleocin 150 mg Capsule] 300 mg PO Q6 #28 capsule 05/10/17 Furosemide [Lasix 20 mg Tablet] 40 mg PO QAM #30 tablet 05/10/17 Levofloxacin [Levaquin 750 mg Tablet] 750 mg PO DAILY #7 tablet 05/10/17 Lisinopril [Prinivil 5 mg Tablet] 2.5 mg PO DAILY #20 tablet 05/10/17 Metoprolol Tartrate [Lopressor 25 mg Tablet] 25 mg PO Q6 #120 tablet 05/10/17 Midodrine HCl [Proamatine 5 mg Tablet] 10 mg PO DAILY@1100 #30 tablet 05/10/17 Midodrine HCl [Proamatine 5 mg Tablet] 10 mg PO DAILY@1500 #30 tablet 05/10/17 Midodrine HCl [Proamatine 5 mg Tablet] 10 mg PO Q6AM #30 tablet 05/10/17 Prednisone [Deltasone 20 mg Tablet] 20 mg PO DAILY #5 tablet 05/10/17 History of Present Illness History of Present Illness: ZEENAT MENDES JR is a 57 year old male history of systolic congestive heart failure who had recently been discharged from the hospital 4 days prior for pneumonia and COPD exacerbation. The patient had been improving until the night after discharge when the patient reports that his air conditioning became too cold and developed chills and worsening cough and wheezing. The patient also had worsening lower extremity edema and developed PND. Patient had a chest x-ray which showed an upper lobe infiltrate and found to be in congestive heart failure. Patient is admitted for treatment of pneumonia and congestive heart failure. Hospital Course Hospital Course: 57-year-old gentleman with systolic congestive heart failure who was admitted with pneumonia and worsening of his congestive heart failure. Patient was treated with IV Lasix as well as IV Levaquin. Patient was noted to have a pleural effusion and had a thoracentesis and the patient reports he has had dramatic improvement in his breathing since then. Patient had improvement in his breathing with thoracentesis and is probably a combination of a parapneumonic from infection as well as congestive heart failure. Because of this we have treated him with antibiotics and will do a total of 14 days of antibiotics in addition to his Lasix for the congestive heart component. He was evaluated by cardiology who recommended the patient start on Midodrine. He no longer had any orthopnea or PND and was very anxious to be discharged home. He will follow-up with his primary care doctor in 1-2 weeks. Also follow-up with cardiology in 1-2 weeks. Physical Exam Vital Signs: Temp Pulse Resp BP Pulse Ox 98.3 F 103 H 20 90/60 L 97 05/10/17 12:52 05/10/17 12:52 05/10/17 12:52 05/10/17 12:52 05/10/17 12:52 Pulse Oximeter Continuous Start: 05/03/17 14: 25 Freq: RTQ4 Status: Complete Document 05/08/17 08:00 LDA (Rec: 05/08/17 08:19 LDA [email or web address]) Pulse Oximetry Assessment Equipment Usage Equipment Discontinued Continuous SpO2 Machine # 7 Intake & Output 05/09/17 05/10/17 05/11/17 06:59 06:59 06:59 Intake Total 1287 1030 350 Output Total 1225 1275 Balance 62 -245 350 Weight 80 kg 80.2 kg General appearance: PRESENT: no acute distress Eye exam: PRESENT: conjunctiva pink. ABSENT: scleral icterus Mouth exam: PRESENT: moist, tongue midline Neck exam: ABSENT: JVD Respiratory exam: PRESENT: clear to auscultation flex. ABSENT: rales, rhonchi, wheezes Cardiovascular exam: PRESENT: RRR. ABSENT: diastolic murmur, rubs, systolic murmur GI/Abdominal exam: PRESENT: normal bowel sounds, soft. ABSENT: distended, guarding, mass, organolmegaly, rebound, tenderness Extremities exam: ABSENT: calf tenderness, clubbing, pedal edema Neurological exam: PRESENT: alert, awake, oriented to person, oriented to place , oriented to time, oriented to situation, CN II-XII grossly intact. ABSENT: motor sensory deficit Psychiatric exam: PRESENT: appropriate affect Skin exam: PRESENT: dry, intact, warm. ABSENT: cyanosis, rash Results Laboratory Results: 05/10/17 05:05 05/10/17 05:05 05/10/17 05/10/17 05:05 05:05 WBC 17.0 H RBC 5.51 Hgb 14.3 Hct 44.2 MCV 80 MCH 26.0 L MCHC 32.4 RDW 17.9 H Plt Count 578 H Seg Neutrophils % 84.0 H Lymphocytes % 7.4 L Monocytes % 8.5 Eosinophils % 0.0 Basophils % 0.1 Absolute Neutrophils 14.3 H Absolute Lymphocytes 1.3 Absolute Monocytes 1.5 H Absolute Eosinophils 0.0 Absolute Basophils 0.0 Sodium 139.1 Potassium 4.6 Chloride 97 L Carbon Dioxide 30 Anion Gap 12 BUN 42 H Creatinine 0.98 Est GFR ( Amer) > 60 Est GFR (Non-Af Amer) > 60 Glucose 118 H Calcium 9.7 05/03/17 05/03/17 05/03/17 17:28 17:28 23:37 Creatine Kinase 58 48 L CK-MB (CK-2) 0.82 Troponin I 0.026 05/03/17 05/04/17 05/04/17 23:37 05:32 05:32 Creatine Kinase 41 L CK-MB (CK-2) 1.01 0.99 Troponin I 0.030 0.032 Impressions: Chest CT 05/05/17 00:00 IMPRESSION: 1. Multicentric pneumonia in the right lung. 2. Large right pleural effusion. 3. Old compression changes are present at T11. Chest X-Ray 05/08/17 00:00 IMPRESSION: 1. There is no pneumothorax. 2. Findings as described. Thoracentesis Ultrasound 05/08/17 18:18 IMPRESSION: SUCCESSFUL THORACENTESIS USING ULTRASOUND GUIDANCE. Qualifiers PATEINT BEING DISCHARGED WITH ANY OF THE FOLLOWING DIAGNOSIS?: Heart Failure HF Pt being discharged on ACEI for LVEF less than 40%?: Yes HF Pt being discharged on ARBS for LVEF less than 40%?: No Reason(s) for not prescribing ARBS:: Not indicated HF Pt with Afib discharged with Warfarin?: No Reason(s) for not prescribing Warfarin:: Not indicated HF Pt discharged on evidence-based Beta Evie:: Yes Plan Discharge Plan: Is discharged home in stable condition. Will follow-up with cardiology and primary care in the next 1-2 weeks.
== END 2017-05-10 13:27 | disposition home or self-care (01) | DRG 291 ==
LOC: ER 09:22 → EH 13:57 → UNDOADMIN 13:57 → EH 14:24 → 3S 15:49 → EH 15:49
PROVIDERS: ADMIT Family Medicine; ATTEND Family Medicine
PROC: 0W993ZZ Drainage of Right Pleural Cavity, Percutaneous Approach (ICD-10-PCS; principal; 2017-05-08)
DX: I50.23 Acute on chronic systolic (congestive) heart failure (principal); J18.9 Pneumonia, unspecified organism; J90 Pleural effusion, not elsewhere classified; I47.1 Supraventricular tachycardia; J44.0 Chronic obstructive pulmonary disease with (acute) lower respiratory infection; I42.9 Cardiomyopathy, unspecified; J44.1 Chronic obstructive pulmonary disease with (acute) exacerbation; K21.9 Gastro-esophageal reflux disease without esophagitis; I25.10 Atherosclerotic heart disease of native coronary artery without angina pectoris; Z79.82 Long term (current) use of aspirin; Z79.899 Other long term (current) drug therapy; I25.2 Old myocardial infarction; Z87.891 Personal history of nicotine dependence
CPT/HCPCS: 32555; 36415; 71010; 71020; 71260; 80048; 80053; 81001; 82550; 82553; 82803; 83605; 83615; 83735; 83880; 84157; 84439; 84443; 84484; 85025; 85027; 85610; 85730; 87040; 87070; 87075; 87205; 88305; 88341; 88342; 89050; 93005; 93010; 94640; 94762; 96374; 96375; 99285; G8978-GP; G8979-GP; G8980-GP; J1160; J1650; J1940; J3370; J3490; J7512; J7620

== ENCOUNTER 2017-06-04 11:04 | Emergency (ER) | payer MEDICARE, MEDICAID ==
[2017-06-04] MEDS ORDERED: IPRATROPIUM/ALBUTEROL 0.5-2.5 MG/3 ML AMPUL NEB ONE ×2 (11:28→12:01)
--- NOTE | 2017-06-04 11:32 | ER Document Report ---
ED General - General Chief Complaint: General Weakness Stated Complaint: WEAKNESS Time Seen by Provider: 06/04/17 11:14 Mode of Arrival: Medic Information source: Patient Notes: This is a 57-year-old man with a history of CHF (status post recent right thoracentesis), COPD (no home oxygen) who presents to the emergency room with increased weakness, swelling of the lower legs. Patient actually states she has been breathing better since having the thoracentesis earlier in the month. EMS notes that when the patient was up and walking around he would desaturate to O2 sat 89%. TRAVEL OUTSIDE OF THE [place] IN LAST 30 DAYS: No - HPI Onset: Last week Onset/Duration: Gradual Quality of pain: No pain Severity: None Pain Level: Denies Associated symptoms: Leg swelling, Shortness of breath, Weakness. denies: Chest pain, Fever Exacerbated by: Movement Relieved by: Denies Similar symptoms previously: Yes Recently seen / treated by doctor: Yes - Related Data Allergies/Adverse Reactions: Penicillins Allergy (Verified 05/03/17 09:29) Home Medications: Current Home Medications Albuterol Sulfate [Ventolin 0.083% Neb 2.5 mg/3 ml Ampul] 2.5 mg NEB RTQ6HP PRN 06/04/17 [History] Albuterol Sulfate [Ventolin HFA MDI 18 GM] 2 puff IH Q6HP PRN 06/04/17 [History] Budesonide/Formoterol Fumarate [Symbicort Hfa 160-4.5 Mcg Inhaler 6 gm] 2 puff IH DAILY 06/04/17 [History] Furosemide [Lasix] 40 mg PO QAM 06/04/17 [History] Ipratropium [place] [Atrovent 0.02% Neb 0.5 mg/2.5 ml Ampul] 0.5 mg NEB RTQ6 [History] Lisinopril [Prinivil 2.5 mg Tablet] 2.5 mg PO DAILY 06/04/17 [History] Metoprolol Tartrate [Lopressor 25 mg Tablet] 25 mg PO Q6 06/04/17 [History] Midodrine HCl 10 mg PO Q6AM 06/04/17 [History] Tiotropium [place] [Spiriva Handihaler 5 Cap/Kit (18 Mcg/Cap)] 1 cap IH DAILY [History] Past Medical History - General Information source: Patient - Social History Smoking Status: Former Smoker Cigarette use (# per day): No Chew tobacco use (# tins/day): No Frequency of alcohol use: None Drug Abuse: None Lives with: Family Family History: CAD, DM, Malignancy Patient has suicidal ideation: No Patient has homicidal ideation: No - Past Medical History Cardiac Medical History: Reports: Hx Congestive Heart Failure Pulmonary Medical History: Reports: Hx COPD Denies: Hx Tuberculosis Neurological Medical History: Reports: None Endocrine Medical History: Reports: None Renal/ Medical History: Reports: None Malignancy Medical History: Reports None GI Medical History: Reports: None Musculoskeltal Medical History: Reports Hx Arthritis Skin Medical History: Reports None Psychiatric Medical History: Reports: None Traumatic Medical History: Reports: None Infectious Medical History: Reports: None Past Surgical History: Reports: Hx Tonsillectomy, Other - thoracentesis - Immunizations Hx Diphtheria, Pertussis, Tetanus Vaccination: No - unk Review of Systems - Review of Systems Constitutional: denies: Chills, Fever EENT: No symptoms reported Cardiovascular: See HPI Respiratory: See HPI Gastrointestinal: No symptoms reported Genitourinary: No symptoms reported Male Genitourinary: No symptoms reported - Yes Musculoskeletal: See HPI Skin: No symptoms reported - I was Hematologic/Lymphatic: No symptoms reported - I worked on the right Neurological/Psychological: No symptoms reported Physical Exam - Vital signs Vitals: Resp 21 H 06/04/17 11:13 Notes: Physical exam: GENERAL: 57-year-old man, alert and oriented 3, mild respiratory distress. HEAD: Atraumatic, normocephalic. EYES: Pupils equal round and reactive to light, extraocular movements intact, sclera anicteric, conjunctiva are normal. ENT: TMs normal, nares patent, oropharynx clear without exudates. Moist mucous membranes. NECK: Normal range of motion, supple without lymphadenopathy or JVD. LUNGS: Scant wheezes bilaterally breath sounds clear to auscultation bilaterally and equal. No wheezes rales or rhonchi. HEART: Regular rate and rhythm without murmurs, rubs or gallops. ABDOMEN: Soft, normoactive bowel sounds. No tenderness to palpation. No guarding, no rebound. No masses appreciated. EXTREMITIES: 1+ edema bilaterally to the lower extremities, both lower extremities are the same size, good cap refill, good dorsal pedal pulse bilaterally. No calf tenderness. No erythema. NEUROLOGICAL: Cranial nerves II through XII grossly intact. Normal speech, normal gait. PSYCH: Normal mood, normal affect. SKIN: Warm, Dry, normal turgor, no rashes or lesions noted. Course - Re-evaluation Re-evalutation: 06/04/17 14:48 I discussed the results of the x-ray with the patient. It does show a pneumonia and I have discussed with him that I would like to admit him. At first he was okay and I spoke to Dr. Buchanan who is willing to admit the patient. However, later the patient and said that he is absolutely not wanting to come in. Patient seems to be a good historian promises that he will come back if he gets worsening symptoms but he is adamant against admission at this time. - Vital Signs Vital signs: Temp Pulse Resp BP Pulse Ox 98.6 F 96 32 H 116/88 H 100 06/04/17 18:23 06/04/17 11:14 06/04/17 18:00 06/04/17 16:03 06/04/17 17:00 - Laboratory Result Diagrams: 06/04/17 11:13 06/04/17 11:13 Laboratory results interpreted by me: 06/04/17 06/04/17 06/04/17 11:13 11:13 11:13 Hgb 12.2 L Hct 36.4 L RDW 21.7 H Band Neutrophils % 2 L BUN 21 H Creatinine 1.42 H Est GFR (Non-Af Amer) 51 L Alkaline Phosphatase 132 H Creatine Kinase 37 L NT-Pro-B Natriuret Pep 71722 H - Diagnostic Test Radiology reviewed: Image reviewed, Reports reviewed - Chest x-ray shows a right -sided pneumonia - EKG Interpretation by Me Rate: Normal Rhythm: NSR - EKG shows normal sinus rhythm with a ventricular rate of 93, left anterior hemiblock, poor R-wave progression. Discharge - Discharge Clinical Impression: Pneumonia Condition: Stable Disposition: HOME, SELF-CARE Instructions: Pneumonia ([facility]) Additional Instructions: Recommendations: Rest, continue current medicines. Start the antibiotics tomorrow morning (you were given today's dose in the ER by IV). As we discussed, I did want to admit you to the hospital, return to the emergency room for any worsening breathing or any concerns or getting worse. Prescriptions: Levofloxacin [Levaquin 500 mg Tablet] 500 mg PO DAILY #10 tablet Referrals: CECE MASON MD [Primary Care Provider] - Follow up as needed
[2017-06-04 11:42] LABS: HEMATOCRIT 36.4 % (37.9-51.0); HEMOGLOBIN 12.2 g/dL (13.5-17.0); HGB HCT DIFFERENCE 0.2; MEAN CORPUSCULAR HEMOGLOBIN 27.7 pg (27.0-33.4); MEAN CORPUSCULAR HGB CONC 33.5 g/dL (32.0-36.0); MEAN CORPUSCULAR VOLUME 83 fl (80-97); RED CELL DISTRIBUTION WIDTH 21.7 % (11.5-14.0); WHITE BLOOD COUNT 7.7 10^3/uL (4.0-10.5)
[2017-06-04 11:50] LABS: ALANINE AMINOTRANSFERASE 25 U/L (21-72); ALBUMIN 3.9 g/dL (3.5-5.0); ALKALINE PHOSPHATASE 132 U/L (38-126); ANION GAP 15 (5-19); ASPARTATE AMINO TRANSFERASE 25 U/L (17-59); BILIRUBIN,DIRECT 0.4 mg/dL (0.0-0.4); BILIRUBIN,TOTAL 1.3 mg/dL (0.2-1.3); BLOOD UREA NITROGEN 21 mg/dL (7-20); CALCIUM 9.6 mg/dL (8.4-10.2); CARBON DIOXIDE 23 mmol/L (22-30); CHLORIDE 104 mmol/L (98-107); CREATINE KINASE 37 U/L (55-170); CREATININE RESULT 1.42 mg/dL (0.52-1.25); GLUCOSE 93 mg/dL (75-110); POTASSIUM 4.1 mmol/L (3.6-5.0); TOTAL PROTEIN 7.4 g/dL (6.3-8.2)
[2017-06-04 12:02] LABS: CREATINE KINASE MB 0.75 ng/mL (<4.55); TROPONIN I < 0.012 ng/mL
[2017-06-04 12:04] LABS: BAND NEUTROPHILS % (MANUAL) 2 % (3-5); BASOPHILS % (MANUAL) 0 % (0-2); EOSINOPHILS % (MANUAL) 0 % (0-6); LYMPHOCYTES % (MANUAL) 27 % (13-45); NUCLEATED RED BLOOD CELLS 5 /100 WBC (0); TOTAL CELLS COUNTED 100
[2017-06-04 12:07] LABS: ANISOCYTOSIS 2+; HYPOCHROMASIA 1+; OVALOCYTES SLIGHT; PLATELET CLUMPS PRESENT; POIKILOCYTOSIS 1+; POLYCHROMASIA SLIGHT; TARGET CELLS SLIGHT
--- NOTE | 2017-06-04 12:31 | RADIOLOGY REPORT (SQ) ---
EXAM DESCRIPTION: CHEST SINGLE VIEW COMPLETED DATE/TIME: 06/04/2017 11:49 am REASON FOR STUDY: sob COMPARISON: 05/08/2017 EXAM PARAMETERS: NUMBER OF VIEWS: One view. TECHNIQUE: Single frontal radiographic view of the chest acquired. RADIATION DOSE: NA LIMITATIONS: None. FINDINGS: LUNGS AND PLEURA: Persistent airspace disease in the right upper and lower lobes and later al segment of the middle lobe. Left lung is clear. MEDIASTINUM AND HILAR STRUCTURES: Stable. HEART AND VASCULAR STRUCTURES: Stable cardiomegaly. BONES: No acute findings. HARDWARE: None in the chest. OTHER: No other significant finding. IMPRESSION: Right lobar pneumonia. TECHNICAL DOCUMENTATION: JOB ID: [id number]
[2017-06-04] MEDS ORDERED: LEVOFLOXACIN 500 MG/D5W RTU 100 ML IV ONE (14:11)
[2017-06-04] MEDS ORDERED: FUROSEMIDE INJ/PF 40 MG/4 ML SDV IV ONE (14:46)
[2017-06-04 18:21] VITALS: BP 116/88
--- NOTE | 2017-06-05 03:32 | EKG REPORT ---
SEVERITY:- ABNORMAL ECG - SINUS RHYTHM PROBABLE LEFT ATRIAL ABNORMALITY LEFT ANTERIOR FASCICULAR BLOCK NONSPECIFIC T ABNORMALITIES, LATERAL LEADS PROLONGED QT INTERVAL : Confirmed by: Sandi Alan MD 05-Jun-2017 03:31:34
== END 2017-06-04 18:30 | disposition home or self-care (01) ==
LOC: ER 11:04
DX: J44.0 Chronic obstructive pulmonary disease with (acute) lower respiratory infection (principal); J18.9 Pneumonia, unspecified organism; R53.1 Weakness; R60.0 Localized edema; Z98.890 Other specified postprocedural states; Z88.0 Allergy status to penicillin; Z87.891 Personal history of nicotine dependence
CPT/HCPCS: 93005; 94640 ×2; 99285; 96375; 96365; 36415; 87040; 82553; 82550; 85025; 80053; 84484; 83880; 71010; 93010; J1956; J1940; A9270; J7620

== ENCOUNTER 2017-06-06 11:30 | Inpatient (IN) | payer MEDICARE, MEDICAID ==
--- NOTE | 2017-06-06 11:46 | ER Document Report ---
ED General - General Stated Complaint: SHORTNESS OF BREATH Time Seen by Provider: 06/06/17 11:42 Mode of Arrival: Medic Information source: Patient Notes: 57-year-old male who was diagnosed with pneumonia refused to be admitted a few days prior presents with complains of not feeling well shakes. Patient denies any vomiting is noted to have a left facial droop which is new in onset TRAVEL OUTSIDE OF THE [place] IN LAST 30 DAYS: No - HPI Onset: Last week Onset/Duration: Persistent Quality of pain: Achy Severity: Mild Pain Level: 1 Associated symptoms: Productive cough, Fever, Shortness of breath Exacerbated by: Denies Relieved by: Denies Similar symptoms previously: Yes Recently seen / treated by doctor: Yes - Related Data Allergies/Adverse Reactions: Penicillins Allergy (Verified 06/06/17 11:49) Home Medications: Current Home Medications Levofloxacin [Levaquin 500 mg Tablet] 500 mg PO DAILY 06/06/17 [History] Past Medical History - Social History Smoking Status: Current Every Day Smoker Cigarette use (# per day): Yes Chew tobacco use (# tins/day): No Smoking Education Provided: No Family History: CAD, DM, Malignancy - Past Medical History Cardiac Medical History: Reports: Hx Congestive Heart Failure Pulmonary Medical History: Reports: Hx COPD Denies: Hx Tuberculosis Renal/ Medical History: Denies: Hx Peritoneal Dialysis Musculoskeltal Medical History: Reports Hx Arthritis Past Surgical History: Reports: Hx Tonsillectomy, Other - thoracentesis - Immunizations Hx Diphtheria, Pertussis, Tetanus Vaccination: No - unk Review of Systems - Review of Systems Notes: REVIEW OF SYSTEMS: CONSTITUTIONAL : Denies fever, chills, or sweats. Denies recent illness. EENT: Denies eye, ear, throat, or mouth pain or symptoms. Denies nasal or sinus congestion or discharge. Denies throat, tongue, or mouth swelling or difficulty swallowing. CARDIOVASCULAR: Denies chest pain. Denies palpitations or racing or irregular heart beat. Denies ankle edema. RESPIRATORY: Admits to cough shortness of breath GASTROINTESTINAL: Denies abdominal pain or distention. Denies nausea, vomiting , or diarrhea. Denies blood in vomitus, stools, or per rectum. Denies black, tarry stools. Denies constipation. GENITOURINARY: Denies difficulty urinating, painful urination, burning, frequency, blood in urine, or discharge. MUSCULOSKELETAL: Denies back or neck pain or stiffness. Denies joint pain or swelling. SKIN: Denies rash, lesions or sores. HEMATOLOGIC : Denies easy bruising or bleeding. LYMPHATIC: Denies swollen, enlarged glands. NEUROLOGICAL: Generalized weakness PSYCHIATRIC: Denies anxiety or stress. Denies depression, suicidal ideation, or homicidal ideation. ALL OTHER SYSTEMS REVIEWED AND NEGATIVE. Dictation was performed using [employer] voice recognition software PHYSICAL EXAMINATION: GENERAL: Overall ill-appearing male in no acute distress HEAD: Atraumatic, normocephalic. EYES: Pupils equal round and reactive to light, extraocular movements intact, sclera anicteric, conjunctiva are normal. ENT: Nares patent, oropharynx clear without exudates. Moist mucous membranes. NECK: Normal range of motion, supple without lymphadenopathy LUNGS: Rhonchorous throughout HEART: Tachycardic ABDOMEN: Soft, nontender, nondistended abdomen. No guarding, no rebound. No masses appreciated. Musculoskeletal: Normal range of motion, no pitting or edema. No cyanosis. NEUROLOGICAL: Left facial droop noted time of onset unclear, aphasic no other deficits noted PSYCH: Normal mood, normal affect. SKIN: Warm, Dry, normal turgor, no rashes or lesions noted. Physical Exam - Vital signs Vitals: Resp Pulse Ox 27 H 98 06/06/17 11:34 06/06/17 11:34 Course - Re-evaluation Re-evalutation: 06/06/17 11:46 Patient is septic and hypoxic however interestingly he has a left facial droop unclear time of onset for this imaging pending 06/06/17 11:47 06/06/17 13:38 - Vital Signs Vital signs: Temp Pulse Resp BP Pulse Ox 100.1 F 38 H 121/95 H 99 06/06/17 12:22 06/06/17 13:25 06/06/17 13:25 06/06/17 13:25 - Laboratory Result Diagrams: 06/06/17 12:00 06/06/17 12:00 Laboratory results interpreted by me: 06/06/17 06/06/17 06/06/17 12:00 12:00 12:00 RBC 4.13 L Hgb 11.2 L Hct 33.5 L RDW 22.3 H Seg Neutrophils % 78.1 H Lymphocytes % 10.3 L VBG pH 7.51 H VBG pCO2 31.9 L Potassium 3.5 L Creatine Kinase 27 L Albumin 3.3 L Critical Care Note - Critical Care Note Total time excluding time spent on procedures (mins): 33 Comments: minutes of critical care time spent in direct contact evaluating and reevaluating the patient, treating symptoms, reviewing labs and studies and speaking with family and consultants excluding any procedures Discharge - Discharge Clinical Impression: Pleural effusion, Hypoxemia COPD (chronic obstructive pulmonary disease) Qualifiers: COPD type: unspecified COPD Qualified Code(s): J44.9 - Chronic obstructive pulmonary disease, unspecified Pneumonia Qualifiers: Pneumonia type: due to unspecified organism Laterality: right Lung location: lower lobe of lung Qualified Code(s): J18.1 - Lobar pneumonia, unspecified organism Congestive heart failure Qualifiers: Congestive heart failure type: unspecified congestive heart failure type Congestive heart failure chronicity: unspecified congestive heart failure chronicity Qualified Code(s): I50.9 - Heart failure, unspecified Sepsis Qualifiers: Sepsis type: sepsis due to unspecified organism Qualified Code(s): A41.9 - Sepsis, unspecified organism Admitting Provider: Hospitalist Unit Admitted: [facility]
--- NOTE | 2017-06-06 12:03 | RADIOLOGY REPORT (SQ) ---
EXAM DESCRIPTION: CT HEAD WITHOUT COMPLETED DATE/TIME: 06/06/2017 11:49 am REASON FOR STUDY: bed 11 stroke alert COMPARISON: None. TECHNIQUE: Axial images acquired through the brain without intravenous contrast. Images reviewed wi th bone, brain and subdural windows. Images stored on PACS. All CT scanners at this facility use dose modulation, iterative reconstruction, and/or weight based d osing when appropriate to reduce radiation dose to as low as reasonably achievable (ALARA). [facility]: Dose Right [facility]: CareDose [facility]: Dose Right [facility]: Teradose 4D [facility]: [employer] RADIATION DOSE: Up-to-date CT equipment and radiation dose reduction techniques were employed. CTDIv ol: 49.0 mGy. DLP: 881 mGy-cm. mGy. LIMITATIONS: None. FINDINGS: VENTRICLES: Normal size and contour. CEREBRUM: No masses. No hemorrhage. No midline shift. Normal salguero/white matter differentiation. N o evidence for acute infarction. CEREBELLUM: No masses. No hemorrhage. No alteration of density. No evidence for acute infarction. EXTRAAXIAL SPACES: No fluid collections. No masses. ORBITS AND GLOBE: No intra- or extraconal masses. Normal contour of globe without masses. CALVARIUM: No fracture. PARANASAL SINUSES: No fluid or mucosal thickening. SOFT TISSUES: No mass or hematoma. OTHER: No other significant finding. IMPRESSION: NORMAL BRAIN CT WITHOUT CONTRAST. COMMENT: Pertinent positive or negative findings of the imaging study reported as a CRITICAL EXAM bhanu EDGAR DO at11:58 on 06/06/2017. Category of Critical Exam: Stroke protocol. TECHNICAL DOCUMENTATION: JOB ID: [id number] Quality ID # [id number]: Final reports with documentation of one or more dose reduction techniques (e.g., Au tomated exposure control, adjustment of the mA and/or kV according to patient size, use of iterative reconstruction technique) 2010 [employer]- All Rights Reserved
--- NOTE | 2017-06-06 12:05 | RADIOLOGY REPORT (SQ) ---
EXAM DESCRIPTION: CHEST SINGLE VIEW COMPLETED DATE/TIME: 06/06/2017 11:53 am REASON FOR STUDY: bed 11 stroke alert COMPARISON: 06/04/2017. EXAM PARAMETERS: NUMBER OF VIEWS: One view. TECHNIQUE: Single frontal radiographic view of the chest acquired. RADIATION DOSE: NA LIMITATIONS: None. FINDINGS: LUNGS AND PLEURA: Diffuse infiltrate in the right lung essentially unchanged. Probable pl eural fluid in the fissure. Chronic interstitial changes and pleural thickening in the apices. MEDIASTINUM AND HILAR STRUCTURES: No masses. Contour normal. HEART AND VASCULAR STRUCTURES: Mild cardiomegaly. BONES: No acute findings. HARDWARE: None in the chest. OTHER: No other significant finding. IMPRESSION: NO CHANGE IN APPEARANCE OF THE CHEST. DIFFUSE INFILTRATE IN THE RIGHT LUNG AND RIGHT PL EURAL EFFUSION. TECHNICAL DOCUMENTATION: JOB ID: [id number]
[2017-06-06] MEDS ORDERED: LEVOFLOXACIN 750 MG/D5W RTU 150 ML IV ONE (12:13)
[2017-06-06 12:21] LABS: VENOUS BLOOD HCO3 24.6 mmol/L (20-32); VENOUS BLOOD PCO2 31.9 mmHg (35-63); VENOUS BLOOD PH 7.51 (7.30-7.42)
[2017-06-06 12:24] LABS: PROTHROMBIN TIME 15.4 SEC (11.4-15.4)
[2017-06-06 12:25] LABS: PARTIAL THROMBOPLASTIN TIME 28.4 SEC (23.5-35.8)
[2017-06-06 12:26] LABS: ABSOLUTE BASOPHILS # (AUTO) 0.1 10^3/uL (0.0-0.2); ABSOLUTE LYMPHOCYTES (AUTO) 0.9 10^3/uL (0.5-4.7); ABSOLUTE MONOCYTES (AUTO) 0.9 10^3/uL (0.1-1.4); ABSOLUTE NEUT (AUTO) 6.7 10^3/uL (1.7-8.2); BASOPHILS % (AUTO) 0.7 % (0-2); EOSINOPHILS % (AUTO) 0.2 % (0-6); HEMATOCRIT 33.5 % (37.9-51.0); HEMOGLOBIN 11.2 g/dL (13.5-17.0); HGB HCT DIFFERENCE 0.1; LYMPHOCYTES % (AUTO) 10.3 % (13-45); MEAN CORPUSCULAR HEMOGLOBIN 27.2 pg (27.0-33.4); MEAN CORPUSCULAR HGB CONC 33.5 g/dL (32.0-36.0); MEAN CORPUSCULAR VOLUME 81 fl (80-97); MONOCYTES % (AUTO) 10.7 % (3-13); RED BLOOD COUNT 4.13 10^6/uL (4.35-5.55); RED CELL DISTRIBUTION WIDTH 22.3 % (11.5-14.0); SEGMENTED NEUTROPHILS % (AUTO) 78.1 % (42-78); WHITE BLOOD COUNT 8.6 10^3/uL (4.0-10.5)
[2017-06-06 12:41] LABS: ALANINE AMINOTRANSFERASE 27 U/L (21-72); ALBUMIN 3.3 g/dL (3.5-5.0); ALKALINE PHOSPHATASE 120 U/L (38-126); ANION GAP 12 (5-19); ASPARTATE AMINO TRANSFERASE 18 U/L (17-59); BILIRUBIN,DIRECT 0.4 mg/dL (0.0-0.4); BILIRUBIN,TOTAL 0.9 mg/dL (0.2-1.3); BLOOD UREA NITROGEN 12 mg/dL (7-20); CALCIUM 9.1 mg/dL (8.4-10.2); CARBON DIOXIDE 22 mmol/L (22-30); CHLORIDE 107 mmol/L (98-107); CREATINE KINASE 27 U/L (55-170); CREATININE RESULT 1.09 mg/dL (0.52-1.25); GLUCOSE 110 mg/dL (75-110); POTASSIUM 3.5 mmol/L (3.6-5.0); SODIUM 141.4 mmol/L (137-145); TOTAL PROTEIN 6.3 g/dL (6.3-8.2)
[2017-06-06 13:07] LABS: CREATINE KINASE MB 0.41 ng/mL (<4.55)
[2017-06-06 13:13] LABS: TROPONIN I < 0.012 ng/mL
[2017-06-06] MEDS ORDERED: NORMAL SALINE 1000 ML 1,000 ML IV PRN (13:13)
[2017-06-06] MEDS ORDERED: LEVALBUTEROL HCL NEB 0.63 MG/3 ML AMPUL NEB PRN (13:46)
[2017-06-06] MEDS ORDERED: ONDANSETRON 4 MG TAB.RAPDIS PO PRN (13:46)
[2017-06-06] MEDS ORDERED: HEPARIN SOD (PORCINE) 5,000 UNIT/ML 1 ML SYRINGE SUBCUT SCH (14:00)
[2017-06-06] MEDS ORDERED: ACETAMINOPHEN 650 MG SUPP.RECT PR PRN (14:13)
[2017-06-06] MEDS ORDERED: VANCOMYCIN HCL 0 MG in DEXTROSE 5%-WATER 250 ML IV NR (14:30)
[2017-06-06] MEDS: NORMAL SALINE 1000 ML 1,000 ML IV PRN ×2 (14:36→17:23)
[2017-06-06] MEDS ORDERED: FUROSEMIDE INJ/PF 100 MG/10 ML SDV IV ONE (15:00)
[2017-06-06] MEDS ORDERED: POTASSI CL 20 MEQ/50 ML RIDER 50 ML IV ONE (15:30)
--- NOTE | 2017-06-06 16:18 | HISTORY AND PHYSICAL E ---
History and Physical NAME: ZEENAT MENDES : 1960 AGE: 57Y ADMITTED: 06/06/2017 ROOM: ED11 CODE STATUS: DO NOT RESUSCITATE/DO NOT INTUBATE. PRIMARY CARE PROVIDER: Dr. Abhinav Jenkins PLASTIC INSTALLER: Dr. Alan CHIEF COMPLAINT: Shortness of breath. HISTORY OF PRESENT ILLNESS: The patient is a 57-year-old male with a past medical history of chronic systolic congestive heart failure and multiple admissions. The patient is well known to the hospitalist service. The patient presented to the emergency department with a chief complaint of shortness of breath. Reportedly the patient came to the emergency department on 06/03/2017 due to similar symptoms. At that time, the patient was found to have pneumonia and was encouraged to stay for admission; however, the patient insisted upon discharge against medical advice. Upon presentation today, the patient was found to be tachypneic and hypoxic with a diffuse infiltrate on the right lung as well as a right pleural effusion. The patient has had a thoracentesis in the past. The patient was also noted to have a left-sided facial droop which was new for the patient. The patient was uncertain of when this started and CT of the head was unremarkable. The patient notes no other deficit. The patient was found to be tachycardiac with a heart rate of 110 and tachypneic with respirations in the 40s. The patient was found to be mildly hypertensive. The patient was provided supplemental O2 and was given a dose of Levaquin which he had been on outpatient and 2 L bolus of saline was started. The patient was referred to the hospitalist for admission and management. PAST MEDICAL HISTORY: 1. Chronic systolic congestive heart failure with an EF of 30-35%. 2. Chronic obstructive pulmonary disease. 3. RCR arthritis. PAST SURGICAL HISTORY: 1. Tonsillectomy. 2. Thoracentesis. ALLERGIES: PENICILLIN which caused a rash in childhood. HOME MEDICATIONS: 1. Levaquin 500 mg p.o. daily. 2. Spiriva 1 capsule inhalation daily. 3. Midodrine 10 mg p.o. every a.m. 4. Lopressor 25 mg p.o. q.6 hours. 5. Lisinopril 2.5 mg p.o. daily. 6. Atrovent 0.5 mg neb q.6 hours. 7. Lasix 40 mg p.o. every a.m. 8. Symbicort HFA 2 puffs inhalation daily. 9. Ventolin HFA 2 puffs inhalation q.6 hours p.r.n. 10. Ventolin 0.083% neb 2.5 mg neb q.6 hours p.r.n. SOCIAL HISTORY: The patient currently resides at home. The patient's surrogate decision maker is Elio Downing who may be reached at [phone]. The patient is a former smoker. He smoked approximately a pack a day for which he did for 35 years. The patient last smoked 4 years ago. The patient denies any consistent alcohol use. The patient does occasionally smoke marijuana but denies any other illicit drug use. FAMILY MEDICAL HISTORY: Positive for coronary artery disease, diabetes, and malignancy. The patient's mother is . She had brain cancer and diabetes. The patient's father is at age 42 of a brain aneurysm as well as coronary artery disease. The patient denies any other consistent history. REVIEW OF SYSTEMS: CONSTITUTIONAL: The patient denies any dizziness. The patient admits to fever, chills, weakness, and recent loss of appetite. INTEGUMENTARY: The patient denies any diaphoresis, rash, bruising, itching. HEENT: Denies any visual change, hearing loss, nasal drainage, sore throat. No headache. CARDIOVASCULAR: Denies any chest pain. The patient admits to shortness of breath, edema, heart palpitations. RESPIRATORY: Denies any sputum production or hemoptysis. Admits to a strong cough. GASTROINTESTINAL: Denies any nausea, vomiting, diarrhea, abdominal pain, bloating, hematemesis, constipation, melena, hematochezia, no epigastric pain. GENITOURINARY: He denies any hematuria, pyuria, or dysuria. MUSCULOSKELETAL: Denies any acute joint pains. NEUROLOGICAL: Denies any seizures, tremors, loss of consciousness. IMMUNOLOGICAL: Denies any shanthi bleeding or easy bruising. ENDOCRINE: Denies any recent weight changes. PSYCHIATRIC: No suicidal or homicidal ideations. Rest of review of the other organ systems is negative. PHYSICAL EXAMINATION: GENERAL: On examination, the patient is a frail, chronically ill appearing 57-year-old male who is awake, alert, and oriented to person, place, time, and situation. He is verbal. Speech is a little garbled who does appear to be in moderate respiratory distress. VITAL SIGNS: Temperature 100.1, pulse 112, respirations 37, blood pressure 114/86, oxygen saturation is 94% on 2 L nasal cannula. SKIN: Pale and dry. There is no rash. He is not diaphoretic. HEENT: Pupils are equal, round, reactive to light and accommodation. Conjunctivae are pale. Sclerae are not icterus. There is no mass lesion. Tongue is midline. NECK: Supple. There is no JVD. No palpable lymphadenopathy or thyromegaly. CARDIOVASCULAR: Heart is tachycardiac, regular. No rub. CHEST: Labored but even with rhonchus breath sounds noted in right lung field with CVA tenderness. BACK: There is no sacra edema. EXTREMITIES: No clubbing or cyanosis. The patient does have trace bilateral lower extremity pitting edema. All four extremities are warm and acyanotic. There are no peripheral signs of embolization. PSYCHIATRIC: Appropriate affect. Pleasant mood. DIAGNOSTICS: Lab values are as follows: Hematology obtained on 06/06/2017: WBCs are 8.0, hemoglobin is 11.2, hematocrit is 33.5, platelet count is 330,000. Coagulation obtained on 06/06/2017: PT is 15.4. INR is 1.14. Venous blood gas obtained on 06/06/2017: His pH is 7.51, pCO2 is 31.9, bicarb is 34. Chemistry obtained on 06/06/2017: Sodium is 141, potassium 3.5, chloride is 107, carbon dioxide 22, BUN 12, creatinine is 1.09, glucose 111, lactic acid is 1.4, calcium is 9.1, bilirubin is 0.9, AST 18, ALT is 27, alk phos 120, CK 27, CK-MB is 0.41, troponin is 0.012, total protein 6.3, albumin 3.3. Microbiology: Blood cultures obtained on 06/06/2017 are pending. IMPRESSION AND PLAN: 1. Pneumonia. Will cover the patient for HCAP given the patient's recent stay; however, there is concern for the patient's previous pleural effusion in the area of infiltrate and concern for empyema. Will obtain stat CTA of the chest and further recommendations to follow. 2. Chronic systolic congestive heart failure. Will reduce the patient's volume resuscitation to 2 L given the patient's poor EF. The patient does not appear to be volume depleted at this point. Will repeat chemistries at 1600 hours and follow. 3. Chronic obstructive pulmonary disease. Will continue the patient's home inhalers. 4. [id number] hypoxemic respiratory failure. This is secondary to the above. Will place the BiPAP at this time. Will start the patient on 10/13. The patient does not appear to be retaining at this time but has in the past and will follow. 5. Hypokalemia. This is mild. Will replete this. 6. Anemia. Will monitor the patient's hemoglobin. Further workup in an outpatient setting. 7. DVT prophylaxis. Will place the patient on subcutaneous heparin. 8. TIA. The patient denies other deficit other than a facial droop. Will proceed with aspirin, statin, and doppler. DISPOSITION: The patient is a DO NOT RESUSCITATE/DO NOT INTUBATE as the patient does wish for a natural . Will admit the patient to inpatient IMCU as the patient's expected length of stay will surpass 2 midnights. Time spent on this admission including assessment, plan, physical examination, patient education, and review of previous records is 50 minutes. DICTATING PHYSICIAN: TIM WHITEHEAD NP [id number] PHY#: [id number] ID: [id number] JOB#: [id number] ACCT: [id number] cc:KAYA BOLAND M.D., MICHAEL NP > MTDD
[2017-06-06 16:39] LABS: ANION GAP 10 (5-19); BLOOD UREA NITROGEN 11 mg/dL (7-20); CALCIUM 7.9 mg/dL (8.4-10.2); CARBON DIOXIDE 21 mmol/L (22-30); CHLORIDE 111 mmol/L (98-107); CREATININE RESULT 0.98 mg/dL (0.52-1.25); GLUCOSE 103 mg/dL (75-110); POTASSIUM 3.7 mmol/L (3.6-5.0); SODIUM 142.3 mmol/L (137-145)
[2017-06-06] MEDS: LEVALBUTEROL HCL NEB 0.63 MG/3 ML AMPUL NEB PRN (17:12)
[2017-06-06] MEDS: PIPERACILLIN SODIUM/TAZOBACTAM 4.5 GM in NORMAL SALINE 100 ML IV SCH ×2 (17:25→23:17)
--- NOTE | 2017-06-06 17:26 | RADIOLOGY REPORT (SQ) ---
EXAM DESCRIPTION: CTA CHEST COMPLETED DATE/TIME: 06/06/2017 4:45 pm REASON FOR STUDY: Dyspnea, hypoxia COMPARISON: 05/05/2017 TECHNIQUE: CT scan of the chest performed using helical scanning technique with dynamic intravenous contrast injection. Images reviewed with lung, soft tissue and bone windows. Reconstructed coronal and sagittal MPR images reviewed. Additional 3 dimensional post-processing performed to develop Maximal Intensity Projection images (ME P). All images stored on PACS. All CT scanners at this facility use dose modulation, iterative reconstruction, and/or weight based d osing when appropriate to reduce radiation dose to as low as reasonably achievable (ALARA). [facility]: Dose Right [facility]: CareDose [facility]: Dose Right [facility]: Teradose 4D [facility]: [employer] CONTRAST TYPE AND DOSE: contrast/concentration: Isovue 370.00 mg/ml; Total Contrast Delivered: 73.0 ml; Total Saline Delivered: 80.1 ml RENAL FUNCTION: Creatinine 1.1 BUN 12 RADIATION DOSE: Up-to-date CT equipment and radiation dose reduction techniques were employed. CTDIv ol: 10.1 - 26.3 mGy. DLP: 417 mGy-cm. . LIMITATIONS: None. FINDINGS: LUNGS AND PLEURA: There is a moderate right pleural effusion that is smaller than on the e arlier study. There is loculated fluid in the fissure on the right. Persistent infiltrates are seen in the right upper lobe, left upper lobe, and right middle lobe and right lower lobe. The overall a ppearance is of improvement since the earlier study. AORTA AND GREAT VESSELS: No aneurysm or dissection. HEART: No pericardial effusion. PULMONARY ARTERIES: Emboli are present in the left upper lobe pulmonary artery seen on axial images 5 0 through through 56, coronal image 51, and reformatted images 36 and 37 series 202. Pulmonary embol us is present in the right lower lobe pulmonary artery seen on axial images 86 through 95 and on janusz nal image its 71 through 73. HILAR AND MEDIASTINAL STRUCTURES: Multiple nonspecific pretracheal and precarinal nodes are present. Small shotty upper mediastinal nodes are present. HARDWARE: None in the chest. UPPER ABDOMEN: No significant findings. Limited exam. THYROID AND OTHER SOFT TISSUES: No masses. No adenopathy. BONES: No acute or significant finding. 3D MIPS: Confirm above findings. OTHER: No other significant finding. IMPRESSION: 1. Pulmonary emboli are identified in a left upper lobe pulmonary artery and a right lo wer lobe pulmonary artery. 2. Right pleural effusion that is improved since the earlier study. 3. Multicentric pulmonary infiltrates. TECHNICAL DOCUMENTATION: JOB ID: [id number] Quality ID # [id number]: Final reports with documentation of one or more dose reduction techniques (e.g., Au tomated exposure control, adjustment of the mA and/or kV according to patient size, use of iterative reconstruction technique) 2010 [employer]- All Rights Reserved
[2017-06-06] MEDS: VANCOMYCIN HCL 1,250 MG in DEXTROSE 5%-WATER 250 ML IV SCH (18:20)
--- NOTE | 2017-06-06 18:20 | EKG REPORT ---
SEVERITY:- ABNORMAL ECG - SINUS TACHYCARDIA PROBABLE LEFT ATRIAL ABNORMALITY LEFT ANTERIOR FASCICULAR BLOCK CONSIDER ANTEROSEPTAL INFARCT BORDERLINE T ABNORMALITIES, LATERAL LEADS BORDERLINE PROLONGED QT INTERVAL : Confirmed by: Eder Panda MD 06-Jun-2017 18:19:21
[2017-06-06] MEDS: METOPROLOL TARTRATE 25 MG TABLET PO SCH ×2 (18:22→21:23)
[2017-06-06] MEDS: ENOXAPARIN SODIUM INJ 100 MG/1 ML DISP.SYRIN SUBCUT SCH (19:24)
[2017-06-06] MEDS: FUROSEMIDE INJ/PF 40 MG/4 ML SDV IV SCH (21:22)
[2017-06-06] MEDS: ATORVASTATIN CALCIUM 80 MG TABLET PO SCH (21:23)
[2017-06-07] MEDS: METOPROLOL TARTRATE 25 MG TABLET PO SCH ×4 (02:12→20:41)
[2017-06-07] MEDS: VANCOMYCIN HCL 1,250 MG in DEXTROSE 5%-WATER 250 ML IV SCH ×2 (04:13→16:07)
[2017-06-07 05:17] LABS: HEMATOCRIT 34.8 % (37.9-51.0); HEMOGLOBIN 11.2 g/dL (13.5-17.0); HGB HCT DIFFERENCE -1.2; MEAN CORPUSCULAR HEMOGLOBIN 26.7 pg (27.0-33.4); MEAN CORPUSCULAR HGB CONC 32.2 g/dL (32.0-36.0); MEAN CORPUSCULAR VOLUME 83 fl (80-97); RED BLOOD COUNT 4.19 10^6/uL (4.35-5.55); RED CELL DISTRIBUTION WIDTH 22.5 % (11.5-14.0); WHITE BLOOD COUNT 11.2 10^3/uL (4.0-10.5)
[2017-06-07 05:45] LABS: ANION GAP 14 (5-19); BLOOD UREA NITROGEN 10 mg/dL (7-20); CALCIUM 8.6 mg/dL (8.4-10.2); CARBON DIOXIDE 23 mmol/L (22-30); CHLORIDE 106 mmol/L (98-107); CREATININE RESULT 1.06 mg/dL (0.52-1.25); GLUCOSE 123 mg/dL (75-110); MAGNESIUM 1.6 mg/dL (1.6-2.3); POTASSIUM 3.2 mmol/L (3.6-5.0); SODIUM 142.5 mmol/L (137-145)
[2017-06-07 06:00] LABS: APPEARANCE,URINE CLEAR; BILIRUBIN,URINE NEGATIVE (NEGATIVE); GLUCOSE, URINE NEGATIVE (NEGATIVE); KETONES,URINE NEGATIVE (NEGATIVE); LEUKOCYTE ESTERASE,URINE NEGATIVE (NEGATIVE); NITRITE,URINE NEGATIVE (NEGATIVE); PROTEIN,URINE NEGATIVE (NEGATIVE); URINE SPECIFIC GRAVITY 1.008; UROBILINOGEN,URINE NEGATIVE mg/dL (<2.0)
[2017-06-07] MEDS: MIDODRINE HCL 5 MG TABLET PO SCH (06:00)
[2017-06-07] MEDS ORDERED: (PENDING PHARMACY ID) (Midodrine Hcl [Midodrine Hcl] 10 MG) PO SCH (06:00)
[2017-06-07] MEDS: ENOXAPARIN SODIUM INJ 100 MG/1 ML DISP.SYRIN SUBCUT SCH ×2 (06:00→17:18)
[2017-06-07] MEDS: PIPERACILLIN SODIUM/TAZOBACTAM 4.5 GM in NORMAL SALINE 100 ML IV SCH ×4 (06:00→23:42)
[2017-06-07] MEDS: FUROSEMIDE INJ/PF 40 MG/4 ML SDV IV SCH (06:00)
[2017-06-07] MEDS: LEVALBUTEROL HCL NEB 0.63 MG/3 ML AMPUL NEB PRN ×2 (09:13→16:14)
[2017-06-07] MEDS: BUDESONIDE/FORMOTEROL 160-4.5 MCG 60 PUFF/6 GM MDI IH SCH (09:16)
[2017-06-07] MEDS: TIOTROPIUM BROMIDE DPI 5 CAP/KIT (18 MCG/CAP) IH SCH (09:19)
[2017-06-07] MEDS ORDERED: ASPIRIN 300 MG SUPP, RECTAL PR SCH (10:00)
[2017-06-07] MEDS ORDERED: POTASSI CL 20 MEQ/50 ML RIDER 20 MEQ/50 ML RTUPB IV ONE (10:00)
[2017-06-07] MEDS: ASPIRIN 81 MG TABLET, CHEWABLE PO SCH (10:45)
--- NOTE | 2017-06-07 10:58 | PROGRESS NOTE E ---
Progress Note NAME: ZEENAT MENDES : 1960 AGE: 57Y DATE: 06/07/2017 ROOM: 306 SUBJECTIVE: The patient is lying in bed. He is awake, alert. He has improved slightly in comparison to yesterday. The patient is not nearly as tachypneic, and the patient's pain has resolved. The patient does communicate that the BiPAP mask is irritating. Will give a trial of nasal cannula. The patient denies any nausea or belly pain. No chest pain. There have been no reported episodes of vomiting nor diarrhea, and the patient does not voice any other concerns at this time. REVIEW OF SYSTEMS: Full review of systems cannot be appreciated given the patient's mental status. MEDICATIONS: Medications have been reviewed. OBJECTIVE: GENERAL: The patient is a 57-year-old male who is awake, alert. He is oriented, but quite delayed, does not appear to be in acute distress. VITAL SIGNS: Temperature is 98.2, pulse 107, respirations 22, blood pressure is 96/68, oxygen saturation is 91% on BiPAP 12/8. SKIN: Pale, dry. There is no rash. He is not diaphoretic. HEENT: Pupils are equal, round, reactive to light and accommodation. Conjunctiva is pink. There is no JVP. CARDIOVASCULAR SYSTEM: Heart is regular. There is no rub. CHEST: Quite diminished, symmetrical, slightly labored, but overall improved in comparison to yesterday. ABDOMEN: Soft, nontender, nondistended. BACK: No CVA tenderness or sacral edema. EXTREMITIES: No clubbing, cyanosis, edema. Lower extremities are actually warm to the touch. PSYCHIATRIC: Quite flat affect. DIAGNOSTICS: Lab values are as follows: Hematology obtained on 06/07/2017: WBC is 11.2, hemoglobin is 11.2, hematocrit is 34.8, platelet count is 284,000. Chemistry obtained on 06/07/2017: Sodium is 142, potassium 3.2, chloride is 106, carbon dioxide 23, BUN 10, creatinine is 1.06. Glucose 123, calcium is 8.6, magnesium is 1.6. IMPRESSION AND PLAN: 1. ACUTE ON CHRONIC SYSTOLIC CONGESTIVE HEART FAILURE. The patient has received significant amount of volume resuscitations downstairs; however, since admission, the patient has diuresed 7 L. The patient appears optivolemic at this point. Therefore, will withhold IV fluids and diuresis today and monitor the patient's oral intake. 2. PNEUMONIA. Have covered the patient for H. cap given his recent admissions and will follow. 3. CHRONIC OBSTRUCTIVE PULMONARY DISEASE EXACERBATION. Will continue home inhalers as well as supplemental O2. 4. BILATERAL PULMONARY EMBOLI. The patient has been covered with Lovenox. 5. ACUTE ON CHRONIC HYPOXEMIC RESPIRATORY FAILURE. THIS IS SECONDARY TO ALL OF THE ABOVE. The patient has been on BiPAP. Will transition to nasal cannula today to see how the patient tolerates this. 6. HYPOKALEMIA. Will replete this. 7. ANEMIA. The patient's hemoglobin is relatively stable. Will monitor on outpatient basis. 8. TIA. The patient has no other deficit. His facial droop actually appears improved. Have continued with aspirin, statin, and will get a Doppler. 9. DVT PROPHYLAXIS. The patient is on subcu heparin. 10. SUSPICION FOR ATRIAL FIBRILLATION. Given the patient's home medications, the patient is unable to provide any significant history regarding this. Will attempt to obtain more information. In the meantime, the patient's blood pressures are on the soft side; however, will continue his midodrine as well as his Lopressor. DISPOSITION: The patient is a DNR/DNI as the patient wishes for a natural . Pending patient's symptomatology and diagnostic findings, will re-evaluate in the a.m. Time spent on this followup including assessment, plan, physical examination, patient education is 30 minutes. DICTATING PHYSICIAN: TIM WHITEHEAD NP [id number] PHY#: [id number] ID: [id number] JOB#: [id number] ACCT: [id number] cc: >
--- NOTE | 2017-06-07 15:35 | RADIOLOGY REPORT (SQ) ---
EXAM DESCRIPTION: CAROTID DOPPLER COMPLETED DATE/TIME: 06/07/2017 3:27 pm REASON FOR STUDY: TIA, facial droop COMPARISON: None. TECHNIQUE: Grayscale ultrasound, Doppler velocity and spectra, and color Doppler images acquired of the extra-cranial carotid and vertebral arteries. Images stored on PACS. LIMITATIONS: None. FINDINGS: RIGHT CAROTID CCA Velocities: Within normal limits. ICA Velocities Peak systolic 0.44 m/s. End diastolic 0.16 m/s. Proximal ICA/CCA peak systolic ratio 0.9. Normal waveforms. Heterogeneous irregular plaque. LEFT CAROTID CCA Velocities: Within normal limits. ICA Velocities Peak systolic 0.62 m/s. End diastolic 0.26 m/s. Proximal ICA/CCA peak systolic ratio 0.8. Normal waveforms. Heterogeneous irregular plaque. VERTEBRAL ARTERIES: Antegrade flow. Normal waveforms. SUBCLAVIAN ARTERIES: No finding. OTHER: No other significant finding. IMPRESSION: NO HEMODYNAMICALLY SIGNIFICANT STENOSIS. COMMENT: Quality ID #[id number]: Velocity criteria are extrapolated from the diameter data as defined by t he Society of Radiologists in Ultrasound Consensus Conference. Radiology 2003: 229; 340-346. TECHNICAL DOCUMENTATION: JOB ID: [id number]- All Rights Reserved
[2017-06-07 19:57] LABS: APPEARANCE,URINE CLOUDY; BILIRUBIN,URINE NEGATIVE (NEGATIVE); GLUCOSE, URINE NEGATIVE (NEGATIVE); KETONES,URINE NEGATIVE (NEGATIVE); LEUKOCYTE ESTERASE,URINE NEGATIVE (NEGATIVE); NITRITE,URINE NEGATIVE (NEGATIVE); PROTEIN,URINE 30 mg/dL (NEGATIVE); URINE SPECIFIC GRAVITY 1.024; UROBILINOGEN,URINE NEGATIVE mg/dL (<2.0)
[2017-06-07] MEDS: ATORVASTATIN CALCIUM 80 MG TABLET PO SCH (21:16)
[2017-06-08] MEDS: METOPROLOL TARTRATE 25 MG TABLET PO SCH ×3 (03:02→22:14)
[2017-06-08] MEDS: LEVALBUTEROL HCL NEB 0.63 MG/3 ML AMPUL NEB PRN ×2 (03:17→18:41)
[2017-06-08] MEDS: VANCOMYCIN HCL 1,250 MG in DEXTROSE 5%-WATER 250 ML IV SCH ×2 (03:55→17:02)
[2017-06-08 04:22] LABS: CREATININE RESULT 1.32 mg/dL (0.52-1.25)
[2017-06-08] MEDS: MIDODRINE HCL 5 MG TABLET PO SCH ×4 (05:50→18:30)
[2017-06-08] MEDS: ENOXAPARIN SODIUM INJ 100 MG/1 ML DISP.SYRIN SUBCUT SCH ×2 (05:50→18:30)
[2017-06-08] MEDS: PIPERACILLIN SODIUM/TAZOBACTAM 4.5 GM in NORMAL SALINE 100 ML IV SCH ×3 (05:50→19:06)
[2017-06-08] MEDS ORDERED: HYDROCORTISONE SOD SUCCINATE INJ/PF 250 MG/2 ML SDV IV ONE (08:17)
[2017-06-08] MEDS ORDERED: NORMAL SALINE 500 ML IV PRN (08:20)
[2017-06-08 09:05] LABS: ANION GAP 13 (5-19); BLOOD UREA NITROGEN 15 mg/dL (7-20); CALCIUM 8.4 mg/dL (8.4-10.2); CARBON DIOXIDE 27 mmol/L (22-30); CHLORIDE 102 mmol/L (98-107); CREATININE RESULT 1.31 mg/dL (0.52-1.25); GLUCOSE 130 mg/dL (75-110); POTASSIUM 3.2 mmol/L (3.6-5.0); SODIUM 142.1 mmol/L (137-145)
--- NOTE | 2017-06-08 09:13 | PROGRESS NOTE E ---
Progress Note NAME: ZEENAT MENDES : 1960 AGE: 57Y DATE: 06/08/2017 ROOM: 306 SUBJECTIVE: The patient is lying in bed. He is more awake and alert than he was yesterday. Patient admits to a headache. The patient has been afebrile. His blood pressures have been on the low side, but the patient's breathing overall is improved. The patient has been able to tolerate nasal cannula during the day, but did wear the BiPAP at night. The patient, unfortunately, is unable to articulate much. I do feel the patient has most likely had a CVA prior to presentation, but again, this would not change the patient's management at this time, and the patient is unable to voice any specific concerns at this time. REVIEW OF SYSTEMS: Rest of review of systems is negative. MEDICATIONS: Medications have been reviewed. OBJECTIVE: GENERAL: The patient is an unfortunate 57-year-old male who is awake, alert. He is oriented to person, place, time, and situation, a little delayed, does not appear to be in any acute distress. VITAL SIGNS: Temperature is 98.7, pulse 100, respirations 18, blood pressure is 89/67, oxygen saturation is 97% on BiPAP. SKIN: Warm and dry. No rash. Not diaphoretic. HEENT: Pupils equal, round, and reactive to light and accommodation. Conjunctiva is pink. No JVP. Feel the patient's left-sided facial droop has improved. CARDIOVASCULAR SYSTEM: Heart is regular. There is no murmur or rub. CHEST: Clear, symmetrical, unlabored at this time. ABDOMEN: Soft, nontender, nondistended. BACK: No CVA tenderness or sacral edema. EXTREMITIES: No clubbing, cyanosis, edema. PSYCHIATRIC: Flat affect. DIAGNOSTICS: Lab values are as follows: Hematology obtained on 06/07/2017: WBCs are 11.2, hemoglobin is 11.2, hematocrit is 34.8, platelet count is 284,000. Chemistry obtained on 06/08/2017: Creatinine is 1.32. The rest of the patient's chemistries are pending. IMPRESSION AND PLAN: 1. ACUTE ON CHRONIC SYSTOLIC AND DIASTOLIC CONGESTIVE HEART FAILURE. The patient has netted 7 L. Will withhold diuresis. The patient appears a little on the dry side today and actually give a half liter bolus and follow. 2. PNEUMONIA. Have covered the patient for HCAP given his recent admissions. Will follow. 3. CHRONIC OBSTRUCTIVE PULMONARY DISEASE EXACERBATION. Will continue home inhalers as well as supplemental O2. 4. BILATERAL PULMONARY EMBOLI. The patient is covered with Lovenox. 5. ACUTE ON CHRONIC HYPOXEMIC RESPIRATORY FAILURE. This is secondary to all of the above. Continue BiPAP as needed. He has tolerated transition to nasal cannula, though. 6. HYPOKALEMIA. Will replete this. Repeat labs are pending. 7. ANEMIA. The patient's hemoglobin is relatively stable. Will continue on outpatient basis. 8. TIA VERSUS CVA. Patient has no other deficit other than his facial droop, but it has improved. However, the patient's cognitive function is delayed. Will continue aspirin, statin. His Doppler was unremarkable, but will obtain an MRI for completion. 9. DVT PROPHYLAXIS. The patient is on subcu heparin. 10. SUSPICION FOR A-FIB. The patient does appear to be in sinus rhythm. However, given the patient's PE as well as overall pulmonary disease, do have suspicion for such. DISPOSITION: The patient is a DO NOT RESUSCITATE/DO NOT INTUBATE. Pending patient's symptomatology and diagnostic findings, will re-evaluate in the a.m. Time spent on this followup including assessment, plan, physical examination, patient education is 25 minutes. DICTATING PHYSICIAN: TIM WHITEHEAD NP [id number] PHY#: [id number] ID: [id number] JOB#: [id number] ACCT: [id number] cc: >
[2017-06-08] MEDS: ASPIRIN 81 MG TABLET, CHEWABLE PO SCH (09:27)
[2017-06-08] MEDS: OXYCODONE HCL IR 5 MG TABLET PO PRN (09:28)
[2017-06-08] MEDS: BUDESONIDE/FORMOTEROL 160-4.5 MCG 60 PUFF/6 GM MDI IH SCH (09:33)
[2017-06-08] MEDS: TIOTROPIUM BROMIDE DPI 5 CAP/KIT (18 MCG/CAP) IH SCH (09:33)
[2017-06-08] MEDS ORDERED: ONDANSETRON 4 MG TAB.RAPDIS PO PRN (12:37)
[2017-06-08] MEDS: POTASSI CL 20 MEQ/50 ML RIDER 50 ML IV SCH ×2 (14:17→17:00)
--- NOTE | 2017-06-08 17:10 | RADIOLOGY REPORT (SQ) ---
EXAM DESCRIPTION: MRI HEAD WITHOUT COMPLETED DATE/TIME: 06/08/2017 4:39 pm REASON FOR STUDY: AMS, CVA? COMPARISON: CT brain 06/06/2017 TECHNIQUE: Multiplanar imaging includes non-contrasted T1, T2, FLAIR, and diffusion with ADC map seq uences. Images stored on PACS. LIMITATIONS: None. FINDINGS: ANATOMY: No developmental anomalies. Normal vascular flow voids. Pituitary fossa normal. CSF SPACES: Normal in size and contour. No hemorrhage. CEREBRUM: Acute nonhemorrhagic infarct with altered diffusion signal, and sulcal effacement over the right frontal perisylvian cortex and subcortical white matter in the MCA distribution. Chronic small vessel ischemic change in the bifrontal and biparietal regions is present. Gradient ec ho images show no chronic hemorrhage. POSTERIOR FOSSA: Acute nonhemorrhagic infarct in the right cerebellar hemisphere along the PICA distr ibution. Very mild local mass effect with partial effacement of the rightward 4th ventricle. No hyd rocephalus. No hemorrhage. DIFFUSION IMAGING: Positive for acute nonhemorrhagic infarcts in the right frontal perisylvian region MCA distribution, and right PICA distribution in the posterior inferior cerebellar hemisphere ORBITS: No masses. Globes normal. PARANASAL SINUSES: No fluid levels. Mucosa normal. OTHER: Minimal mastoid air cell fluid. Results called to Clay Porter [employer] IMPRESSION: Acute nonhemorrhagic infarcts in the right frontal perisylvian region MCA distribution, and right posterior inferior cerebellar hemisphere in the PICA distribution. EVIDENCE OF ACUTE STROKE: NO. TECHNICAL DOCUMENTATION: JOB ID: [id number] [employer]- All Rights Reserved
[2017-06-08] MEDS: ATORVASTATIN CALCIUM 80 MG TABLET PO SCH (22:15)
[2017-06-09] MEDS: PIPERACILLIN SODIUM/TAZOBACTAM 4.5 GM in NORMAL SALINE 100 ML IV SCH ×4 (01:05→17:50)
[2017-06-09] MEDS: VANCOMYCIN HCL 1,250 MG in DEXTROSE 5%-WATER 250 ML IV SCH ×2 (03:14→16:23)
[2017-06-09 04:35] LABS: HEMATOCRIT 32.4 % (37.9-51.0); HEMOGLOBIN 10.7 g/dL (13.5-17.0); HGB HCT DIFFERENCE -0.3; MEAN CORPUSCULAR HEMOGLOBIN 27.1 pg (27.0-33.4); MEAN CORPUSCULAR HGB CONC 33.2 g/dL (32.0-36.0); MEAN CORPUSCULAR VOLUME 82 fl (80-97); RED BLOOD COUNT 3.97 10^6/uL (4.35-5.55); RED CELL DISTRIBUTION WIDTH 23.4 % (11.5-14.0); WHITE BLOOD COUNT 19.3 10^3/uL (4.0-10.5)
[2017-06-09 04:59] LABS: ANION GAP 12 (5-19); BLOOD UREA NITROGEN 24 mg/dL (7-20); CALCIUM 8.3 mg/dL (8.4-10.2); CARBON DIOXIDE 27 mmol/L (22-30); CHLORIDE 102 mmol/L (98-107); CREATININE RESULT 1.24 mg/dL (0.52-1.25); GLUCOSE 150 mg/dL (75-110); POTASSIUM 3.4 mmol/L (3.6-5.0); SODIUM 140.9 mmol/L (137-145)
[2017-06-09] MEDS ORDERED: 1/2 NORMAL SALINE 1,000 ML IV ONE (05:45)
[2017-06-09] MEDS ORDERED: POTASSIUM CHLORIDE 10 MEQ TABLET.SA PO ONE (06:00)
[2017-06-09] MEDS: ENOXAPARIN SODIUM INJ 100 MG/1 ML DISP.SYRIN SUBCUT SCH ×2 (06:48→18:03)
[2017-06-09] MEDS ORDERED: HYDROCORTISONE SOD SUCCINATE INJ/PF 100 MG/2 ML SDV IV ONE (07:15)
[2017-06-09] MEDS ORDERED: LACTULOSE SYRUP 20 GM/30 ML UDCUP PO ONE (10:33)
[2017-06-09] MEDS: ASPIRIN 81 MG TABLET, CHEWABLE PO SCH (10:35)
[2017-06-09] MEDS: MIDODRINE HCL 5 MG TABLET PO SCH ×3 (10:35→18:05)
[2017-06-09] MEDS: BUDESONIDE/FORMOTEROL 160-4.5 MCG 60 PUFF/6 GM MDI IH SCH (10:39)
[2017-06-09] MEDS: TIOTROPIUM BROMIDE DPI 5 CAP/KIT (18 MCG/CAP) IH SCH (10:39)
--- NOTE | 2017-06-09 10:56 | PROGRESS NOTE E ---
Progress Note NAME: ZEENAT MENDES : 1960 AGE: 57Y DATE: 06/09/2017 ROOM: 306 SUBJECTIVE: The patient is lying in bed. He states he feels a little better today. There have been no reported episodes of vomiting nor diarrhea. The patient has been quite frustrated. I had a lengthy discussion with the patient's best friend and surrogate decision maker given that patient has no family. I explained the difficulties with the patient's management given the severity of the symptoms. The friend is quite tearful, stating that he wished that the patient would have not left AMA and had been admitted when he was initially sick and feel this could have been avoided. I did explain the process of rehab and they are enthusiastic about this. The patient does not voice any other concerns at this time. REVIEW OF SYSTEMS: Full review of systems cannot be appreciated given the patient's mental status. MEDICATIONS: Medications have been reviewed. OBJECTIVE: GENERAL: The patient is a 57-year-old male who is awake, alert, unable to fully assess orientation. He does not appear to be in acute distress. VITAL SIGNS: As follows: Temperature is 97.5, pulse 88, respirations 20, blood pressure is 85/59, oxygen saturation is 100% on 2 L nasal cannula. SKIN: Warm and dry. No rash. He is not diaphoretic. HEENT: Pupils equal, round, and reactive to light and accommodation. Conjunctivae pink. The patient does have the facial droop. CARDIOVASCULAR: Heart is regular. There is no murmur or rub. CHEST: Clear, rhonchorous breath sounds noted in right lung field, symmetrical, unlabored at this time. ABDOMEN: Mildly distended. No area of focal tenderness. EXTREMITIES: No clubbing, cyanosis, edema. PSYCHIATRIC: The patient is frustrated. DIAGNOSTICS: Lab values are as follows. Hematology obtained on 06/09/2017: WBCs are 19.3, hemoglobin is 10.7, hematocrit is 32.4, platelet count is 299,000. Chemistry obtained on 06/09/2017: Sodium is 140, potassium 3.4, chloride 102, carbon dioxide 27, BUN 24, creatinine 1.50, calcium is 8.3. IMPRESSION AND PLAN: 1. ACUTE ON CHRONIC SYSTOLIC AND DIASTOLIC CONGESTIVE HEART FAILURE. The patient may be a little on the dry side given that he diuresed between 7 and 8 L. Are withholding diuresis. Will actually give a bolus given that patient is hypotensive and follow. 2. PNEUMONIA. Will cover the patient for HCAP given his recent admissions. Will follow. Will add a Legionella antigen as well given that patient got a new air conditioner. I have attempted to obtain sputum specimen. 3. CHRONIC OBSTRUCTIVE PULMONARY DISEASE EXACERBATION. Will continue home inhalers. Will supplement O2. 4. BILATERAL PULMONARY EMBOLI. The patient is on full-dose Lovenox. 5. ACUTE ON CHRONIC HYPOXEMIC RESPIRATORY FAILURE SECONDARY TO ALL THE ABOVE. The patient is no longer requiring BiPAP. He has tolerated transition to nasal cannula and respiratory status is much improved. 6. HYPOKALEMIA. This has been repleted. Repeat labs in the a.m. 7. ANEMIA, RELATIVELY STABLE. 8. ACUTE EMBOLIC CEREBROVASCULAR ACCIDENT x2. Will continue statin and aspirin therapy. The patient is anticoagulated. Unfortunately, given his PEs, patient did require therapeutic anticoagulation. 9. SUSPICION FOR UNDERLYING AFIB. The patient is currently in sinus rhythm. Will continue to follow. 10. DVT PROPHYLAXIS. Will continue subcutaneous heparin. DISPOSITION: THE PATIENT IS A DNR/DNI. Pending the patient's symptomatology and diagnostic findings, will re-evaluate in the a.m. The patient and a family friend have agreed for the patient to go to rehab when stable. Time spent on this followup, including assessment/plan, physical examination, patient education, family meeting, is 35 minutes. DICTATING PHYSICIAN: TIM WHITEHEAD NP [id number] PHY#: [id number] ID: [id number] JOB#: [id number] ACCT: [id number] cc: >
--- NOTE | 2017-06-09 11:33 | Physician Advisory Note ---
Physician Advisor ProgressNote .: Pursuant to the plan for [facility], I have reviewed the medical record for this patient. Physician Advisor Statement: Please specify type of bacteria suspected as cause of PNA - "likely gram positive"? "suspect atypical bacteria"? "possible gram negative"? ... thanks! CK
[2017-06-09 14:10] LABS: APPEARANCE,URINE CLOUDY; BILIRUBIN,URINE NEGATIVE (NEGATIVE); GLUCOSE, URINE NEGATIVE (NEGATIVE); KETONES,URINE NEGATIVE (NEGATIVE); LEUKOCYTE ESTERASE,URINE NEGATIVE (NEGATIVE); NITRITE,URINE NEGATIVE (NEGATIVE); PROTEIN,URINE 100 mg/dL (NEGATIVE); URINE SPECIFIC GRAVITY 1.032; UROBILINOGEN,URINE NEGATIVE mg/dL (<2.0)
[2017-06-09] MEDS: HYDROCORTISONE SOD SUCCINATE INJ/PF 100 MG/2 ML SDV IV SCH ×2 (14:51→22:35)
[2017-06-09] MEDS: ATORVASTATIN CALCIUM 80 MG TABLET PO SCH (22:35)
[2017-06-10] MEDS: PIPERACILLIN SODIUM/TAZOBACTAM 4.5 GM in NORMAL SALINE 100 ML IV SCH ×5 (00:47→23:40)
[2017-06-10] MEDS: VANCOMYCIN HCL 1,250 MG in DEXTROSE 5%-WATER 250 ML IV SCH ×2 (04:25→16:42)
[2017-06-10 04:41] LABS: HEMATOCRIT 31.6 % (37.9-51.0); HEMOGLOBIN 10.5 g/dL (13.5-17.0); HGB HCT DIFFERENCE -0.1; MEAN CORPUSCULAR HEMOGLOBIN 26.4 pg (27.0-33.4); MEAN CORPUSCULAR HGB CONC 33.2 g/dL (32.0-36.0); MEAN CORPUSCULAR VOLUME 80 fl (80-97); RED BLOOD COUNT 3.97 10^6/uL (4.35-5.55); RED CELL DISTRIBUTION WIDTH 23.3 % (11.5-14.0); WHITE BLOOD COUNT 16.7 10^3/uL (4.0-10.5)
[2017-06-10 05:03] LABS: ANION GAP 13 (5-19); BLOOD UREA NITROGEN 30 mg/dL (7-20); CALCIUM 8.6 mg/dL (8.4-10.2); CARBON DIOXIDE 23 mmol/L (22-30); CHLORIDE 103 mmol/L (98-107); CREATININE RESULT 1.09 mg/dL (0.52-1.25); GLUCOSE 142 mg/dL (75-110); MAGNESIUM 2.1 mg/dL (1.6-2.3); POTASSIUM 3.4 mmol/L (3.6-5.0); SODIUM 138.6 mmol/L (137-145)
[2017-06-10] MEDS: ENOXAPARIN SODIUM INJ 100 MG/1 ML DISP.SYRIN SUBCUT SCH ×2 (06:29→18:23)
[2017-06-10] MEDS: HYDROCORTISONE SOD SUCCINATE INJ/PF 100 MG/2 ML SDV IV SCH ×3 (06:29→22:07)
--- NOTE | 2017-06-10 08:28 | PROGRESS NOTE E ---
Progress Note NAME: ZEENAT MENDES : 1960 AGE: 57Y DATE: 06/10/2017 ROOM: 306 SUBJECTIVE: The patient is lying in bed. He is quite groggy this morning. The patient has no reported episodes of vomiting nor diarrhea. The patient has been afebrile. His blood pressures overall have improved, and the patient does not voice any concerns at this time. REVIEW OF SYSTEMS: Full review of systems cannot be appreciated given the patient's mental status. MEDICATIONS: Medications have been reviewed. OBJECTIVE: GENERAL: The patient is a 57-year-old male who appears comfortable, not in distress. VITAL SIGNS: Temperature is 97.5, pulse 94, respirations 24, blood pressure is 101/83, oxygen saturation is 100% on 2 L nasal cannula. SKIN: Pale, dry. No rash. Not diaphoretic. HEENT: Pupils are equal. Facial droop is not as prominent. There is no evidence of JVP. CARDIOVASCULAR SYSTEM: Heart is regular. There is no murmur or rub. CHEST: Patient has rhonchorous breath sounds throughout both lung funk, symmetrical, mildly labored. ABDOMEN: Soft, nontender, nondistended. BACK: No CVA tenderness or sacral edema. EXTREMITIES: No clubbing, cyanosis, edema. PSYCHIATRIC: Patient is groggy. DIAGNOSTICS: Lab values area as follows: Hematology obtained on 06/10/2017: WBCs are 16.7, hemoglobin is 10.5, hematocrit is 31.6, platelet count is 324,000. Chemistry obtained on 06/10/2017: Sodium is 138, potassium is 3.4, chloride is 103, carbon dioxide 23, BUN 30, creatinine is 1.09. Glucose 142, calcium is 8.6, magnesium is 2.1. IMPRESSION AND PLAN: 1. ACUTE ON CHRONIC SYSTOLIC DIASTOLIC HEART FAILURE. The patient initially diuresed 7-8 L, currently withholding diuresis, but also withholding fluids. Appears he is possibly optivolemic at this time. Will follow. 2. PNEUMONIA, MULTIFOCAL, INCLUDING HCAP, POSSIBLE ASPIRATION, POSSIBLY GRAM NEGATIVE, POST-OBSTRUCTIVE ETIOLOGY FROM EMBOLI. The patient has had recent admissions of persistent infiltrates. I did also add a Legionella antigen given the patient had a new air conditioner. Will have attempt at obtaining sputum specimen. 3. CHRONIC OBSTRUCTIVE PULMONARY DISEASE EXACERBATION. Will continue inhalers and supplement O2. 4. BILATERAL PULMONARY EMBOLI. The patient is on a full dose Lovenox. 5. ACUTE ON CHRONIC HYPOXEMIC RESPIRATORY FAILURE SECONDARY TO ALL OF THE ABOVE. Patient is no longer requiring BiPAP. He has tolerated the transition to a nasal cannula. Respiratory status has improved. 6. HYPOKALEMIA. This has been repleted. Will once again replete and repeat labs in the a.m. 7. ANEMIA, RELATIVELY STABLE. 8. ACUTE EMBOLIC CEREBROVASCULAR ACCIDENT X2. Have continued statin, aspirin therapy. The patient is anticoagulated given his PEs. 9. SUSPICION FOR UNDERLYING A-FIB. He continues in sinus rhythm. Beta quirino is on hold. 10. DVT PROPHYLAXIS. Will continue subcu Lovenox. DISPOSITION: The patient is a DO NOT RESUSCITATE/DO NOT INTUBATE. Pending patient's symptomatology and diagnostic findings, will re-evaluate in the a.m. The patient has agreed to go to rehab. Time spent on this followup including assessment, plan, physical examination, attempt at patient education is 20 minutes. DICTATING PHYSICIAN: TIM WHITEHEAD NP [id number] PHY#: [id number] ID: [id number] JOB#: [id number] ACCT: [id number] cc: >
[2017-06-10] MEDS: POTASSI CL 20 MEQ/50 ML RIDER 20 MEQ/50 ML RTUPB IV SCH ×2 (08:59→10:57)
[2017-06-10] MEDS ORDERED: METOPROLOL TARTRATE 25 MG TABLET PO SCH (10:00)
[2017-06-10] MEDS: MIDODRINE HCL 5 MG TABLET PO SCH ×3 (10:57→18:22)
[2017-06-10] MEDS: ASPIRIN 81 MG TABLET, CHEWABLE PO SCH (10:57)
[2017-06-10] MEDS: BUDESONIDE/FORMOTEROL 160-4.5 MCG 60 PUFF/6 GM MDI IH SCH (10:58)
[2017-06-10] MEDS: TIOTROPIUM BROMIDE DPI 5 CAP/KIT (18 MCG/CAP) IH SCH (10:58)
[2017-06-10] MEDS: LEVALBUTEROL HCL NEB 0.63 MG/3 ML AMPUL NEB PRN (15:14)
[2017-06-10] MEDS ORDERED: HALOPERIDOL LACTATE INJ 5 MG/1 ML VIAL IV ONE (18:30)
[2017-06-10 20:13] LABS: ARTERIAL BLOOD O2 SATURATION 95.7 % (94-98)
[2017-06-10] MEDS: ATORVASTATIN CALCIUM 80 MG TABLET PO SCH (22:07)
[2017-06-11] MEDS: VANCOMYCIN HCL 1,250 MG in DEXTROSE 5%-WATER 250 ML IV SCH (04:19)
[2017-06-11 04:56] LABS: HEMATOCRIT 32.3 % (37.9-51.0); HEMOGLOBIN 10.6 g/dL (13.5-17.0); HGB HCT DIFFERENCE -0.5; MEAN CORPUSCULAR HEMOGLOBIN 26.4 pg (27.0-33.4); MEAN CORPUSCULAR VOLUME 80 fl (80-97); RED BLOOD COUNT 4.04 10^6/uL (4.35-5.55); RED CELL DISTRIBUTION WIDTH 23.3 % (11.5-14.0); WHITE BLOOD COUNT 14.1 10^3/uL (4.0-10.5)
[2017-06-11 05:18] LABS: ANION GAP 13 (5-19); BLOOD UREA NITROGEN 25 mg/dL (7-20); CALCIUM 9.2 mg/dL (8.4-10.2); CARBON DIOXIDE 23 mmol/L (22-30); CHLORIDE 107 mmol/L (98-107); CREATININE RESULT 0.91 mg/dL (0.52-1.25); GLUCOSE 140 mg/dL (75-110); MAGNESIUM 2.4 mg/dL (1.6-2.3); POTASSIUM 3.6 mmol/L (3.6-5.0); SODIUM 143.1 mmol/L (137-145)
[2017-06-11] MEDS: ENOXAPARIN SODIUM INJ 100 MG/1 ML DISP.SYRIN SUBCUT SCH ×2 (06:45→17:14)
[2017-06-11] MEDS: PIPERACILLIN SODIUM/TAZOBACTAM 4.5 GM in NORMAL SALINE 100 ML IV SCH ×4 (06:45→23:59)
[2017-06-11] MEDS: HYDROCORTISONE SOD SUCCINATE INJ/PF 100 MG/2 ML SDV IV SCH ×3 (06:46→21:20)
[2017-06-11] MEDS ORDERED: FUROSEMIDE 40 MG TABLET PO SCH (10:00)
--- NOTE | 2017-06-11 10:12 | PROGRESS NOTE E ---
Progress Note NAME: ZEENAT MENDES : 1960 AGE: 57Y DATE: 06/11/2017 ROOM: 306 SUBJECTIVE: The patient is lying in bed. The patient was relatively appropriate with me; however, the patient has been combative over the past 24 hours, has pulled at his Ng, was attempting to get out of bed and subsequently required restraints. Today the patient just states that he wants to be discharged; however, I did get him to acknowledge that this would not be in his best interest from a health standpoint. There have been no reported episodes of vomiting or diarrhea. The patient has been afebrile. His blood pressures have been in a good range and the patient is unable to voice any specific concerns at this time. REVIEW OF SYSTEMS: Full review of systems cannot be appreciated given the patient's mental status. MEDICATIONS: Medications have been reviewed. OBJECTIVE: GENERAL: The patient is a 57-year-old male is awake and alert. He is oriented to place and time, not fully oriented to situation, has poor insight. Does not appear to be distressed. VITAL SIGNS: Temperature is 97.2, pulse 91, respirations 20, blood pressure is 118/89, oxygen saturation is 100% on room air. SKIN: Pale, dry. No rash. Not diaphoretic. HEENT: Pupils are pupils are equal, round and reactive to light and accommodation. Conjunctivae are pink, no JVP. CARDIOVASCULAR SYSTEM: Heart is regular. There is no murmur or rub. CHEST: Patient does have coarse lung sounds throughout right lung field, diminished symmetrical, not currently labored. ABDOMEN: Soft, nontender, nondistended. BACK: No CVA tenderness or sacral edema. EXTREMITIES: No clubbing, cyanosis, edema. PSYCHIATRIC: Patient is somewhat confused. DIAGNOSTICS: Lab values area as follows: Hematology obtained on 06/11/2017: WBCs are 14.1, hemoglobin is 10.6, hematocrit is 32.2, platelet count is 351,000. Chemistry obtained on 06/11/2017: Sodium is 143, potassium is 3.6, chloride is 107, carbon dioxide 23, BUN 25, creatinine is 0.91. Glucose 140, calcium is 9.2, magnesium is 2.4. Microbiology: Blood cultures obtained on 06/06/2017 reveal no growth. IMPRESSION AND PLAN: 1. ACUTE ON CHRONIC SYSTOLIC AND DIASTOLIC CONGESTIVE HEART FAILURE. The patient's initial diuresis was 7-8 L, currently withholding diuresis, as well as fluids, as the patient appears optivolemic at this time. The patient's intake has been quite poor; therefore, will withhold diuresis for now and follow. 2. PNEUMONIA, MULTIFOCAL, INCLUDING POSSIBILITY FOR HCAP, ASPIRATION, POSSIBLY GRAM NEGATIVE, POST-OBSTRUCTIVE ETIOLOGY FROM EMBOLI. The patient has had recent admissions as well as a persistent infiltrate on the right side. Legionella is pending as well. The patient did get a new air conditioner. Will attempt at obtaining sputum specimen. 3. CHRONIC OBSTRUCTIVE PULMONARY DISEASE EXACERBATION. Will continue inhalers and supplement O2. 4. BILATERAL PULMONARY EMBOLI. The patient is on a full dose Lovenox. 5. ACUTE ON CHRONIC HYPOXEMIC RESPIRATORY FAILURE SECONDARY TO ALL OF THE ABOVE. Patient is no longer requiring BiPAP. He has tolerated the transition to a nasal cannula. Respiratory status overall has improved. 6. HYPOKALEMIA. This has been repleted and it is normal this morning. 7. ANEMIA, RELATIVELY STABLE. 8. ACUTE EMBOLIC CEREBROVASCULAR ACCIDENT X2. The patient is full dose statin as well as aspirin therapy. The patient is anticoagulated due to his PEs. 9. SUSPICION FOR UNDERLYING A-FIB. The patient has been in sinus rhythm since being here. The patient will need an event monitor upon discharge. Beta quirino is on hold. 10. DVT PROPHYLAXIS. The patient is on subcu Lovenox. 11. ACUTE ENCEPHALOPATHY. Most likely this is just in-hospital delirium and a combination of the patient's stroke as well. Will use Haldol p.r.n. DISPOSITION: The patient is a DO NOT RESUSCITATE/DO NOT INTUBATE. Pending patient's symptomatology and diagnostic findings, will re-evaluate in the a.m. The patient has agreed to go to rehab. Time spent on this followup including assessment, plan, physical examination, and patient education is 20 minutes. DICTATING PHYSICIAN: TIM WHITEHEAD NP [id number] PHY#: [id number] ID: [id number] JOB#: [id number] ACCT: [id number] cc: >
[2017-06-11] MEDS: ASPIRIN 81 MG TABLET, CHEWABLE PO SCH (10:45)
[2017-06-11] MEDS: BUDESONIDE/FORMOTEROL 160-4.5 MCG 60 PUFF/6 GM MDI IH SCH (10:45)
[2017-06-11] MEDS: POTASSIUM CHLORIDE 10 MEQ TABLET.SA PO SCH (10:45)
[2017-06-11] MEDS: TIOTROPIUM BROMIDE DPI 5 CAP/KIT (18 MCG/CAP) IH SCH (10:46)
[2017-06-11] MEDS: MIDODRINE HCL 5 MG TABLET PO SCH ×3 (10:46→17:13)
[2017-06-11] MEDS: VANCOMYCIN HCL 1,500 MG in DEXTROSE 5%-WATER 250 ML IV SCH (15:12)
[2017-06-11] MEDS: OXYCODONE HCL IR 5 MG TABLET PO PRN (17:14)
[2017-06-11] MEDS: HALOPERIDOL LACTATE INJ 5 MG/1 ML VIAL IV PRN (18:10)
[2017-06-11] MEDS: ATORVASTATIN CALCIUM 80 MG TABLET PO SCH (21:20)
[2017-06-12] MEDS: VANCOMYCIN HCL 1,500 MG in DEXTROSE 5%-WATER 250 ML IV SCH ×2 (04:41→17:33)
[2017-06-12] MEDS: PIPERACILLIN SODIUM/TAZOBACTAM 4.5 GM in NORMAL SALINE 100 ML IV SCH ×3 (06:46→17:37)
[2017-06-12] MEDS: ENOXAPARIN SODIUM INJ 100 MG/1 ML DISP.SYRIN SUBCUT SCH ×2 (06:46→17:33)
[2017-06-12] MEDS: HYDROCORTISONE SOD SUCCINATE INJ/PF 100 MG/2 ML SDV IV SCH (06:47)
[2017-06-12] MEDS ORDERED: TAMSULOSIN HCL 0.4 MG CAP.SR.24H PO ONE (08:42)
[2017-06-12] MEDS ORDERED: HYDROCORTISONE 10 MG TABLET PO ONE (08:42)
[2017-06-12] MEDS ORDERED: LEVALBUTEROL HCL NEB 0.63 MG/3 ML AMPUL NEB PRN (08:45)
--- NOTE | 2017-06-12 09:19 | PROGRESS NOTE E ---
Progress Note NAME: ZEENAT MENDES : 1960 AGE: 57Y DATE: 06/12/2017 ROOM: 306 SUBJECTIVE: The patient is currently lying in bed. The patient is a little more awake and alert, and the patient begs to have his Ng removed. There have been no reported episodes of vomiting nor diarrhea. The patient actually is lying flat and is breathing comfortably. The patient has been afebrile. His blood pressures have been much improved, and the patient is unable to voice any specific concerns at this time. REVIEW OF SYSTEMS: Rest of review of systems negative. MEDICATIONS: Medications have been reviewed. OBJECTIVE: GENERAL: The patient is a 57-year-old male who is awake, alert, and oriented to person, place, time, and situation. Overall, he is delayed. He does not appear to be in any acute distress. VITAL SIGNS: Temperature is 99.3, pulse 105, respirations 20, blood pressure 125/92, oxygen saturation 98% on 2 L nasal cannula. SKIN: Warm and dry. No rash. Not diaphoretic. HEENT: Pupils equal, round, and reactive to light and accommodation. Conjunctivae pink. No JVP. CARDIOVASCULAR SYSTEM: Heart is regular. There is no murmur or rub. CHEST: Clear, symmetrical, unlabored. It is very diminished. ABDOMEN: Soft, nontender, nondistended. BACK: No CVA tenderness or sacral edema. GENITOURINARY: The patient's Ng is draining white fred urine. PSYCHIATRIC: The patient overall is delayed. DIAGNOSTICS: Lab values are as follows: Hematology obtained on 06/11/2017: WBCs are 14.1, hemoglobin is 10.6, hematocrit is 32.3, platelet count is 351,000. Chemistry obtained on 06/11/2017: Sodium is 143, potassium 3.6, chloride is 107, carbon dioxide 23, BUN 25, creatinine is 0.91, glucose 140, calcium is 9.2, magnesium is 2.4. IMPRESSION AND PLAN: 1. ACUTE ON CHRONIC SYSTOLIC AND DIASTOLIC CONGESTIVE HEART FAILURE. The patient diuresed quite well, and the patient appears optivolemic. Have resumed the patient's home diuretic. Overall, the patient's intake has been quite poor, though. Therefore, will reduce the dose of home diuretic and follow. 2. PNEUMONIA, MULTIFOCAL, INCLUDING A POSSIBILITY FOR HCAP, ASPIRATION, GRAM NEGATIVE, POSSIBLE POST-OBSTRUCTIVE ETIOLOGY FROM EMBOLI. The patient has had recent admissions of well persistent infiltrate on the right side. Legionella was negative. Have been unsuccessful with sputum specimen. 3. CHRONIC OBSTRUCTIVE PULMONARY DISEASE. Will continue inhalers and supplemental O2. 4. BILATERAL PULMONARY EMBOLI. Will continue full-dose Lovenox. 5. ACUTE ON CHRONIC HYPOXEMIC RESPIRATORY FAILURE SECONDARY TO ALL OF THE ABOVE. The patient is no longer requiring BiPAP. He has tolerated transition and nasal cannula. Respiratory status overall has improved. 6. HYPOKALEMIA. This has been repleted and normal this morning. 7. ANEMIA IS RELATIVELY STABLE. 8. ACUTE EMBOLIC CEREBROVASCULAR ACCIDENT X2. The patient has full dose statins as well as aspirin therapy. The patient is anticoagulated due to his PEs. 9. SUSPICION FOR UNDERLYING A-FIB. The patient's beta quirino has been on hold, hoping this will manifest itself. However, the patient has been in sinus rhythm here. 10. ACUTE ENCEPHALOPATHY, MOST LIKELY SOME HOSPITAL DELIRIUM AND A COMBINATION OF THE PATIENT'S STROKE WELL. Use p.r.n. Haldol, but overall appears improving. 11. DVT PROPHYLAXIS. Will continue subcu Lovenox. DISPOSITION: The patient is a DNR/DNI. Pending patient's symptomatology and diagnostic findings, the patient may possibly be able to go to rehab in the a.m. Time spent on this followup including assessment, plan, physical examination, patient education, and review of records is 25 minutes. DICTATING PHYSICIAN: TIM WHITEHEAD NP [id number] PHY#: [id number] ID: [id number] JOB#: [id number] ACCT: [id number] cc: >
[2017-06-12] MEDS: MIDODRINE HCL 5 MG TABLET PO SCH ×3 (10:50→17:35)
[2017-06-12] MEDS: ASPIRIN 81 MG TABLET, CHEWABLE PO SCH (10:50)
[2017-06-12] MEDS: POTASSIUM CHLORIDE 10 MEQ TABLET.SA PO SCH (10:51)
[2017-06-12] MEDS: BUDESONIDE/FORMOTEROL 160-4.5 MCG 60 PUFF/6 GM MDI IH SCH (10:52)
[2017-06-12] MEDS: TIOTROPIUM BROMIDE DPI 5 CAP/KIT (18 MCG/CAP) IH SCH (11:48)
[2017-06-12] MEDS: TAMSULOSIN HCL 0.4 MG CAP.SR.24H PO SCH (17:34)
[2017-06-12] MEDS: ATORVASTATIN CALCIUM 80 MG TABLET PO SCH (21:36)
[2017-06-12] MEDS: HALOPERIDOL LACTATE INJ 5 MG/1 ML VIAL IV PRN (21:37)
[2017-06-12] MEDS ORDERED: HYDROCORTISONE 10 MG TABLET PO SCH (22:00)
[2017-06-13] MEDS: PIPERACILLIN SODIUM/TAZOBACTAM 4.5 GM in NORMAL SALINE 100 ML IV SCH ×4 (00:22→17:58)
[2017-06-13 04:13] LABS: HEMATOCRIT 37.1 % (37.9-51.0); HEMOGLOBIN 12.3 g/dL (13.5-17.0); HGB HCT DIFFERENCE -0.2; MEAN CORPUSCULAR HEMOGLOBIN 26.4 pg (27.0-33.4); MEAN CORPUSCULAR HGB CONC 33.2 g/dL (32.0-36.0); MEAN CORPUSCULAR VOLUME 80 fl (80-97); RED BLOOD COUNT 4.67 10^6/uL (4.35-5.55); RED CELL DISTRIBUTION WIDTH 22.9 % (11.5-14.0); WHITE BLOOD COUNT 14.9 10^3/uL (4.0-10.5)
[2017-06-13] MEDS: VANCOMYCIN HCL 1,500 MG in DEXTROSE 5%-WATER 250 ML IV SCH (04:28)
[2017-06-13 04:39] LABS: ANION GAP 13 (5-19); BLOOD UREA NITROGEN 27 mg/dL (7-20); CALCIUM 9.7 mg/dL (8.4-10.2); CARBON DIOXIDE 25 mmol/L (22-30); CHLORIDE 110 mmol/L (98-107); CREATININE RESULT 1.02 mg/dL (0.52-1.25); GLUCOSE 110 mg/dL (75-110); MAGNESIUM 2.5 mg/dL (1.6-2.3); POTASSIUM 3.9 mmol/L (3.6-5.0); SODIUM 147.9 mmol/L (137-145)
[2017-06-13] MEDS: ENOXAPARIN SODIUM INJ 100 MG/1 ML DISP.SYRIN SUBCUT SCH (06:33)
[2017-06-13] MEDS ORDERED: RIVAROXABAN 15 MG TABLET PO SCH (08:00)
--- NOTE | 2017-06-13 08:51 | RADIOLOGY REPORT (SQ) ---
EXAM DESCRIPTION: CHEST PA/LAT COMPLETED DATE/TIME: 06/13/2017 8:26 am REASON FOR STUDY: FU PNA COMPARISON: 06/06/2017 EXAM PARAMETERS: NUMBER OF VIEWS: two views TECHNIQUE: Digital Frontal and Lateral radiographic views of the chest acquired. RADIATION DOSE: NA LIMITATIONS: none FINDINGS: LUNGS AND PLEURA: Mild diffuse increased interstitial densities slightly improved with dif ferential including interstitial pneumonitis and interstitial edema. Improvement in loculated effusi on in the right mid chest with persistent small right effusion being noted. Some loculated effusion versus worsening infiltrate is seen in the right base laterally. Remainder the right lung appears im proved. Slight worsening in pneumonia overlying the left hilum. MEDIASTINUM AND HILAR STRUCTURES: No masses or contour abnormalities. HEART AND VASCULAR STRUCTURES: Mild cardiomegaly. BONES: No acute findings. HARDWARE: None in the chest. OTHER: No other significant finding. IMPRESSION: 1. Worsening abnormal density in the right lung base laterally and overlying the left h ilum. 2. Interval improvement in previous noted abnormal density in the right mid and upper chest. TECHNICAL DOCUMENTATION: JOB ID: [id number] [employer]- All Rights Reserved
[2017-06-13] MEDS ORDERED: FUROSEMIDE 40 MG TABLET PO SCH (09:18)
[2017-06-13] MEDS: ASPIRIN 81 MG TABLET, CHEWABLE PO SCH (09:19)
[2017-06-13] MEDS: MIDODRINE HCL 5 MG TABLET PO SCH ×3 (09:19→17:59)
[2017-06-13] MEDS: POTASSIUM CHLORIDE 10 MEQ TABLET.SA PO SCH (09:19)
[2017-06-13] MEDS: RIVAROXABAN 15 MG TABLET PO SCH ×2 (09:19→17:30)
[2017-06-13] MEDS ORDERED: FUROSEMIDE INJ/PF 40 MG/4 ML SDV IV ONE (09:45)
--- NOTE | 2017-06-13 09:45 | PROGRESS NOTE E ---
Progress Note NAME: ZEENAT MENDES : 1960 AGE: 57Y DATE: 06/13/2017 ROOM: 306 SUBJECTIVE: The patient is currently lying in bed. He appears more tachypneic than yesterday. The patient's chest x-ray shows improvement in some area, but worsening in others. The patient is still not able to articulate any concerns. The patient denies any acute pain. The patient has urinated since his Ng has been removed, and the patient is unable to articulate any specific concerns at this time. REVIEW OF SYSTEMS: Full review of systems cannot be appreciated given the patient's mental status. MEDICATIONS: Medications have been reviewed. OBJECTIVE: GENERAL: The patient is a 57-year-old male who is awake, alert. Unable to fully assess orientation. He does appear to be in some mild distress. VITAL SIGNS: Temperature is 98.5, pulse 121, respirations 26, blood pressure 143/96, oxygen saturation 99% on 2 L nasal cannula. SKIN: Warm and dry. No rash. Not diaphoretic. HEENT: Pupils are equal, round, and reactive to light and accommodation. Conjunctiva pink. There is no JVP. CARDIOVASCULAR SYSTEM: Heart is tachycardic, regular. No rub. CHEST: The patient does have rhonchorous breath sounds noted throughout right lung field, coarse lung sounds throughout, symmetrical, mildly labored. ABDOMEN: Soft, nontender, nondistended. BACK: No CVA tenderness or sacral edema. EXTREMITIES: No clubbing, cyanosis, edema. PSYCHIATRIC: Flat affect. DIAGNOSTICS: Lab values are as follows: Hematology obtained on 06/13/2017: WBCs are 14.9, hemoglobin is 12.3, hematocrit is 37.1, platelet count is 442,000. Chemistry obtained on 06/13/2017: Sodium is 147, potassium 3.9, chloride is 110, carbon dioxide is 25, BUN 27, creatinine is 1.02, glucose 110, calcium is 9.7, magnesium is 2.5. IMPRESSION AND PLAN: 1. ACUTE ON CHRONIC SYSTOLIC AND DIASTOLIC CONGESTIVE HEART FAILURE. THE PATIENT APPEARS OPTIVOLEMIC AT THIS POINT. Have resumed the patient's home diuretic dose. Overall, his intake has been quite poor. Therefore, will need to monitor, but did reduce the home diuretic dose. 2. PNEUMONIA, MULTIFOCAL, INCLUDING POSSIBILITY FOR HCAP, ASPIRATION, GRAM-NEGATIVE, POSSIBLE POST-OBSTRUCTIVE ETIOLOGY DUE TO BILATERAL EMBOLI. 3. ACUTE ON CHRONIC HYPOXEMIC RESPIRATORY FAILURE SECONDARY TO ALL THE ABOVE. Will give a little more BiPAP today. The patient is oxygenating well, but does have some work of breathing. Will also consult Pulmonology for additional input. 4. HYPOKALEMIA. This was repleted. 5. ANEMIA. Overall stable. 6. ACUTE EMBOLIC CEREBROVASCULAR ACCIDENT X2. The patient is on full-dose statin as well as aspirin. Will continue chronic anticoagulation for now. 7. SUSPICION FOR UNDERLYING A-FIB. The patient's beta quirino has been held since admission in an effort to have this manifest itself. The patient has been mainly in sinus tach here. Given the patient's heart rate has persisted, will go ahead and resume beta quirino. The patient is also mildly hypertensive. 8. ACUTE ENCEPHALOPATHY, MOST LIKELY HOSPITAL DELIRIUM IN COMBINATION OF THE STROKE WELL. Have used Haldol p.r.n. It does appear to wax and wane. 9. DVT PROPHYLAXIS. The patient is fully anticoagulated due to PE. DISPOSITION: The patient is a DNR/DNI. Pending patient's symptomatology and diagnostic findings, the patient may go to rehab as soon as his respiratory rate is stable. Time spent on this followup including assessment, plan, physical examination, and patient education, review of records, specialty collaboration is 35 minutes. DICTATING PHYSICIAN: TIM WHITEHEAD NP [id number] PHY#: [id number] ID: [id number] JOB#: [id number] ACCT: [id number] cc: >
[2017-06-13] MEDS ORDERED: MORPHINE SULFATE 10 MG/ML INJ IV PRN (09:57)
[2017-06-13] MEDS ORDERED: FUROSEMIDE 20 MG TABLET PO SCH (10:00)
[2017-06-13] MEDS ORDERED: POTASSIUM CHLORIDE 20 MEQ/15 ML UDCUP PO SCH (10:00)
[2017-06-13] MEDS: TIOTROPIUM BROMIDE DPI 5 CAP/KIT (18 MCG/CAP) IH SCH (10:18)
[2017-06-13] MEDS: BUDESONIDE/FORMOTEROL 160-4.5 MCG 60 PUFF/6 GM MDI IH SCH (10:20)
[2017-06-13] MEDS: GUAIFENESIN 600 MG TABLET.SA PO SCH ×2 (10:39→21:35)
--- NOTE | 2017-06-13 10:46 | PDOC CONSULTATION ---
Consultation Consult Date: 06/13/17 Attending physician:: TIM WHITEHEAD Consult reason:: acute/chronic resp failure History of Present Illness Admission Date/PCP: 06/06/17 13:46 History of Present Illness: ZEENAT MENDES JR is a 57 year old male Has had multiple past admissions for medical problems presents today acutely short of breath and was found on CTA to have bilateral pulmonary emboli as as well as congestive heart failure. He has a long history of COPD as well. All information has been gathered from the chart as patient is currently obtunded he is a DNR apparently has been placed on BiPAP several times and manages to escape the mask. Past Medical History Cardiac Medical History: Reports: Congestive Heart Failure, Hypertension Pulmonary Medical History: Reports: Chronic Obstructive Pulmonary Disease (COPD) Denies: Tuberculosis Musculoskeltal Medical History: Reports: Arthritis Psychiatric Medical History: Denies: Depression Past Surgical History Past Surgical History: Reports: Tonsillectomy, Other - thoracentesis Social History Information Source: [facility] Records Smoking Status: Former Smoker Cigarettes Packs Per Day: 2 Number of Years Smokin Last Time Smoked: 11/2008 Frequency of Alcohol Use: None Hx Recreational Drug Use: No Drugs: None Hx Prescription Drug Abuse: No - Advance Directive Resuscitation Status: Do Not Resuscitate Family History Family History: CAD, DM, Malignancy Parental Family History Reviewed: No Children Family History Reviewed: No Sibling(s) Family History Reviewed.: No Medication/Allergy Home Medications: Albuterol Sulfate [Ventolin 0.083% Neb 2.5 mg/3 ml Ampul] 2.5 mg NEB RTQ6HP PRN 06/04/17 Albuterol Sulfate [Ventolin HFA MDI 18 GM] 2 puff IH Q6HP PRN 06/04/17 Budesonide/Formoterol Fumarate [Symbicort Hfa 160-4.5 Mcg Inhaler 6 gm] 2 puff IH DAILY 06/04/17 Furosemide [Lasix] 40 mg PO QAM 06/04/17 Ipratropium [place] [Atrovent 0.02% Neb 0.5 mg/2.5 ml Ampul] 0.5 mg NEB RTQ6 Lisinopril [Prinivil 2.5 mg Tablet] 2.5 mg PO DAILY 06/04/17 Metoprolol Tartrate [Lopressor 25 mg Tablet] 25 mg PO Q6 06/04/17 Midodrine HCl 10 mg PO Q6AM 06/04/17 Tiotropium [place] [Spiriva Handihaler 5 Cap/Kit (18 Mcg/Cap)] 1 cap IH DAILY Levofloxacin [Levaquin 500 mg Tablet] 500 mg PO DAILY 06/06/17 Allergies/Adverse Reactions: No Known Allergies Allergy (Unverified 06/13/17 07:41) Review of Systems ROS unobtainable: Due to mental status Physical Exam Vital Signs: Temp Pulse Resp BP Pulse Ox 98.5 F 122 H 26 H 143/96 H 99 06/13/17 07:16 06/13/17 07:16 06/13/17 07:16 06/13/17 07:16 06/13/17 07:16 Intake & Output 06/12/17 06/13/17 06/14/17 06:59 06:59 06:59 Intake Total 1620 1490 Output Total 1175 390 Balance 445 1100 Weight 89.3 kg 88.1 kg General appearance: PRESENT: disheveled, mild distress - Moderate distress, obese Head exam: PRESENT: atraumatic, normocephalic Eye exam: PRESENT: conjunctiva pale Mouth exam: PRESENT: dry mucosa, neck supple, tongue midline Teeth exam: PRESENT: poor dentation Neck exam: ABSENT: carotid bruit, JVD, lymphadenopathy, thyromegaly Respiratory exam: PRESENT: decreased breath sounds, prolonged expiratory phas, rhonchi, symmetrical, tachypnea Cardiovascular exam: PRESENT: RRR, +S1, +S2 GI/Abdominal exam: PRESENT: ascites Rectal exam: PRESENT: deferred Gentrourinary exam: PRESENT: other - Wearing diapers Musculoskeletal exam: PRESENT: normal inspection Neurological exam: PRESENT: other - Obtunded Skin exam: PRESENT: dry, warm Results Laboratory Results: 06/13/17 03:55 06/13/17 03:55 06/13/17 06/13/17 03:55 03:55 WBC 14.9 H RBC 4.67 Hgb 12.3 L Hct 37.1 L MCV 80 MCH 26.4 L MCHC 33.2 RDW 22.9 H Plt Count 442 Sodium 147.9 H Potassium 3.9 Chloride 110 H Carbon Dioxide 25 Anion Gap 13 BUN 27 H Creatinine 1.02 Est GFR ( Amer) > 60 Est GFR (Non-Af Amer) > 60 Glucose 110 Calcium 9.7 Magnesium 2.5 H 06/08/17 03:45 NT-Pro-B Natriuret Pep 8960 H Impressions: Chest/Abdomen CTA 06/06/17 00:00 IMPRESSION: 1. Pulmonary emboli are identified in a left upper lobe pulmonary artery and a right lower lobe pulmonary artery. 2. Right pleural effusion that is improved since the earlier study. 3. Multicentric pulmonary infiltrates. Head CT 06/06/17 11:36 IMPRESSION: NORMAL BRAIN CT WITHOUT CONTRAST. Carotid Doppler Study 06/07/17 00:00 IMPRESSION: NO HEMODYNAMICALLY SIGNIFICANT STENOSIS. Head MRI 06/08/17 00:00 IMPRESSION: Acute nonhemorrhagic infarcts in the right frontal perisylvian region MCA distribution, and right posterior inferior cerebellar hemisphere in the PICA distribution. EVIDENCE OF ACUTE STROKE: NO. Chest X-Ray 06/13/17 00:00 IMPRESSION: 1. Worsening abnormal density in the right lung base laterally and overlying the left hilum. 2. Interval improvement in previous noted abnormal density in the right mid and upper chest. Assessment & Plan - Diagnosis (1) CHF (congestive heart failure) Qualifiers: Congestive heart failure type: unspecified congestive heart failure type Congestive heart failure chronicity: unspecified congestive heart failure chronicity Qualified Code(s): I50.9 - Heart failure, unspecified Is this a current diagnosis for this admission?: Yes (2) COPD (chronic obstructive pulmonary disease) Qualifiers: COPD type: unspecified COPD Qualified Code(s): J44.9 - Chronic obstructive pulmonary disease, unspecified Is this a current diagnosis for this admission?: Yes (3) Hypoxemia Is this a current diagnosis for this admission?: Yes (4) Pleural effusion Plan: Patient DNR cannot be intubated refuses to use BiPAP despite being very tachypneic. He is obtunded
[2017-06-13 11:13] LABS: ARTERIAL BLOOD BASE EXCESS 3.3 mmol/L; ARTERIAL BLOOD O2 SATURATION 97.1 % (94-98)
[2017-06-13] MEDS: LORAZEPAM INJ 2 MG/1 ML VIAL IV SCH ×2 (12:29→17:59)
[2017-06-13] MEDS ORDERED: VANCOMYCIN HCL 1,000 MG in DEXTROSE 5%-WATER 250 ML IV SCH (16:00)
[2017-06-13] MEDS: TAMSULOSIN HCL 0.4 MG CAP.SR.24H PO SCH (17:59)
[2017-06-13] MEDS: ATORVASTATIN CALCIUM 80 MG TABLET PO SCH (21:35)
[2017-06-13] MEDS: HYDROCORTISONE 10 MG TABLET PO SCH (21:35)
[2017-06-14] MEDS: LORAZEPAM INJ 2 MG/1 ML VIAL IV SCH ×4 (00:40→17:08)
[2017-06-14] MEDS: PIPERACILLIN SODIUM/TAZOBACTAM 4.5 GM in NORMAL SALINE 100 ML IV SCH ×2 (00:44→05:50)
[2017-06-14] MEDS ORDERED: VANCOMYCIN HCL 1,500 MG in DEXTROSE 5%-WATER 250 ML IV SCH (08:00)
[2017-06-14] MEDS: RIVAROXABAN 15 MG TABLET PO SCH ×2 (08:25→16:03)
--- NOTE | 2017-06-14 10:44 | PDOC PROGRESS REPORT ---
Subjective Progress Note for:: 06/14/17 Subjective:: wearing bipap more comfortable Physical Exam Vital Signs: Temp Pulse Resp BP Pulse Ox 97.6 F 93 23 H 134/85 H 98 06/14/17 08:17 06/14/17 08:17 06/14/17 08:17 06/14/17 08:17 06/14/17 08:17 Intake & Output 06/13/17 06/14/17 06/15/17 06:59 06:59 06:59 Intake Total 1490 443 Output Total 390 Balance 1100 443 Weight 88.1 kg 81.6 kg General appearance: PRESENT: no acute distress, disheveled, well-developed Head exam: PRESENT: atraumatic, normocephalic Eye exam: PRESENT: conjunctiva pale Mouth exam: PRESENT: dry mucosa, neck supple Respiratory exam: PRESENT: decreased breath sounds, prolonged expiratory phas, rales, rhonchi, symmetrical Cardiovascular exam: PRESENT: RRR, +S1, +S2 Pulses: PRESENT: normal radial pulses GI/Abdominal exam: PRESENT: normal bowel sounds, soft. ABSENT: distended, guarding, mass, organolmegaly, rebound, tenderness Rectal exam: PRESENT: deferred Musculoskeletal exam: PRESENT: normal inspection Skin exam: PRESENT: dry, warm Results Laboratory Results: 06/13/17 03:55 06/13/17 03:55 06/13/17 10:51 Carbonic Acid 1.05 HCO3/H2CO3 Ratio 25:1 ABG pH 7.50 H ABG pCO2 34.8 L ABG pO2 84.6 ABG HCO3 26.3 H ABG O2 Saturation 97.1 ABG Base Excess 3.3 FiO2 2L 06/08/17 03:45 NT-Pro-B Natriuret Pep 8960 H Impressions: Chest/Abdomen CTA 06/06/17 00:00 IMPRESSION: 1. Pulmonary emboli are identified in a left upper lobe pulmonary artery and a right lower lobe pulmonary artery. 2. Right pleural effusion that is improved since the earlier study. 3. Multicentric pulmonary infiltrates. Head CT 06/06/17 11:36 IMPRESSION: NORMAL BRAIN CT WITHOUT CONTRAST. Carotid Doppler Study 06/07/17 00:00 IMPRESSION: NO HEMODYNAMICALLY SIGNIFICANT STENOSIS. Head MRI 06/08/17 00:00 IMPRESSION: Acute nonhemorrhagic infarcts in the right frontal perisylvian region MCA distribution, and right posterior inferior cerebellar hemisphere in the PICA distribution. EVIDENCE OF ACUTE STROKE: NO. Chest X-Ray 06/13/17 00:00 IMPRESSION: 1. Worsening abnormal density in the right lung base laterally and overlying the left hilum. 2. Interval improvement in previous noted abnormal density in the right mid and upper chest. Assessment & Plan - Diagnosis (1) CHF (congestive heart failure) Qualifiers: Congestive heart failure type: unspecified congestive heart failure type Congestive heart failure chronicity: unspecified congestive heart failure chronicity Qualified Code(s): I50.9 - Heart failure, unspecified Is this a current diagnosis for this admission?: YesPlan: Unchanged (2) COPD (chronic obstructive pulmonary disease) Qualifiers: COPD type: unspecified COPD Qualified Code(s): J44.9 - Chronic obstructive pulmonary disease, unspecified Is this a current diagnosis for this admission?: Yes (3) Hypoxemia Is this a current diagnosis for this admission?: YesPlan: Improved (4) Pleural effusion Is this a current diagnosis for this admission?: YesPlan: Patient DNR cannot be intubated refuses to use BiPAP despite being very tachypneic. He is obtunded.Loculated effusions risk of thoracentesis outweighs benefits
[2017-06-14] MEDS: MIDODRINE HCL 5 MG TABLET PO SCH ×3 (11:05→17:08)
[2017-06-14] MEDS: ASPIRIN 81 MG TABLET, CHEWABLE PO SCH (11:05)
[2017-06-14] MEDS: TIOTROPIUM BROMIDE DPI 5 CAP/KIT (18 MCG/CAP) IH SCH (11:05)
[2017-06-14] MEDS: MORPHINE SULFATE 10 MG/ML INJ IV PRN ×5 (11:48→22:17)
--- NOTE | 2017-06-14 13:27 | PROGRESS NOTE E ---
Progress Note NAME: ZEENAT MENDES : 1960 AGE: 57Y DATE: 06/14/2017 ROOM: 306 SUBJECTIVE: The patient was seen earlier today on rounds. The patient is obtunded. He has not received any medications for such. The patient has been quite poorly responsive. I met with the patient's closest friends, and given the patient's desire not to be in a hospital and his detest for BiPAP, will transition to COMFORT CARE. This is also at the recommendations of the inspector exhaust emissions. Patient's BiPAP was removed. He has been placed on a nasal cannula and is oxygenating well with no work of breathing at this time. The patient has been afebrile. His blood pressures have been in a good range; however, the patient has had noted Orlin-Humphries breathing throughout the day and night. Patient is unable to voice any concerns at this time. REVIEW OF SYSTEMS: Unobtainable. MEDICATIONS: Medications have been reviewed and tailored for the patient's comfort. PHYSICAL EXAMINATION: GENERAL: On examination, the patient is a frail, chronically ill-appearing 57-year-old male who is nonresponsive, does not appear to be in any distress at this time. VITAL SIGNS: As follows: Temperature is 97.6, pulse 93, respirations 23, blood pressure 134/85, oxygen saturation is 98% on BiPAP. SKIN: Pale, dry. He is not diaphoretic. HEENT: Conjunctivae pale. There is no JVP. BiPAP mask in place. CARDIOVASCULAR: Heart is regular. There is no rub. CHEST: The patient does have rhonchorous breath sounds noted throughout right lung field, symmetrical, unlabored at this time. ABDOMEN: Soft, nondistended. Bowel sounds are present. EXTREMITIES: No clubbing, cyanosis, edema but cool to the touch. PSYCHIATRIC: Unable to fully assess. DIAGNOSTICS: Lab values are as follows. Hematology obtained on 06/13/2017: WBCs are 14.9, hemoglobin is 12.3, hematocrit is 37.1, platelet count is 442,000. Chemistry obtained on 06/13/2017: Sodium is 147, potassium 3.8, chloride is 110, carbon dioxide 25, BUN 27, creatinine is 1.02, glucose 110, calcium is 9.7, magnesium is 2.5. IMPRESSION AND PLAN: 1. ACUTE ON CHRONIC SYSTOLIC AND DIASTOLIC CONGESTIVE HEART FAILURE. The patient appeared optivolemic yesterday. Will continue the patient's home diuretic dose; however, he is not intaking at this time. 2. MULTIFOCAL PNEUMONIA SUGGESTIVE OF BOTH HCAP, ASPIRATION, GRAM-NEGATIVE POSTOBSTRUCTIVE ETIOLOGY, WELL DUE TO BILATERAL PULMONARY EMBOLI. The patient is now on COMFORT MEASURES. 3. ACUTE ON CHRONIC HYPOXEMIC RESPIRATORY FAILURE SECONDARY TO ALL OF THE ABOVE. Will continue to oxygenate the patient. If the patient develops work of breathing, will give morphine. 4. HYPOKALEMIA. This has been repleted. 5. ANEMIA, MOST LIKELY OF UNDERLYING CHRONIC DISEASE, OVERALL STABLE. 6. ACUTE EMBOLIC CEREBROVASCULAR ACCIDENT x2. The patient was treated with aspirin and statin. 7. ACUTE ENCEPHALOPATHY WITH A COMBINATION OF DELIRIUM WELL STROKE. However, the patient did have moments of lucidity. 8. DVT PROPHYLAXIS. The patient was on full anticoagulation. DISPOSITION: THE PATIENT IS A DO NOT RESUSCITATE/DO NOT INTUBATE WITH COMFORT CARE MEASURES ONLY. The patient can go to a rehab bed if one is available if the patient does not in the next couple of hours. Time spent on this followup, including assessment/plan, physical examination, attempted patient education, and meeting with extended family, is 35 minutes. DICTATING PHYSICIAN: TIM WHITEHEAD NP [id number] PHY#: [id number] ID: [id number] JOB#: [id number] ACCT: [id number] cc: >
[2017-06-14] MEDS: TAMSULOSIN HCL 0.4 MG CAP.SR.24H PO SCH (17:08)
[2017-06-14] MEDS: ATORVASTATIN CALCIUM 80 MG TABLET PO SCH (22:26)
[2017-06-14] MEDS: HYDROCORTISONE 10 MG TABLET PO SCH (22:26)
[2017-06-15] MEDS: LORAZEPAM INJ 2 MG/1 ML VIAL IV SCH ×4 (02:21→18:19)
[2017-06-15] MEDS: MORPHINE SULFATE 10 MG/ML INJ IV PRN ×3 (03:00→22:29)
--- NOTE | 2017-06-15 11:08 | PDOC PROGRESS REPORT ---
Subjective Progress Note for:: 06/15/17 Subjective:: Lethargic patient has been taken off BiPAP machine is out of the room Physical Exam Vital Signs: Temp Pulse Resp BP Pulse Ox 97.6 F 105 H 23 H 134/85 H 98 06/14/17 08:17 06/14/17 14:00 06/14/17 08:17 06/14/17 08:17 06/14/17 08:17 Intake & Output 06/14/17 06/15/17 06/16/17 06:59 06:59 06:59 Intake Total 443 90 Balance 443 90 Weight 81.6 kg General appearance: PRESENT: no acute distress, disheveled, obese, well- developed Head exam: PRESENT: atraumatic, normocephalic Eye exam: PRESENT: conjunctiva pale, EOMI Mouth exam: PRESENT: dry mucosa, neck supple Teeth exam: PRESENT: poor dentation Neck exam: PRESENT: carotid bruit Respiratory exam: PRESENT: decreased breath sounds, prolonged expiratory phas, rales, rhonchi, symmetrical, unlabored Cardiovascular exam: PRESENT: RRR, +S1, +S2 Pulses: PRESENT: normal radial pulses GI/Abdominal exam: PRESENT: normal bowel sounds, soft. ABSENT: distended, guarding, mass, organolmegaly, rebound, tenderness Rectal exam: PRESENT: deferred Gentrourinary exam: PRESENT: other - Wearing diapers Musculoskeletal exam: PRESENT: normal inspection Neurological exam: PRESENT: awake Skin exam: PRESENT: dry, warm Results Laboratory Results: 06/13/17 03:55 06/13/17 03:55 06/08/17 03:45 NT-Pro-B Natriuret Pep 8960 H Impressions: Chest/Abdomen CTA 06/06/17 00:00 IMPRESSION: 1. Pulmonary emboli are identified in a left upper lobe pulmonary artery and a right lower lobe pulmonary artery. 2. Right pleural effusion that is improved since the earlier study. 3. Multicentric pulmonary infiltrates. Head CT 06/06/17 11:36 IMPRESSION: NORMAL BRAIN CT WITHOUT CONTRAST. Carotid Doppler Study 06/07/17 00:00 IMPRESSION: NO HEMODYNAMICALLY SIGNIFICANT STENOSIS. Head MRI 06/08/17 00:00 IMPRESSION: Acute nonhemorrhagic infarcts in the right frontal perisylvian region MCA distribution, and right posterior inferior cerebellar hemisphere in the PICA distribution. EVIDENCE OF ACUTE STROKE: NO. Chest X-Ray 06/13/17 00:00 IMPRESSION: 1. Worsening abnormal density in the right lung base laterally and overlying the left hilum. 2. Interval improvement in previous noted abnormal density in the right mid and upper chest. Assessment & Plan - Diagnosis (1) CHF (congestive heart failure) Qualifiers: Congestive heart failure type: unspecified congestive heart failure type Congestive heart failure chronicity: unspecified congestive heart failure chronicity Qualified Code(s): I50.9 - Heart failure, unspecified Is this a current diagnosis for this admission?: Yes (2) COPD (chronic obstructive pulmonary disease) Qualifiers: COPD type: unspecified COPD Qualified Code(s): J44.9 - Chronic obstructive pulmonary disease, unspecified Is this a current diagnosis for this admission?: Yes (3) Hypoxemia Is this a current diagnosis for this admission?: Yes (4) Pleural effusion Is this a current diagnosis for this admission?: Yes - Plan Summary Plan Summary: Patient has been made comfort care and agree with this plan we will sign off for now please do not hesitate to call if I can be of additional assistance thank you very much for allowing me to participate in Mr. Turner's care
[2017-06-15] MEDS ORDERED: BISACODYL 10 MG SUPP.RECT PR PRN (11:36)
--- NOTE | 2017-06-15 11:57 | PROGRESS NOTE E ---
Progress Note NAME: ZEENAT MENDES : 1960 AGE: 57Y DATE: 06/15/2017 ROOM: 306 SUBJECTIVE: The patient is currently lying in bed. He does have denominational family present at the bedside active in his care. The patient will awaken and do thumbs up/thumbs down, but is not completely appropriate with his yeses or nos. The patient has had no reported episodes of vomiting nor diarrhea. The patient appears comfortable and no concerns are voiced at this time. REVIEW OF SYSTEMS: Full review of systems cannot be appreciated given the patient's mental status. MEDICATIONS: Medications have been tailored for comfort. PHYSICAL EXAMINATION: GENERAL: On examination, the patient is a frail, chronically ill-appearing,57-year-old male, who is awake, alert, unable to fully assess orientation. He does have Orlin-Humphries pattern of respirations. VITAL SIGNS: As follows: Temperature is 97.6, pulse 113, respirations 21, blood pressure 143/106, oxygen saturation is 92% on room air. SKIN: Pale. No rash. He is not diaphoretic. HEENT: Pupils are reactive. Conjunctivae are pale. More prominence of his facial droop. CARDIOVASCULAR: Heart is tachycardic, regular. CHEST: Symmetrical, labored at times, but shallow at others. ABDOMEN: Mildly nondistended, but bowel sounds are present. EXTREMITIES: Cool, but no edema. PSYCHIATRIC: Unable to assess. DIAGNOSTICS: Lab values are as follows: Hematology obtained on 06/13/2017: WBCs are 14.9, hemoglobin is 12.3, hematocrit is 37.1, platelet count is 442,000. Chemistry obtained on 06/13/2017: Sodium is 147, potassium 3.9, chloride is 110, carbon dioxide 25, BUN 27, creatinine is 1.02, glucose 110, calcium is 9.7, magnesium is 2.5. IMPRESSION AND PLAN: 1. ACUTE ON CHRONIC SYSTOLIC CONGESTIVE HEART FAILURE. 2. MULTIFOCAL PNEUMONIA SUGGESTIVE OF BOTH HEALTHCARE-ASSOCIATED PNEUMONIA, ASPIRATION, GRAM-NEGATIVE, POST OBSTRUCTIVE ETIOLOGY, WELL DUE TO BILATERAL PULMONARY EMBOLI. The patient is on COMFORT MEASURES. 3. ACUTE ON CHRONIC HYPOXEMIC RESPIRATORY FAILURE SECONDARY TO ALL OF THE ABOVE. Will continue to oxygenate for comfort. Morphine will be given if there is work of breathing. 4. HYPOKALEMIA. This has been repleted. 5. ANEMIA, MOST LIKELY OF UNDERLYING CHRONIC DISEASE, OVERALL STABLE. 6. ACUTE EMBOLIC CEREBROVASCULAR ACCIDENT x2. The patient was treated with aspirin and statin. 8. COMFORT MEASURES. DISPOSITION: THE PATIENT IS A DO NOT RESUSCITATE/DO NOT INTUBATE WITH COMFORT CARE MEASURES ONLY. The patient had been accepted by the hospice facility, however, unable to have family sign him in. Therefore, will continue the current course. Time spent on this followup, including assessment/plan, physical examination, attempted patient education, and meeting with extended family, is 25 minutes. DICTATING PHYSICIAN: TIM WHITEHEAD NP [id number] PHY#: [id number] ID: [id number] JOB#: [id number] ACCT: [id number] cc: >
[2017-06-15] MEDS: TIOTROPIUM BROMIDE DPI 5 CAP/KIT (18 MCG/CAP) IH SCH (12:24)
[2017-06-15] MEDS: ASPIRIN 81 MG TABLET, CHEWABLE PO SCH (12:24)
[2017-06-15] MEDS: RIVAROXABAN 15 MG TABLET PO SCH ×2 (12:24→18:10)
[2017-06-15] MEDS: MIDODRINE HCL 5 MG TABLET PO SCH ×3 (12:24→18:10)
--- NOTE | 2017-06-15 17:17 | TRANSFER SUMMARY E ---
Transfer Summary NAME: ZEENAT MENDES : 1960 AGE: 57Y ADMITTED: 06/06/2017 TRANSFERRED: 06/15/2017 CODE STATUS: DO NOT RESUSCITATE/DO NOT INTUBATE WITH COMFORT CARE MEASURES ONLY WITH PORTABLE DNR. PRIMARY CARE PROVIDER: Dr. Jenkins. DISCHARGE DIAGNOSES: Include: 1. Acute on chronic systolic congestive heart failure. 2. Cardiomyopathy. 3. A multifocal pneumonia suggestive of both HCAP, aspiration, gram-negative, post-obstructive etiologies. 4. Bilateral pulmonary emboli 5. Acute on chronic hypoxemic respiratory failure secondary to all of the above. 6. Hypokalemia. 7. Anemia of underlying chronic disease. 8. Acute cerebrovascular accident x2. 9. Comfort measures. DISCHARGE MEDICATIONS: As per comfort measures: 1. Tylenol 650 mg per rectal q.4 h. p.r.n. 2. Lipitor 80 mg p.o. at hour of sleep. 3. Xarelto 15 mg p.o. b.i.d. 4. Flomax 0.4 mg p.o. with supper. 5. Spiriva 1 capsule inhalation daily. 6. Midodrine 10 mg p.o. every morning. 7. Lasix 40 mg p.o. every morning. 8. Symbicort HFA 2 puffs inhalation daily. 9. Ventolin HFA 2 puffs inhalation q.6 h. p.r.n. 10. Ventolin 0.083/2.5 mg nebulizer q.6 h. p.r.n. DIET: As tolerated. ACTIVITY: As per rehab standards. DIAGNOSTIC DATA: Lab values are as follows: Hematology obtained on 06/13/2017; WBCs are 14.9, hemoglobin is 12.3, hematocrit is 37.1, platelet count is 442,000. Coagulation obtained on 06/06/2017: PT is 15.4, INR is 1.14. ABG obtained on 06/13/2017: pH of 7.50, pCO2 is 34.8, pO2 is 84.6, bicarbonate 26.3. Chemistry obtained on 06/13/2017: Sodium is 147, potassium 3.9, chloride is 110, carbon dioxide 27, BUN 27, creatinine is 1.02, glucose 110, lactic acid is 1.4, calcium is 9.7, magnesium is 2.5, BNP is 89.60, total bilirubin 0.9, AST 18, ALT is 27, alkaline phosphatase 120, CK 27, CK-MB is 0.41, troponin 0.012, BNP is 10,600, troponin 6.6, albumin 3.3. Urinalysis obtained on 06/09/2017; pH of 5.06, specific gravity is 1.032, protein 100, glucose negative, ketones negative, occult blood is large, nitrite negative, bilirubin negative, urobilinogen is negative, leukocyte esterase is negative, WBCs 15, RBCs greater than 182, bacteremia trace, epithelial squamous cells 1, mucus rare, ascorbic acid is negative. *------* obtained on 06/08/2017: Stool for occult blood is negative. Toxicology obtained on 06/13/2017: Vancomycin trough is 30.2. Microbiology: Blood cultures obtained on 06/06/2017 revealed no growth. Legionella obtained on 06/09/2017 reveals no growth. A chest and abdominal CTA obtained on 06/06/2017 reveals pulmonary emboli are identified in the left upper lobe artery and the right lower lobe pulmonary artery, right pleural effusion, and multicentric pulmonary infiltrates. Chest x-ray obtained on 06/06/2017 reveals no changes in the appearance of the chest, diffuse infiltrate of the right lung, and a right pleural effusion. Head CT obtained 06/06/[address] of the brain with contrast. Carotid Doppler obtained on 06/07/2017 reveals no hemodynamically significant stenosis. Head MRI obtained on 06/08/2017 reveals acute non-hemorrhagic infarcts of the right frontal region MCA distribution and right posterior/inferior cerebral hemispheric in the PICA distribution. Chest x-ray obtained on 06/13/2017 has worsening abnormal density in the right lung base laterally and overlying of the right hilum. EKG obtained on 06/06/2017 reveals sinus arrhythmia. PHYSICAL EXAMINATION: GENERAL: On examination the patient is a frail, chronically ill-appearing, 57-year-old male who is awake, alert but not completely appropriate. He does not appear to be distressed. VITAL SIGNS: As follows: Temperature is 98.0, pulse 117, respirations 21, blood pressure is 140/119, oxygen saturation 98% on 2 liters nasal cannula. SKIN: Pale, dry. No rash. He is not diaphoretic. HEENT: Pupils are reactive. Conjunctiva is pale. NECK: No JVP. CARDIOVASCULAR SYSTEM: Heart is regularly irregular. There is no rub. CHEST: Rhonchorous breath sounds are noted throughout right lung field, symmetrical, labored at this time, shallow at others. ABDOMEN: Soft, mildly distended but bowel sounds are present. EXTREMITIES: No clubbing, cyanosis. PSYCHIATRIC: Never fully assessed. HISTORY OF PRESENT ILLNESS: The patient is a 57-year-old male with a past medical history of cardiomyopathy as well as multiple hospitalizations. The patient presented to the emergency department with a chief complaint of shortness of breath. The patient was actually seen in the emergency department on 06/03/2017 due to similar symptoms. At that time the patient was found to have pneumonia, was encouraged to stay for admission. However, the patient insisted upon discharge against medical advice. Upon presentation the day of admission, the patient was found to be significantly tachypneic, hypoxic, and had evidence of a diffuse infiltrate of the right lung as well as a right pleural effusion. The patient had had a thoracentesis on a previous admission. The patient was also noted to have a left-sided facial droop which was new for the patient, uncertain of when this started, and CT of the head was unremarkable with no other deficits. The patient was found to be also tachycardic with a heart rate of 110. He was dyspneic with respirations in the 40s. The patient had been given 2 boluses of saline, and the patient had been referred to the hospitalist for admission and management. HOSPITAL COURSE: The patient was admitted to [facility]. The patient was found to be in volume overload and was aggressively diuresed 8 liters. The patient's respiratory symptoms improved at that time. However, the patient's secretions did worsen. The patient underwent imaging, and findings were consistent with CVA, most likely embolic etiology as per the findings of the patient's CTA of the chest. The patient was fully anticoagulated from admission. The patient made slight improvements, however, would regress. The patient was unable during his stay to ambulate, however, the patient was able to have periods of clarity, and the patient had already had expressed himself to be a DNR. On admission, the patient stated that he did not want any heroic measures and did not even want BiPAP support. However, after 7 days of aggressive management with broad-spectrum antibiotic coverage, the patient's infiltrates continued to worsen and respiratory status began to worsen. The patient began to have Orlin-villanueva respiration. For a brief period of time, the patient did concede to BiPAP. The patient gave permission to discuss the case with alevism family members, which also were in agreement that the patient was a minimalist when it came to his healthcare management. The patient was transitioned to comfort care given no response to management and the patient's refusal to consider any advanced therapies or even tertiary referral. The patient did not have an effusion that could be tapped during this admission but does appear to be loculated, and the patient will be transferred to [facility] for comfort care management. Time spent on this transfer including assessment, plan, physical examination, attempted patient education, resource alignment is 35 minutes. DICTATING PHYSICIAN: TIM WHITEHEAD NP [id number] Y#: [id number] ID: [id number] JOB#: [id number] ACCT: [id number] cc:TIM WHITEHEAD NP >
[2017-06-15] MEDS: TAMSULOSIN HCL 0.4 MG CAP.SR.24H PO SCH (18:10)
[2017-06-15] MEDS: HYDROCORTISONE 10 MG TABLET PO SCH (22:18)
[2017-06-15] MEDS: ATORVASTATIN CALCIUM 80 MG TABLET PO SCH (22:18)
[2017-06-16] MEDS: LORAZEPAM INJ 2 MG/1 ML VIAL IV SCH ×3 (02:46→12:32)
[2017-06-16] MEDS: MORPHINE SULFATE 10 MG/ML INJ IV PRN (04:36)
[2017-06-16 08:30] VITALS: BP 155/110
[2017-06-16] MEDS: RIVAROXABAN 15 MG TABLET PO SCH (08:49)
[2017-06-16] MEDS: TIOTROPIUM BROMIDE DPI 5 CAP/KIT (18 MCG/CAP) IH SCH (09:17)
[2017-06-16] MEDS: ASPIRIN 81 MG TABLET, CHEWABLE PO SCH (09:17)
[2017-06-16] MEDS: MIDODRINE HCL 5 MG TABLET PO SCH (09:17)
== END 2017-06-16 13:15 | DRG 64 ==
LOC: ER 11:30 → EH 13:46 → 3N 16:52
PROVIDERS: ADMIT Family Medicine; ATTEND Family Medicine
PROC: 5A09557 Assistance with Respiratory Ventilation, Greater than 96 Consecutive Hours, Continuous Positive Airway Pressure (ICD-10-PCS; principal; 2017-06-06)
PROC: 3E0F73Z Introduction of Anti-inflammatory into Respiratory Tract, Via Natural or Artificial Opening (ICD-10-PCS; 2017-06-06)
DX: I63.411 Cerebral infarction due to embolism of right middle cerebral artery (principal); I26.99 Other pulmonary embolism without acute cor pulmonale; J96.21 Acute and chronic respiratory failure with hypoxia; J69.0 Pneumonitis due to inhalation of food and vomit; J15.6 Pneumonia due to other Gram-negative bacteria; I50.43 Acute on chronic combined systolic (congestive) and diastolic (congestive) heart failure; J44.0 Chronic obstructive pulmonary disease with (acute) lower respiratory infection; I42.9 Cardiomyopathy, unspecified; J44.1 Chronic obstructive pulmonary disease with (acute) exacerbation; I63.431 Cerebral infarction due to embolism of right posterior cerebral artery; Z78.1 Physical restraint status; Z66 Do not resuscitate; Z51.5 Encounter for palliative care; I11.0 Hypertensive heart disease with heart failure; E87.6 Hypokalemia; D63.8 Anemia in other chronic diseases classified elsewhere; R29.810 Facial weakness; M19.90 Unspecified osteoarthritis, unspecified site; Z79.899 Other long term (current) drug therapy; Z88.0 Allergy status to penicillin; Z87.891 Personal history of nicotine dependence; Z83.3 Family history of diabetes mellitus; Z82.49 Family history of ischemic heart disease and other diseases of the circulatory system; Z80.8 Family history of malignant neoplasm of other organs or systems
CPT/HCPCS: 36415; 36600; 70450; 70551; 71010; 71020; 71275; 80048; 80053; 80202; 81001; 82272; 82550; 82553; 82565; 82803; 83605; 83735; 83880; 84484; 85025; 85027; 85610; 85730; 87040; 93005; 93010; 93880; 94640; 94660; 94667; 94799; 96365; 96375; 99285; 99291; G8996-GN; G8997-GN; G8998-GN; J1630; J1644; J1650; J1720; J1940; J1956; J2060; J2270; J2543; J3370; J3480; J3490; J7030; J7040; J7060; J7614; J7620; S0119

== ENCOUNTER 2017-06-16 21:05 | Inpatient (IN) | payer MEDICARE, MEDICAID ==
[2017-06-16 21:36] LABS: ABSOLUTE BASOPHILS # (AUTO) 0.1 10^3/uL (0.0-0.2); ABSOLUTE EOSINOPHILS # (AUTO) 0.1 10^3/uL (0.0-0.6); ABSOLUTE LYMPHOCYTES (AUTO) 1.1 10^3/uL (0.5-4.7); ABSOLUTE MONOCYTES (AUTO) 1.2 10^3/uL (0.1-1.4); ABSOLUTE NEUT (AUTO) 10.4 10^3/uL (1.7-8.2); BASOPHILS % (AUTO) 0.4 % (0-2); EOSINOPHILS % (AUTO) 0.5 % (0-6); HEMATOCRIT 39.2 % (37.9-51.0); HEMOGLOBIN 12.6 g/dL (13.5-17.0); HGB HCT DIFFERENCE -1.4; LYMPHOCYTES % (AUTO) 8.9 % (13-45); MEAN CORPUSCULAR HGB CONC 32.2 g/dL (32.0-36.0); MEAN CORPUSCULAR VOLUME 81 fl (80-97); MONOCYTES % (AUTO) 9.2 % (3-13); RED BLOOD COUNT 4.85 10^6/uL (4.35-5.55); RED CELL DISTRIBUTION WIDTH 24.5 % (11.5-14.0); WHITE BLOOD COUNT 12.8 10^3/uL (4.0-10.5)
[2017-06-16 21:42] LABS: PROTHROMBIN TIME 17.1 SEC (11.4-15.4); VENOUS BLOOD BASE EXCESS 8.6 mmol/L; VENOUS BLOOD HCO3 32.9 mmol/L (20-32); VENOUS BLOOD PH 7.49 (7.30-7.42)
[2017-06-16 21:55] LABS: ALANINE AMINOTRANSFERASE 47 U/L (21-72); ALBUMIN 3.3 g/dL (3.5-5.0); ALKALINE PHOSPHATASE 247 U/L (38-126); ANION GAP 12 (5-19); ASPARTATE AMINO TRANSFERASE 35 U/L (17-59); BILIRUBIN,DIRECT 0.7 mg/dL (0.0-0.4); BILIRUBIN,TOTAL 1.2 mg/dL (0.2-1.3); BLOOD UREA NITROGEN 30 mg/dL (7-20); CARBON DIOXIDE 33 mmol/L (22-30); CHLORIDE 112 mmol/L (98-107); CREATININE RESULT 1.11 mg/dL (0.52-1.25); GLUCOSE 114 mg/dL (75-110); SODIUM 156.6 mmol/L (137-145)
[2017-06-16 21:59] LABS: POTASSIUM 2.9 mmol/L (3.6-5.0)
[2017-06-16] MEDS ORDERED: MORPHINE SULFATE 10 MG/ML INJ IV ONE (22:01)
[2017-06-16 22:06] LABS: ANISOCYTOSIS 3+
[2017-06-16 22:07] LABS: OVALOCYTES SLIGHT; POIKILOCYTOSIS SLIGHT; TARGET CELLS 1+
--- NOTE | 2017-06-16 22:10 | RADIOLOGY REPORT (SQ) ---
EXAM DESCRIPTION: CHEST SINGLE VIEW COMPLETED DATE/TIME: 06/16/2017 9:59 pm REASON FOR STUDY: difficulty breathing COMPARISON: 06/13/2017, CT 06/06/2017 EXAM PARAMETERS: NUMBER OF VIEWS: One view. TECHNIQUE: Single frontal radiographic view of the chest acquired. RADIATION DOSE: NA LIMITATIONS: None. FINDINGS: LUNGS AND PLEURA: Multiple opacities. Slightly improved. Smaller [place] hump on the ri ght. No pneumothorax. MEDIASTINUM AND HILAR STRUCTURES: No masses. Contour normal. HEART AND VASCULAR STRUCTURES: Heart enlarged. Mild vascular congestion. BONES: No acute findings. HARDWARE: None in the chest. OTHER: No other significant finding. IMPRESSION: Mild improvement in the opacities over the previous exam. Stable vascular congestion. TECHNICAL DOCUMENTATION: JOB ID: [id number]
--- NOTE | 2017-06-16 22:43 | EKG REPORT ---
SEVERITY:- ABNORMAL ECG - SINUS TACHYCARDIA VENTRICULAR PREMATURE COMPLEX LEFT ANTERIOR FASCICULAR BLOCK PROBABLE LEFT VENTRICULAR HYPERTROPHY ANTERIOR Q WAVES, POSSIBLY DUE TO LVH : Confirmed by: Argelia Dodge 16-Jun-2017 22:42:58
--- NOTE | 2017-06-16 22:44 | ER Document Report ---
ED General - General Chief Complaint: Decreased LOC Stated Complaint: UNRESPONSIVE Time Seen by Provider: 06/16/17 21:58 Notes: Patient was just an inpatient at [facility] for pneumonia and sepsis. On Monday, 3 days ago, patient was designated as "comfort care". He was felt to be ready for discharge today and was taken to [place]. According to individuals here with the patient to have his power of attorney recruiter, patient supposed to be receiving morphine 4 mg every couple of hours for comfort but no other care. According to these individuals, the patient was discharged today from [facility] and was taken to [place] by [facility]. They tell me that the patient had vital signs done when [facility] left the patient there and then nothing was done from then until they went to check on the patient this evening. They found that he has not received any morphine for pain, that the only orders with the patient were for ibuprofen. He was also determined to have a temperature elevation of 103 orally and axillary. They called for transport to bring the patient back to this hospital and they indicate they do not want the patient sent back to [place] again. Patient has a history of COPD has had previous strokes and congestive heart failure. TRAVEL OUTSIDE OF THE [place] IN LAST 30 DAYS: No - Related Data Allergies/Adverse Reactions: No Known Allergies Allergy (Unverified 06/13/17 07:41) Past Medical History - Social History Smoking Status: Former Smoker Family History: Reviewed & Not Pertinent, CAD, DM, Malignancy - Past Medical History Cardiac Medical History: Reports: Hx Congestive Heart Failure, Hx Hypertension Pulmonary Medical History: Reports: Hx COPD, Hx Pneumonia Musculoskeltal Medical History: Reports Hx Arthritis Past Surgical History: Reports: Hx Tonsillectomy, Other - thoracentesis - Immunizations Hx Diphtheria, Pertussis, Tetanus Vaccination: No - unk Review of Systems - Review of Systems -: Yes ROS unobtainable due to patient's medical condition - Family and friends are not available at this time to provide ROS Physical Exam - Vital signs Vitals: Resp Pulse Ox 31 H 97 06/16/17 21:15 06/16/17 21:15 - Notes Notes: PHYSICAL EXAMINATION: GENERAL: Ill appearing, poorly responsive. Warm to the touch. HEAD: Atraumatic, normocephalic. NECK: Normal range of motion, supple. LUNGS: Breath sounds with scattered rales and rhonchi bilaterally. HEART: Regular rate and rhythm without murmurs. ABDOMEN: Soft, nonten heard.er. No guarding or rebound. BACK: No tenderness throughout entire back. EXTREMITIES: Normal range of motion without pain. NEUROLOGICAL: Poorly responsive. Does not follow commands. Does not answer questions. Not sure if he knows what is going on around him. Nurses say he does squeeze their hand when they tell him to. SKIN: Warm, dry, no rashes. Course - Re-evaluation Re-evalutation: 06/16/17 23:27 Had lengthy discussion with Mariella Downing and later with Michael Perry, both of whom indicate that they have power of attorney recruiter for medical decisions for this patient. Both of them as well as Elio Downing, Mariella's , are in complete agreement that this patient is not to be resuscitated in any way. He is a DNR plus also comfort care. They understand that the only thing that the patient is supposed to receive his morphine 4 mg every couple of hours for his comfort. Spoke with Dr. Landaverde, who is the hospitalist corporate health consultant, and he will admit the patient to a floor bed for comfort care until further arrangements can be made for a place for this patient to stay until his passing. - Vital Signs Vital signs: Temp Pulse Resp BP Pulse Ox 101.9 F H 26 H 125/92 H 94 06/16/17 21:35 06/16/17 23:01 06/16/17 23:01 06/16/17 23:01 - Laboratory Result Diagrams: 06/16/17 21:19 06/16/17 21:19 Laboratory results interpreted by me: 06/16/17 06/16/17 06/16/17 21:19 21:19 21:19 WBC 12.8 H Hgb 12.6 L MCH 26.0 L RDW 24.5 H Plt Count 639 H Seg Neutrophils % 81.0 H Lymphocytes % 8.9 L Absolute Neutrophils 10.4 H PT 17.1 H VBG pH VBG HCO3 Sodium 156.6 H Potassium 2.9 L* Chloride 112 H Carbon Dioxide 33 H BUN 30 H Glucose 114 H Direct Bilirubin 0.7 H Alkaline Phosphatase 247 H Albumin 3.3 L 06/16/17 21:19 WBC Hgb MCH RDW Plt Count Seg Neutrophils % Lymphocytes % Absolute Neutrophils PT VBG pH 7.49 H VBG HCO3 32.9 H Sodium Potassium Chloride Carbon Dioxide BUN Glucose Direct Bilirubin Alkaline Phosphatase Albumin Discharge - Discharge Clinical Impression: Fever, Need for comfort care Condition: Poor Disposition: ADMITTED OBSERVATION Admitting Provider: Hospitalist Unit Admitted: Medical Floor
[2017-06-16 23:15] VITALS: BP 125/92
[2017-06-16] MEDS ORDERED: MORPHINE SULFATE 10 MG/ML INJ IV PRN (23:34)
[2017-06-17] MEDS ORDERED: ACETAMINOPHEN 650 MG SUPP.RECT PR PRN (00:36)
[2017-06-17] MEDS ORDERED: PROMETHAZINE HCL 25 MG SUPP.RECT PR PRN (00:42)
--- NOTE | 2017-06-17 01:37 | PDOC H&P ---
History of Present Illness Admission Date/PCP: 06/17/17 00:36 CECE MASON MD Patient complains of: Fever, comfort care History of Present Illness: ZEENAT MENDES JR is a 57 year old male, with underlying systolic congestive heart failure, bilateral pulmonary emboli, and having suffered acute stroke 2 along with multifocal pneumonia, who presents to the emergency room from [facility] for evaluation of above. Patient has been discussed with emergency room physician who evaluated the patient. Patient is completely unresponsive to voice and is able to provide no history whatsoever in terms of acute or chronic events, review of systems, personal habits, family history, etc. friend Aditi Downing is present at his side. , She is his healthcare decision maker, along with her Elio, and another friend Michael Perry. Patient is single. No children. Parents and brother are . He reportedly has a sister thought to be living in [place], but has not had contact with her in greater than 20 years. Hospitalized on our service 801 through 06/16/2017 with final diagnoses as noted above. Was made comfort care status during his hospital stay here. Was transferred to [facility] on 06/16/2017. History and physical and transfer summary have been reviewed. When above healthcare decision makers came to [place], they realized patient had not had pain medication and little attention in a number of hours, and was noted to be febrile, with a temperature of 103 orally. They called for transport to bring the patient back to the emergency room, and were adamant that they did not want the patient sent back to [place] again. They are interested in arranging home hospice. . Dictation via voice recognition software. Laboratory results are listed in [employer] and are reviewed. X-ray summary results are listed below, with full report(s) reviewed. . EKG reviewed compared to prior tracing from the first of this month. Social history/personal habits: See history and present illness. No further information available this point in time. No known drug allergies. Home medications initially autopopulated into [employer] may not accurately reflect patient's true medications, dosages, and/or frequencies. scale technician to reconcile medications. Unfortunately, patient not able to provide any information related to medications/dosages/frequencies. REVIEW OF SYSTEMS: See history and present illness. No further information available this point in time. PHYSICAL EXAMINATION: 80.9 kg.Temperature 101.9. Pulse 115 and regular. Blood pressure 125/92. Respirations are 26 and unlabored. 94% saturation on room air. Height is not recorded on the chart. Chronically ill-appearing bearded male who appears a bit older than his stated age. He is asleep. Maintaining airway well. Does not respond at all to name. Skin is warm and dry. ENT: Does not respond at all to name. Psychiatric: Cannot be adequately evaluated due to his current status. Lungs: Auscultation reveals clear and equal breath sounds bilaterally. No use of accessory respiratory muscles. Cardiovascular: Heart regular rate and rhythm, without gallop murmur or rub. Abdomen:soft slightly distended nontender with positive bowel sounds. Past Medical History Past Medical History: Information obtained from current and prior records, including his recent hospital stay. Patient not able to provide any information. Cardiac Medical History: Reports: Congestive Heart Failure, Hypertension Pulmonary Medical History: Reports: Chronic Obstructive Pulmonary Disease (COPD) , Pneumonia Denies: Tuberculosis Musculoskeltal Medical History: Reports: Arthritis Psychiatric Medical History: Denies: Depression Past Surgical History Past Surgical History: Information obtained from current and prior records, including his recent hospital stay. Patient not able to provide any information. Past Surgical History: Reports: Tonsillectomy, Other - thoracentesis Social History Information Source: [facility], Emergency Med Personnel, [facility] Records Smoking Status: Former Smoker Frequency of Alcohol Use: None Hx Recreational Drug Use: No Drugs: None Hx Prescription Drug Abuse: No - Advance Directive Resuscitation Status: Comfort Measures Only Surrogate healthcare decision maker:: See history and present illness. Family History Family History: Reviewed & Not Pertinent, CAD, DM, Malignancy Parental Family History Reviewed: Yes - Parents . Children Family History Reviewed: NA Sibling(s) Family History Reviewed.: Yes - Brother . Estranged sister reportedly in [place]; no contact for more than 20 years. Medication/Allergy Home Medications: Albuterol Sulfate [Ventolin 0.083% Neb 2.5 mg/3 mL Ampul] 2.5 mg NEB RTQ6HP PRN 06/04/17 Albuterol Sulfate [Ventolin HFA MDI 18 GM] 2 puff IH Q6HP PRN 06/04/17 Budesonide/Formoterol Fumarate [Symbicort HFA 160-4.5 mcg Inhaler 6 gm] 2 puff IH DAILY 06/04/17 Furosemide [Lasix] 40 mg PO QAM 06/04/17 Midodrine HCl 10 mg PO Q6AM 06/04/17 Tiotropium Guild [Spiriva Handihaler 5 Cap/Kit (18 Mcg/Cap)] 1 cap IH DAILY Acetaminophen [Tylenol 650 mg Supp] 650 mg LA Q4HP PRN #0 supp.rect 06/15/17 Atorvastatin Calcium [Lipitor 80 mg Tablet] 80 mg PO QHS #0 tablet 06/15/17 Rivaroxaban [Xarelto 15 mg Tablet] 15 mg PO BIDBS tablet 06/15/17 Tamsulosin HCl [Flomax 0.4 mg Cap.sr] 0.4 mg PO PCSUPPER cap.sr.24h 06/15/17 Allergies/Adverse Reactions: No Known Allergies Allergy (Unverified 06/13/17 07:41) Physical Exam Vital Signs: Temp Pulse Resp BP Pulse Ox 101.9 F H 25 H 125/92 H 94 06/16/17 21:35 06/16/17 23:15 06/16/17 23:01 06/16/17 23:15 Results Impressions: Chest X-Ray 06/16/17 21:11 IMPRESSION: Mild improvement in the opacities over the previous exam. Stable vascular congestion. Assessment & Plan - Diagnosis (1) Fever Qualifiers: Fever type: due to other condition Qualified Code(s): R50.81 - Fever presenting with conditions classified elsewhere Is this a current diagnosis for this admission?: YesPlan: Possibly due to underlying pneumonia. As needed Tylenol suppository. Due to his altered mental status, patient will be kept completely n.p.o. Ms. Downing aware and concurs. D/C planning consult for home hospice. (2) Need for comfort care Is this a current diagnosis for this admission?: YesPlan: We will continue same status. Burke discussion had in layperson's terms at the bedside with Aditi Downing. She subsequently contacted her by telephone, and similar discussion was had via speaker phone with both Dianalars. Both understand that with comfort care measures, there will be no labs drawn, no x-rays. No vital signs. If functioning saline lock becomes nonfunctional or comes out, will not be reinserted. No monitors. At 1 AM, I had telephone conversation with Mr. Perry, also discussing the above in layperson's terms. Implications of DO NOT RESUSCITATE/DO NOT INTUBATE status also discussed with above individuals. Discussed in layperson's terms. Implications understood. Above individuals are the health care decision makers. Their conversations are lucid and appropriate. They desire DO NOT RESUSCITATE/DO NOT INTUBATE status, also. Will honor their wishes. 50 minutes spent in evaluation and management of patient, including chart review , patient examination, discussions with all 3 above individuals, along with discussions with nursing staff and ER physician.
[2017-06-17] MEDS: MORPHINE SULFATE 10 MG/ML INJ IV PRN ×7 (02:55→22:23)
[2017-06-17] MEDS ORDERED: ALBUTEROL SULFATE 0.083% NEB 2.5 MG/3 ML AMPUL NEB PRN (09:44)
--- NOTE | 2017-06-17 11:55 | PDOC PROGRESS REPORT ---
Subjective Progress Note for:: 06/17/17 Subjective:: Patient is seen on morning rounds. He is resting in bed and appears comfortable. He continues to have occasional Orlin Stoke breathing pattern and periods of apnea. He remains nonverbal. His friends, and MPOAs are at bedside. They expressed their displeasure with his lack of care at [facility] and do not want him to return there. They want to continue patient on comfort care only and will discuss options for hospice with social work on Monday. Physical Exam Vital Signs: Temp Pulse Resp BP Pulse Ox 101.9 F H 25 H 125/92 H 94 06/16/17 21:35 06/16/17 23:15 06/16/17 23:01 06/16/17 23:15 Intake & Output 06/16/17 06/17/17 06/18/17 06:59 06:59 06:59 Intake Total 20 Output Total 600 Balance -580 Weight 80.9 kg General appearance: PRESENT: no acute distress, well-developed, well-nourished, other - flushed Head exam: PRESENT: atraumatic, normocephalic Eye exam: PRESENT: conjunctiva pink, EOMI, PERRLA. ABSENT: scleral icterus Ear exam: PRESENT: normal external ear exam Mouth exam: PRESENT: moist, tongue midline Neck exam: ABSENT: carotid bruit, JVD, lymphadenopathy, thyromegaly Respiratory exam: PRESENT: clear to auscultation flex. ABSENT: rales, rhonchi, wheezes Pulses: PRESENT: normal dorsalis pedis pul Vascular exam: PRESENT: normal capillary refill GI/Abdominal exam: PRESENT: normal bowel sounds, soft. ABSENT: distended, guarding, mass, organolmegaly, rebound, tenderness Rectal exam: PRESENT: deferred Extremities exam: PRESENT: full ROM. ABSENT: calf tenderness, clubbing, pedal edema Musculoskeletal exam: PRESENT: ambulatory, full ROM, normal inspection Neurological exam: PRESENT: altered, aphasic Psychiatric exam: PRESENT: flat affect Skin exam: PRESENT: dry, warm Results Impressions: Chest X-Ray 06/16/17 21:11 IMPRESSION: Mild improvement in the opacities over the previous exam. Stable vascular congestion. Assessment & Plan - Diagnosis (1) Need for comfort care Is this a current diagnosis for this admission?: YesPlan: Comfort measures and medications are in place. Patient is experiencing no symptoms at the present time. Discussion with his MPOA regarding goals of care and options for hospice not involving acute care (2) Fever Qualifiers: Fever type: due to other condition Qualified Code(s): R50.81 - Fever presenting with conditions classified elsewhere Is this a current diagnosis for this admission?: YesPlan: Tylenol prn (3) CHF (congestive heart failure) Qualifiers: Congestive heart failure type: unspecified congestive heart failure type Congestive heart failure chronicity: unspecified congestive heart failure chronicity Qualified Code(s): I50.9 - Heart failure, unspecified Is this a current diagnosis for this admission?: YesPlan: Comfort measures only (4) COPD (chronic obstructive pulmonary disease) Qualifiers: COPD type: unspecified COPD Qualified Code(s): J44.9 - Chronic obstructive pulmonary disease, unspecified Plan: Comfort measures only (5) Hypoxemia Is this a current diagnosis for this admission?: Yes (6) Pneumonia Qualifiers: Pneumonia type: due to unspecified organism Laterality: right Lung location: lower lobe of lung Qualified Code(s): J18.1 - Lobar pneumonia, unspecified organism Plan: Comfort measures only (7) Sepsis Qualifiers: Sepsis type: sepsis due to unspecified organism Qualified Code(s): A41.9 - Sepsis, unspecified organism - Time Time Spent with patient: 25-34 minutes Critical Time spent with patient: 25-34 minutes Medications reviewed and adjusted accordingly: Yes Anticipated discharge: Hospice
[2017-06-18] MEDS: MORPHINE SULFATE 10 MG/ML INJ IV PRN ×3 (01:08→06:42)
[2017-06-18] MEDS ORDERED: ATROPINE SULFATE 1% OPH SOLN 5 ML BOTTLE SL PRN (08:31)
[2017-06-18] MEDS ORDERED: MORPHINE SULFATE 10 MG/ML INJ IV PRN (08:49)
[2017-06-18] MEDS: MORPHINE SULFATE 10 MG/ML INJ IV SCH ×8 (09:16→22:23)
[2017-06-18] MEDS ORDERED: GLYCOPYRROLATE INJ 0.4 MG/2 ML VIAL IM SCH (10:00)
--- NOTE | 2017-06-18 10:43 | PDOC PROGRESS REPORT ---
Subjective Progress Note for:: 06/18/17 Subjective:: Patient is seen on morning rounds. He is more congested and tachypneic at the present time. He continues to have occasional Orlin Stoke breathing pattern with tachypnea and periods of apnea. He He remains nonverbal. His friends, and MPOAs are at bedside. They felt he was undermedicated for dyspnea last night and was more agitated because of it. We discussed making morphine on a scheduled dose as well as prn. Physical Exam Vital Signs: Temp Pulse Resp BP Pulse Ox 101.9 F H 25 H 125/92 H 94 06/16/17 21:35 06/16/17 23:15 06/16/17 23:01 06/16/17 23:15 Intake & Output 06/17/17 06/18/17 06/19/17 06:59 06:59 06:59 Intake Total 20 20 Output Total 600 Balance -580 20 Weight 80.9 kg 80.2 kg General appearance: PRESENT: mild distress, well-developed, well-nourished, other - aphasic and unresponsive Exam: aphasic Head exam: PRESENT: atraumatic, normocephalic Eye exam: PRESENT: conjunctival injection Ear exam: PRESENT: normal external ear exam Mouth exam: PRESENT: moist, tongue midline Neck exam: ABSENT: carotid bruit, JVD, lymphadenopathy, thyromegaly Respiratory exam: PRESENT: rhonchi, symmetrical, tachypnea Cardiovascular exam: PRESENT: RRR. ABSENT: diastolic murmur, rubs, systolic murmur Pulses: PRESENT: normal carotid pulses, normal radial pulses Vascular exam: PRESENT: normal capillary refill GI/Abdominal exam: PRESENT: normal bowel sounds, soft. ABSENT: distended, guarding, mass, organolmegaly, rebound, tenderness Rectal exam: PRESENT: deferred Extremities exam: PRESENT: other - flaccid x 4. ABSENT: calf tenderness, clubbing, pedal edema Musculoskeletal exam: PRESENT: other Neurological exam: PRESENT: altered, motor sensory deficit, aphasic, other - unresponsive Psychiatric exam: PRESENT: flat affect Skin exam: PRESENT: dry, intact, warm. ABSENT: cyanosis, rash Results Impressions: Chest X-Ray 06/16/17 21:11 IMPRESSION: Mild improvement in the opacities over the previous exam. Stable vascular congestion. Assessment & Plan - Diagnosis (1) Need for comfort care Is this a current diagnosis for this admission?: YesPlan: Comfort measures and medications are in place. Patient is experiencing no symptoms at the present time. Discussion with his MPOA regarding goals of care and options for hospice not involving acute care (2) Fever Qualifiers: Fever type: due to other condition Qualified Code(s): R50.81 - Fever presenting with conditions classified elsewhere Is this a current diagnosis for this admission?: YesPlan: Tylenol prn (3) CHF (congestive heart failure) Qualifiers: Congestive heart failure type: unspecified congestive heart failure type Congestive heart failure chronicity: unspecified congestive heart failure chronicity Qualified Code(s): I50.9 - Heart failure, unspecified Is this a current diagnosis for this admission?: YesPlan: Comfort measures only (4) COPD (chronic obstructive pulmonary disease) Qualifiers: COPD type: unspecified COPD Qualified Code(s): J44.9 - Chronic obstructive pulmonary disease, unspecified Plan: Comfort measures only (5) Hypoxemia Is this a current diagnosis for this admission?: Yes (6) Pneumonia Qualifiers: Pneumonia type: due to unspecified organism Laterality: right Lung location: lower lobe of lung Qualified Code(s): J18.1 - Lobar pneumonia, unspecified organism Plan: Comfort measures only (7) Sepsis Qualifiers: Sepsis type: sepsis due to unspecified organism Qualified Code(s): A41.9 - Sepsis, unspecified organism - Time Time Spent with patient: 25-34 minutes Critical Time spent with patient: 25-34 minutes Medications reviewed and adjusted accordingly: Yes Anticipated discharge: Hospice - Inpatient Certification Based on my medical assessment, after consideration of the patient's comorbidities, presenting symptoms, or acuity I expect that the services needed warrant INPATIENT care.: Yes I certify that my determination is in accordance with my understanding of Medicare's requirements for reasonable and necessary INPATIENT services [42 CFR 412.3e].: Yes
[2017-06-18] MEDS ORDERED: GLYCOPYRROLATE INJ 0.4 MG/2 ML VIAL IV PRN (11:58)
[2017-06-18] MEDS: LORAZEPAM INJ 2 MG/1 ML VIAL IV PRN ×2 (12:13→18:49)
--- NOTE | 2017-06-21 08:13 | Death Summary ---
Summary Date : 06/18/17 Time of :: 20:00 Autopsy: No Resuscitation Status: Comfort Measures Only Primary Care Provider: Juan Francisco Mitchell - Final Diagnosis (1) Need for comfort care Is this a current diagnosis for this admission?: Yes (2) Fever Is this a current diagnosis for this admission?: Yes (3) CHF (congestive heart failure) Is this a current diagnosis for this admission?: Yes (4) COPD (chronic obstructive pulmonary disease) Is this a current diagnosis for this admission?: Yes (5) Hypoxemia Is this a current diagnosis for this admission?: Yes (6) Pneumonia Is this a current diagnosis for this admission?: Yes (7) Sepsis Is this a current diagnosis for this admission?: No Hospital Course:: Patient presents to the emergency room from [facility], he had been sent there 6 hours prior. Patient's medical power of airport refueling handler states he received no nursing care for 6 hours or medications. Patient had been hospitalized here from 06/06/2017 to 06/17/2017, with bilateral pneumonia, large right MCA infarct, bilateral pulmonary emboli, sepsis, and acute respiratory failure. Patient eventually was made comfort care by his medical power of airport refueling handler's. He had been transferred to [facility] for palliative care. He was noted on arrival to the emergency room to have a temperature of 103 and Orlin Humphries respiratory pattern. Patient and POA wanted him to continue on comfort measures as an inpatient here. He required as needed morphine for dyspnea and had problems with pulmonary secretions. He was kept on comfort measures until he was noted to be apneic and asystolic today at 2000. Dr. Landaverde was notified by nursing staff. 2 RNs pronounced the patient
== END 2017-06-18 22:50 | disposition left against medical advice (07) | DRG 871 ==
LOC: ER 21:05 → UNDOADMOB 23:39 → EH 23:39 → 4N 06-17 01:00 → OBSVTOIN 06-18 10:27
PROVIDERS: ADMIT Family Medicine; ATTEND Family Medicine
DX: A41.9 Sepsis, unspecified organism (principal); J18.9 Pneumonia, unspecified organism; I26.99 Other pulmonary embolism without acute cor pulmonale; I50.22 Chronic systolic (congestive) heart failure; Z51.5 Encounter for palliative care; Z66 Do not resuscitate; I11.0 Hypertensive heart disease with heart failure; M19.90 Unspecified osteoarthritis, unspecified site; R09.02 Hypoxemia; Z86.73 Personal history of transient ischemic attack (TIA), and cerebral infarction without residual deficits; Z79.899 Other long term (current) drug therapy; Z88.0 Allergy status to penicillin; Z87.891 Personal history of nicotine dependence; Z83.3 Family history of diabetes mellitus; Z82.49 Family history of ischemic heart disease and other diseases of the circulatory system; Z80.8 Family history of malignant neoplasm of other organs or systems; Z79.51 Long term (current) use of inhaled steroids
CPT/HCPCS: 36415; 71010; 80053; 82803; 83605; 85025; 85610; 87040; 93005; 93010; 96374; 99285; G0378; J2060; J2270; J3490